=== PATIENT | female | born 1930 | race African-American/Black ===

== ENCOUNTER 2016-10-14 16:30 | Observation (INO) ==
--- NOTE | 2016-10-14 16:47 | Emergency Department Note ---
Disposition Clinical Impression: Syncope Qualifiers: Syncope type: unspecified Qualified Code(s): R55 - Syncope and collapse Disposition: Admitted As Inpatient Condition: Good Referrals: NO,PCP [Non-Partnered Physician] - Forms: ED Satisfaction Letter Time of Disposition: 18:18 Syncope HPI - General Chief Complaint: ED Syncope Stated Complaint: syncope/face injury Time Seen by Provider: 10/14/16 16:36 Source: patient Limitations: no limitations Nursing Notes Reviewed: Yes Vital Signs Reviewed: Yes - History of Present Illness HPI Narrative: 86-year-old who used the bathroom today when she stood up she suffered a syncopal episode striking her head. Family member was in the next room heard her fall when she went in to check on her she was on the floor but awake. Patient states she has a history of previous blood clots 6 years ago she's not on any blood thinner now she had a little chest discomfort is concerned she may have had a blood clot in her lung. 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 Duration: second(s) Prodromal Symptoms: none Witnessed: no Context: after urination Injuries Sustained Associated with Event: face, head Current Symptoms: none History: none Treatments prior to arrival: none - Related Data Home Medications Medication Instructions Recorded Confirmed Cholecalciferol (D-3) [Vitamin D] 2,000 unit PO DAILY 02/12/15 09/30/16 Losartan/Hydrochlorothiazide 1 tab PO DAILY 02/12/15 09/30/16 [Losartan-Hctz 100-25 mg Tab] Albuterol Neb [Proventil Neb] 2.5 mg IH Q4H PRN 06/06/16 09/30/16 Albuterol Sulfate [Proair Hfa] 2 puff IH Q4H PRN 06/06/16 09/30/16 Furosemide [Lasix] 40 mg PO DAILY 06/06/16 09/30/16 Previous Rx's Medication Instructions Recorded Meclizine [Antivert] 12.5 mg PO TID PRN 30 Days 08/11/15 Montelukast [Singulair] 10 mg PO HS tablet 08/11/15 Ascorbic Acid [Vitamin C] 1 tab PO DAILY #30 tablet 01/06/16 Furosemide [Lasix] 20 mg PO DAILY #30 tablet 06/07/16 Potassium Chloride 1 tab PO DAILY #30 tab.er.prt 07/06/16 Pantoprazole Sodium [Protonix] 40 mg PO DAILY #90 tablet. 09/30/16 Allergies Allergy/AdvReac Type Severity Reaction Status Date / Time No Known Allergies Allergy Verified 06/06/16 13:13 All systems ED: reviewed and negative except as stated. Constitutional: Denies: fever, chills, weakness, weight change Eyes: Denies: eye pain, eye discharge, vision change ENT ED: Denies: ear pain, throat pain, dental pain, hearing loss, epistaxis, congestion, dysphagia Cardiovascular: Reports: syncope. Denies: chest pain, palpitations, dyspnea on exertion, edema Respiratory: Denies: cough, dyspnea, wheezes, hemoptysis, stridor Gastrointestinal: Denies: abdominal pain, nausea, vomiting, diarrhea, constipation, hematemesis, melena, hematochezia Genitourinary: Denies: dysuria, frequency, hematuria, discharge Musculoskeletal: Denies: back pain, neck pain, arthralgia, myalgia Integumentary: Denies: rash, abrasion, lesions Neurological: Denies: headache, weakness, numbness, paresthesias, confusion, abnormal gait, vertigo Psychiatric: Denies: anxiety, depression, suicidal thoughts, homicidal thoughts , auditory hallucinations, visual hallucinations Endocrine: Denies: fatigue Hematological/Lymphatic: Denies: easy bleeding, easy bruising Allergic/Immunologic: Denies: facial swelling, urticaria Past Medical History - Past Medical History Medical history: Reports: asthma, cancer, DVT, diabetes, hyperlipidemia, hypertension, other Surgical history: Reports: BUD/BSO Psychiatric history: Reports: no psych 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: Reports: no SUPERVISOR PAINT history - Social History Smoking Status: Former smoker Smokeless Tobacco Status: No Alcohol use: Reports: none Drug use: Reports: none Physical Exam - General Limitations: no limitations General appearance: alert - Head Head exam: normocephalic, normal inspection - Eye Eye exam: Present: normal appearance, PERRL, EOMI - ENT ENT exam: normal exam, normal oropharynx, mucous membranes moist - Neck Neck exam: Present: normal inspection, full ROM, trachea midline - Chest Chest inspection: Present: normal inspection, symmetric chest wall rise - Respiratory Respiratory exam: Present: normal lung sounds bilaterally - Cardiovascular Cardiovascular exam: Present: regular rate, normal rhythm, normal heart sounds - Abdominal Exam Abdominal exam: Present: soft, Non-Tender. Absent: tenderness, distention, guarding, rebound, rigidity - Extremities Exam Extremities exam: Present: normal inspection, full ROM. Absent: tenderness, pedal edema - Expanded Lower Extremity Exam Neurovascular/Tendon exam: Absent: motor deficit, sensory deficit, tendon deficit Gait: observed and normal - Back Exam Back exam: Present: normal inspection, full ROM. Absent: tenderness - Neurological Exam Neurological exam: Present: alert, oriented X3 - Psychiatric Psychiatric exam: Present: normal affect, normal mood - Skin Skin exam: Present: warm, dry, intact, normal color Course - Consultations Consultation #1: Discussed with , it. Time: 18:18 Vital Signs Temperature 98.3 F 10/14/16 16:33 Pulse Rate 56 10/14/16 16:33 Respiratory Rate 16 10/14/16 16:33 Blood Pressure 174/70 10/14/16 16:33 O2 Sat by Pulse Oximetry 96 10/14/16 16:33 Temperature 98.3 F 10/14/16 16:33 Pulse Rate 55 10/14/16 17:49 Respiratory Rate 18 10/14/16 17:49 Blood Pressure 161/72 10/14/16 17:49 O2 Sat by Pulse Oximetry 98 10/14/16 17:49 Oxygen Delivery Oxygen Delivery Room Air Syncope - Lab Data Result diagrams: 10/14/16 17:18 10/14/16 17:18 Lab Results 10/14/16 10/14/16 10/14/16 Range/Units 17:18 17:18 17:18 WBC 9.8 (4.3-11.1) K/mcL RBC 4.99 H (3.82-4.97) M/mcL Hgb 13.2 (11.5-15.4) g/dL Hct 42.4 (35.3-44.9) % MCV 85.0 (83.0-100.0) fL MCH 26.5 L (28.0-33.3) pg MCHC 31.1 L (31.6-35.5) g/dL RDW 13.9 (11.5-14.5) % Plt Count 218 (140-400) K/mcL MPV 10.7 (9.4-12.4) fL Immature Gran % 0.7 (0-4) % Seg Neutrophils % 66.5 % Lymphocytes % 22.2 % Monocytes % 8.0 % Eosinophils % 2.2 % Basophils % 0.4 % Neutrophils # 6.5 (1.6-8.9) K/mcL Lymphocytes # 2.2 (0.6-4.6) K/mcL Monocytes # 0.8 (0.0-1.3) K/mcL Eosinophils # 0.2 (0.0-0.6) K/mcL Basophils # 0.0 (0.0-0.2) K/mcL PT 10.7 (9.4-12.1) Seconds INR 1.0 APTT 23.6 L (26.0-36.0) Seconds Sodium 141 (136-145) mEq/L Potassium 3.2 L (3.5-4.5) mEq/L Chloride 98 (98-109) mEq/L Carbon Dioxide 30 H (19-29) mEq/L BUN 35 H (7-20) mg/dL Creatinine 1.13 H (0.57-1.11) mg/dL Est GFR ( Amer) 55 L (> 60) Est GFR (Non-Af Amer) 46 L (> 60) BUN/Creatinine Ratio 31 H (6-26) Glucose 133 H (70-99) mg/dL Calculated Osmolality 302 H (280-300) Calcium 10.1 (8.6-10.8) mg/dL Troponin I (0-0.03) ng/mL 10/14/16 Range/Units 17:18 WBC (4.3-11.1) K/mcL RBC (3.82-4.97) M/mcL Hgb (11.5-15.4) g/dL Hct (35.3-44.9) % MCV (83.0-100.0) fL MCH (28.0-33.3) pg MCHC (31.6-35.5) g/dL RDW (11.5-14.5) % Plt Count (140-400) K/mcL MPV (9.4-12.4) fL Immature Gran % (0-4) % Seg Neutrophils % % Lymphocytes % % Monocytes % % Eosinophils % % Basophils % % Neutrophils # (1.6-8.9) K/mcL Lymphocytes # (0.6-4.6) K/mcL Monocytes # (0.0-1.3) K/mcL Eosinophils # (0.0-0.6) K/mcL Basophils # (0.0-0.2) K/mcL PT (9.4-12.1) Seconds INR APTT (26.0-36.0) Seconds Sodium (136-145) mEq/L Potassium (3.5-4.5) mEq/L Chloride (98-109) mEq/L Carbon Dioxide (19-29) mEq/L BUN (7-20) mg/dL Creatinine (0.57-1.11) mg/dL Est GFR ( Amer) (> 60) Est GFR (Non-Af Amer) (> 60) BUN/Creatinine Ratio (6-26) Glucose (70-99) mg/dL Calculated Osmolality (280-300) Calcium (8.6-10.8) mg/dL Troponin I 0.00 (0-0.03) ng/mL - EKG Data EKG attestation: Yes I reviewed and interpreted this EKG. EKG shows normal: sinus rhythm Rate: normal Rhythm: NSR Interpretation: no acute changes
[2016-10-14 17:26] LABS: Basophils % 0.4 %; Eosinophils # 0.2 K/mcL (0.0-0.6); Eosinophils % 2.2 %; Hematocrit 42.4 % (35.3-44.9); Hemoglobin 13.2 g/dL (11.5-15.4); Immature Granulocytes % 0.7 % (0-4); Lymphocytes # 2.2 K/mcL (0.6-4.6); Lymphocytes % 22.2 %; Mean Corpuscular HGB Conc 31.1 g/dL (31.6-35.5); Mean Corpuscular Hemoglobin 26.5 pg (28.0-33.3); Mean Platelet Volume 10.7 fL (9.4-12.4); Monocytes # 0.8 K/mcL (0.0-1.3); Neutrophils # 6.5 K/mcL (1.6-8.9); Platelet Count 218 K/mcL (140-400); Red Blood Count 4.99 M/mcL (3.82-4.97); Red Cell Distribution Width 13.9 % (11.5-14.5); Segmented Neutrophils % 66.5 %
[2016-10-14 17:33] LABS: Prothrombin Time 10.7 Seconds (9.4-12.1)
[2016-10-14 17:35] LABS: Activated Partial Thrombo Time 23.6 Seconds (26.0-36.0)
[2016-10-14 17:43] LABS: Calcium 10.1 mg/dL (8.6-10.8); Potassium 3.2 mEq/L (3.5-4.5)
[2016-10-14] MEDS ORDERED: 0.9 % Sodium Chloride 250 ML IVC ONE (18:06)
[2016-10-14] MEDS: 0.9 % Sodium Chloride 1,000 ML IVC SCH (18:12)
[2016-10-14] MEDS ORDERED: Naloxone 0.4 MG/ML INJ IVP PRN (21:22)
[2016-10-14] MEDS ORDERED: Acetaminophen 325 MG TABLET PO PRN (21:22)
[2016-10-14] MEDS ORDERED: D5% in Water 1,000 ML IVC PRN (21:22)
[2016-10-14] MEDS ORDERED: Dextrose Gel 15 GM PO PRN ×2 (21:22)
[2016-10-14] MEDS ORDERED: *HR* Promethazine 25 MG/ML VIAL IVP PRN (21:22)
[2016-10-14] MEDS ORDERED: *HR* Dextrose 50 % in Water (Syg) 50 ML SYRINGE IVP PRN (21:22)
--- NOTE | 2016-10-14 21:46 | Internal Med History&Physical ---
<Theresa Vergara - Last Filed: 10/14/16 21:35> Date of Encounter: 10/14/16 Time of Encounter: 21:35 Assessment and Plan (1) Syncope Current visit: Yes Status: Acute likely etiology cardiac, orthostatic, secondary to carcinoid tumor, diuretic therapy without pulm vasular filling defect, no indication of PE, stable RLL nodule, enlarged LLL nodule compared to 11/2015 ECHO from 11/29 with EF 65%, moderate aortic regurgitation, diastolic CHF EKG: NSR headCT - for acute bleed carotid US from 11/29 evidence of nonstenotic plaque K3.2 BP 164/74, P55 will get ortho statics check Mg BUN 35/Cr1.13 glucose 133 IVF Hb 13.2 Qualifiers: Syncope type: unspecified Qualified Code(s): R55 - Syncope and collapse (2) Hypokalemia Current visit: Yes Status: Acute 3.2 will replace and monitor (3) CKD (chronic kidney disease) Current visit: Yes Status: Acute BUN 35/Cr 1.13 close to baseline GFR 46 IVF Qualifiers: Chronic kidney disease stage: unspecified stage Qualified Code(s): N18.9 - Chronic kidney disease, unspecified (4) Diabetes Current visit: No Status: Chronic glucose 133 sliding scale diabetic diet monitor Qualifiers: Diabetes mellitus type: type 2 Diabetes mellitus complication status: without complication Qualified Code(s): E11.9 - Type 2 diabetes mellitus without complications (5) HTN (hypertension) Current visit: No Status: Chronic 164/74 goal systolic of 150-160s per oncology secondary to carciniod tumor Qualifiers: Hypertension type: essential hypertension Qualified Code(s): I10 - Essential (primary) hypertension (6) Lightheadedness Current visit: No Status: Acute SCDs pharmocologic contraindicated due to recent GI gleed (7) History of GI bleed Current visit: No Status: Acute (8) Diastolic dysfunction Current visit: No Status: Acute (9) Moderate aortic regurgitation Current visit: No Status: Acute (10) Malignant neoplasm Current visit: No Status: Chronic (11) Dizziness Current visit: No Status: Acute (12) Hyperlipidemia Current visit: No Status: Acute Qualifiers: Hyperlipidemia type: unspecified Qualified Code(s): E78.5 - Hyperlipidemia , unspecified (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 Curry is a 86 year old female c/o syncope. PMHx carcinoid tumor, CVA, HLD, HTN, asthma, CHF,CKD,DM with c/o syncopal episode. Pt states she was at Dr. Rice office earlier today for HTN appointment when she went to the rest room. Upon standing from seated pt immediately passed out. Home nurse who took her to appointment heard her fall and found her on the ground, she was down for apprximately 2-3mins. Pt states prior to event she had no difficulty with urination, did not have any palpitations, racing heart beats, diaphoresis, dizziness, vision change. She states that she was asymptomatic prior to event, does not recall fall and "came to" while laying on the floor with a bloody nose. After syncopal episode, pt states she felt "queasy to her stomach" had cold sweats some racing heartbeats and anxiety. Pt states she has had some recent trouble with her blood pressure running high this week, as well as problems with her blood sugars due to recently stopping steriod taper she was placed on for asthma exacerbations. Pt admits to slight 3/10 frontal headache and nasal pain from were she hit her head when she fell. Pt also admits to several episodes of "dizziness" off and on recently, but has never fainted before. Pt states she had not eaten or had much water to drink today. Pt denies current CP, change in vision, weakness, SOB, numbness/tingling. Past Med Surg Social Fam HX - Past Medical History Medical history: asthma, cancer, CHF, CVA, DVT, diabetes, hyperlipidemia, hypertension, renal disease, other Psychiatric history: no psych history - Past Surgical History Surgical History: BUD/BSO - Social History Smoking Status: Former smoker Smokeless Tobacco Status: No Alcohol use: none Drug use: none - Family History Father Adopted: No Family Member Ethnicity: Non- Living Status: Hx Family Cardiac Disorders: No Hx Family Respiratory Disorders: Yes (lung cancer) Hx Family Cancer: Yes (lung) Hx Family GI Disorders: No Hx Family Endocrine Disorder: No Hx Family Neuromuscular Disorders: No Hx Family Neurologic Disorders: No Hx Family HEENT Disorders: No Hx Family Autoimmune Disorders: No Internal Medicine - H&P: Meds Losartan/Hydrochlorothiazide [Losartan-Hctz 100-25 mg Tab] 1 tab PO DAILY [History] Montelukast [Singulair] 10 mg PO HS tablet 08/11/15 [Rx] Albuterol Sulfate [Proair Hfa] 2 puff IH Q4H PRN 06/06/16 [History] Furosemide [Lasix] 40 mg PO DAILY 06/06/16 [History] Pantoprazole Sodium [Protonix] 40 mg PO DAILY #90 tablet.dr 09/30/16 [Rx] Amlodipine [Norvasc] 2.5 mg PO DAILY 10/14/16 [History] Ascorbic Acid [Vitamin C] 500 mg PO DAILY 10/14/16 [History] Potassium Chloride 10 meq PO DAILY 10/14/16 [History] Allergies No Known Allergies Allergy (Verified 06/06/16 13:13) All Systems PM: A 10-system review of systems was performed and is negative for pertinent findings except as documented above in the HPI. - Constitutional Constitutional: falls, no chills, no fever(s), no night sweats - EENT Eyes: no change in vision, no discharge, no pain, no photophobia Nose, mouth and throat: no dysphagia, no nasal discharge, no neck pain, no sore throat - Cardiovascular Cardiovascular ROS IM: no chest pain, no diaphoresis, no dyspnea, no lightheadedness, no palpitations, no syncope - Respiratory Respiratory: no cough, no dyspnea, no wheezing, no excessive phlegm production - Gastrointestinal Gastrointestinal: no abdominal pain, no diarrhea, no hematemesis, no hematochezia, no melena, no nausea, no vomiting - Genitourinary Genitourinary: no change in urinary stream, no dysuria, no flank pain, no hematuria - Musculoskeletal Musculoskeletal ROS IM: no numbness, no tingling - Integumentary Integumentary IM: no rash, no unusual bruising - Neurological Neurological ROS: disequilibrium, dizziness, headache(s), memory loss, no convulsions, no numbness, no tingling - Constitutional Vitals: Temp Pulse Resp BP Pulse Ox 97.9 F 61 16 177/72 97 10/14/16 20:46 10/14/16 20:46 10/14/16 20:46 10/14/16 20:46 10/14/16 20:46 General appearance: Present: A&O X 3, pleasant, no acute distress, answers questions appropriately - Head Head exam: Present: atraumatic, normocephalic Additional comments: frontal and nasal bone tenderness, minimal bruising - Eye Eye exam: Present: EOMI, PERRL, conjuntiva pink, sclera anicteric Pupils: Present: PERRL - Neck Neck exam general surgery: Present: supple, trachea midline. Absent: lymphadenopathy - Respiratory Respiratory exam: Present: CTAB. Absent: accessory muscle use, rales, rhonchi, wheezes - Cardiovascular Cardiovascular exam: Present: RRR, +S1, +S2. Absent: diastolic murmur, gallop, rubs, systolic murmur - GI/Abdominal GI/Abdominal exam: Present: normal bowel sounds, soft, no peritoneal signs. Absent: distended, tenderness - Extremities Exam Extremities exam: Present: warm, radial pulses palpable and symetrical. Absent : calf tenderness, cyanotic, pedal edema - Neurological Exam Neurological exam: Present: CN II-XII intact, oriented X3, no focal deficits. Absent: pronater drift, facial droop, speech deficit - Skin Skin exam: Present: dry, intact Internal Med - H&P Results - Labs CBC & Chem 7: 10/14/16 17:18 10/14/16 17:18 <Syed Caballero - Last Filed: 10/14/16 22:57> Date of Encounter: 10/14/16 Internal Medicine - H&P: HPI History of present illness: Ms. Curry is a 86 year old female Past Med Surg Social Fam HX - Family History Father Adopted: No Family Member Ethnicity: Non- Living Status: Hx Family Cardiac Disorders: No Hx Family Respiratory Disorders: Yes (lung cancer) Hx Family Cancer: Yes (lung) Hx Family GI Disorders: No Hx Family Endocrine Disorder: No Hx Family Neuromuscular Disorders: No Hx Family Neurologic Disorders: No Hx Family HEENT Disorders: No Hx Family Autoimmune Disorders: No Mother Hx Family Neuromuscular Disorders: Yes Hx Family Neurologic Disorders: Yes All Systems PM: A 10-system review of systems was performed and is negative for pertinent findings except as documented above in the HPI. - Constitutional Vitals: Temp Pulse Resp BP Pulse Ox 97.9 F 61 16 177/72 97 10/14/16 20:46 10/14/16 20:46 10/14/16 20:46 10/14/16 20:46 10/14/16 20:46 Internal Med - H&P Results - Labs CBC & Chem 7: 10/14/16 17:18 10/14/16 17:18 - Attending Attestation I examined this patient and my medical decision-making was reviewed with the POULTRY FARMER EGG/PA/Advanced Practice Nurse/Resident Physician. I agree with the documented findings, disposition and treatment plan as described except to the extent set forth below. Ms. Curry is a very pleasant lady. I examined the patient independent. I did discuss the case with the resident Dr. Theresa Vergara. I agree with her physical examination findings, assessment and plan. Continue with telemetry monitoring. Supplemental potassium. Monitor electrolytes.
[2016-10-15] MEDS: Insulin LISPRO 300 UNITS/3 ML VIAL SQ SCH ×4 (00:08→17:04)
[2016-10-15 00:22] LABS: Magnesium 2.2 mg/dL (1.6-2.6); Phosphorous 3.2 mg/dL (2.3-4.7)
[2016-10-15 04:28] LABS: Hematocrit 37.1 % (35.3-44.9); Mean Corpuscular HGB Conc 32.3 g/dL (31.6-35.5); Mean Corpuscular Hemoglobin 27.1 pg (28.0-33.3); Mean Corpuscular Volume 83.9 fL (83.0-100.0); Mean Platelet Volume 10.8 fL (9.4-12.4); Platelet Count 243 K/mcL (140-400); Red Blood Count 4.42 M/mcL (3.82-4.97); Red Cell Distribution Width 14.1 % (11.5-14.5)
[2016-10-15 04:46] LABS: Alanine Aminotransferase 12 Units/L (0-55); Albumin 3.5 g/dL (3.5-5.0); Albumin/Globulin Ratio 1.2 (1.1-2.2); Alkaline Phosphatase 56 Units/L (38-126); Aspartate Amino Transferase 14 Units/L (5-34); BUN/Creatinine Ratio 31 (6-26); Bilirubin,Total 0.5 mg/dL (0.2-1.2); Blood Urea Nitrogen 32 mg/dL (7-20); Calcium 9.4 mg/dL (8.6-10.8); Carbon Dioxide 28 mEq/L (19-29); Chloride 104 mEq/L (98-109); Glucose 54 mg/dL (70-99); Osmolality,Calculated 300 (280-300); Potassium 3.1 mEq/L (3.5-4.5); Sodium 143 mEq/L (136-145); Total Protein 6.5 g/dL (6.0-8.3); eGFR For African Americans > 60 (> 60); eGFR For Non-African Americans 51 (> 60)
[2016-10-15] MEDS: *HR* Heparin 5,000 UNIT/ML VIAL SQ SCH ×2 (05:48→18:02)
[2016-10-15] MEDS: amLODIPine 5 MG TABLET PO SCH (08:52)
[2016-10-15] MEDS: 0.9 % Sodium Chloride 1,000 ML IVC SCH ×2 (11:10→19:33)
[2016-10-15] MEDS: Pantoprazole 40 MG VIAL IVP SCH (16:28)
--- NOTE | 2016-10-15 17:00 | Internal Med Progress Note ---
Date of Encounter: 10/15/16 Time of Encounter: 10:00 - Assessment and plan (1) Syncope Current Visit: Yes Status: Acute Assessment and plan: Pt reports having a loss of consciousness at drs office yesterday. Pt states that she went to the bathroom prior to leaving the appointment and when she was standing up, she had a syncopal episode. She is unaware of how long she was unconscious. Chest xray is negative. CTA shows no evidence of PE, but nodules are noted and compared to prior exams. Nodule in RLL is unchanged, LLL nodule has increased slightly since 12/08/15. Pt had carotid duplex in 05/2016 which showed minimal plaque bilaterally. Pt denies any symptoms at the time of the event. No vision changes, sob, dizziness, n/v, chest pain. Head CT negative for any intracranial abnormality. 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 + loss of consciousness. Pt has +nasal fx from fall. She denies pain. Head CT negative, Cervical spine CT negative, chronic degenerative changes. Plan as above. Qualifiers: Encounter type: initial encounter Qualified Code(s): W19.XXXA - Unspecified fall, initial encounter (3) Diabetes Current Visit: No Status: Chronic Assessment and plan: A1c at goal. Accuchecks slightly elevated. Diabetic diet Sliding scale insulin Accuchecks achs Qualifiers: Diabetes mellitus type: type 2 Diabetes mellitus complication status: without complication Diabetes mellitus correction insulin use: without correction use Qualified Code(s): E11.9 - Type 2 diabetes mellitus without complications (4) HTN (hypertension) Current Visit: No Status: Chronic Assessment and plan: Chronic. Continue home medications. Qualifiers: Hypertension type: essential hypertension Qualified Code(s): I10 - Essential (primary) hypertension (5) Metastatic carcinoid tumor Current Visit: No Status: Chronic Assessment and plan: Stable. Pt is followed by Oncology, Dr. Lopez. (6) COPD (chronic obstructive pulmonary disease) Current Visit: Yes Status: Chronic Assessment and plan: Pt reports history of COPD. Stable and well-controlled. Continue home medications. Qualifiers: COPD type: chronic bronchitis Chronic bronchitis type: unspecified Qualified Code(s): J42 - Unspecified chronic bronchitis (7) DVT prophylaxis Current Visit: No Status: Acute Assessment and plan: Heparin subq - Time Spent With Patient less than 15 minutes - Subjective Interval history: Pt reports fall at Dr. Tucker's office yesterday. She states that she went to the bathroom prior to leaving the office and stood up from the toilet and remembers waking up after that. She says that she did lose consciousness, but is unsure of how long. Her home health aide was with her and assited her. Pt did fx her nose in the fall. She denies sob, dizziness, lightheadeness, chest pain, or dyspnea prior to event. She was seeing PCP due to recent hypertension and hyperglycemia. She was started on Norvasc at the appointment and took her first dose today. - Constitutional Vitals: Temp Pulse Resp BP Pulse Ox 97.7 F 53 16 180/60 98 10/15/16 16:11 10/15/16 16:11 10/15/16 16:11 10/15/16 16:11 10/15/16 16:11 General appearance: Present: A&O X 3, pleasant, no acute distress, answers questions appropriately - Head Additional comments: Pt has bruising to both cheeks from fall yesterday. - Expanded Head Exam Head exam expanded: Present: contusion, hematoma - Eye Eye exam: Present: normal appearance, PERRL, conjuntiva pink - ENT ENT exam: Present: mucous membranes moist, normal exam - Neck Neck exam general surgery: Present: normal inspection. Absent: lymphadenopathy , tenderness - Respiratory Respiratory exam: Present: CTAB. Absent: decreased breath sounds, rales, respiratory distress, rhonchi, stridor, wheezes, tachypnea - Cardiovascular Cardiovascular exam: Present: RRR, +S1, +S2. Absent: diastolic murmur, systolic murmur - Back Exam Back exam: Present: normal inspection. Absent: tenderness - Neurological Exam Neurological exam: Present: alert, oriented X3, no focal deficits, strengths equal and symetr throughout. Absent: pronater drift, facial droop, speech deficit Internal Medicine: Result - Labs CBC & Chem 7: 10/15/16 03:26 10/15/16 03:26 Labs: Short CBC 10/15/16 Range/Units 03:26 WBC 13.7 H (4.3-11.1) K/mcL Hgb 12.0 (11.5-15.4) g/dL Hct 37.1 (35.3-44.9) % Plt Count 243 (140-400) K/mcL BMP 10/15/16 03:26 Sodium 143 Potassium 3.1 L Chloride 104 Carbon Dioxide 28 BUN 32 H Creatinine 1.03 Glucose 54 L Calcium 9.4 Cardiac Enzymes 10/14/16 10/15/16 10/15/16 Range/Units 23:48 03:26 09:51 Troponin I 0.01 0.02 0.01 (0-0.03) ng/mL Liver Function 10/15/16 Range/Units 03:26 Total Bilirubin 0.5 (0.2-1.2) mg/dL AST 14 (5-34) Units/L ALT 12 (0-55) Units/L Alkaline Phosphatase 56 (38-126) Units/L Albumin 3.5 (3.5-5.0) g/dL - ABG Interpretation ABG results: PT/INR, D-dimer PT 10.7 Seconds (9.4-12.1) 10/14/16 17:18 Consult Discharge Plan - Plan Referrals: Antwan Tucker Jr, MD [Primary Care Provider] -
[2016-10-15] MEDS ORDERED: Insulin LISPRO 300 UNITS/3 ML VIAL SQ SCH (21:00)
[2016-10-16] MEDS: 0.9 % Sodium Chloride 1,000 ML IVC SCH (03:43)
[2016-10-16] MEDS: *HR* Heparin 5,000 UNIT/ML VIAL SQ SCH (05:08)
[2016-10-16 05:55] LABS: Hematocrit 35.6 % (35.3-44.9); Hemoglobin 11.3 g/dL (11.5-15.4); Immature Granulocytes % 0.7 % (0-4); Lymphocytes % 25.7 %; Mean Corpuscular HGB Conc 31.7 g/dL (31.6-35.5); Mean Corpuscular Volume 85.2 fL (83.0-100.0); Mean Platelet Volume 10.7 fL (9.4-12.4); Platelet Count 177 K/mcL (140-400); Red Blood Count 4.18 M/mcL (3.82-4.97); Red Cell Distribution Width 14.1 % (11.5-14.5); Segmented Neutrophils % 61.8 %
[2016-10-16 05:56] LABS: Basophils % 0.6 %; Eosinophils # 0.3 K/mcL (0.0-0.6); Eosinophils % 4.2 %; Lymphocytes # 1.9 K/mcL (0.6-4.6); Monocytes # 0.5 K/mcL (0.0-1.3); Neutrophils # 4.5 K/mcL (1.6-8.9)
[2016-10-16 06:09] LABS: BUN/Creatinine Ratio 23 (6-26); Calcium 8.6 mg/dL (8.6-10.8); Carbon Dioxide 27 mEq/L (19-29); Chloride 112 mEq/L (98-109); Glucose 139 mg/dL (70-99); Osmolality,Calculated 303 (280-300); Sodium 144 mEq/L (136-145); eGFR For African Americans > 60 (> 60); eGFR For Non-African Americans > 60 (> 60)
[2016-10-16 06:18] LABS: Blood Urea Nitrogen 19 mg/dL (7-20)
[2016-10-16] MEDS: Insulin LISPRO 300 UNITS/3 ML VIAL SQ SCH ×2 (07:53→12:10)
[2016-10-16] MEDS: amLODIPine 5 MG TABLET PO SCH (07:59)
[2016-10-16] MEDS: Pantoprazole 40 MG VIAL IVP SCH (08:00)
[2016-10-16] MEDS ORDERED: Ascorbic Acid 500 MG TABLET PO SCH (09:00)
--- NOTE | 2016-10-16 10:42 | Electrocardiograph Report ---
[address] [address] Test Date: 2016-10-14 Pat Name: Jennifer Curry Department: 104 Room: 3B12 Gender: F Audit Lead: : 1930 Requested By: Ryan Hernandez Order Number: [id number] Reading MD: Wu Guardado MD Measurements Intervals Ryder Rate: 54 P: 76 MA: 249 QRS: 18 QRSD: 93 T: 44 QT: 437 QTc: 422 Interpretive Statements SINUS BRADYCARDIA WITH FIRST DEGREE AV BLOCK WITH FREQUENT SUPRAVENTRICULAR PREMATURE COMPLEXES IN A BIGEMINAL PATTERN Electronically Signed On 10-16-2016 10:41:37 EDT by Wu Guardado MD
[2016-10-16 11:14] VITALS: BP 169/67
--- NOTE | 2016-10-16 13:00 | ECHO - Doppler Report ---
Echocardiogram Name: Jennifer Curry Date of Study: 10/16/2016 Date: 1930 Ht: 67.0 in Medical Record#: [id number] Age: 86 Wt: 174.0 lb Gender: Female BSA: 1.91 Order #: [id number] Location: [facility] Room #: 3B12 Reading Physician: Yamile Graff DO Geoint Analyst: Migdalia Crystal Ordering Physician: Madeleine Crum CNP Primary Physician: Antwan Tucker MD Indications: dizzy, syncope Impressions: LVEF 55%. Normal left ventricular size and systolic function. Normal right ventricular size and function. Moderate aortic regurgitation. Mild mitral regurgitation. Mild tricuspid regurgitation. No pulmonary hypertension. Left Ventricular Wall Motion: Rest Echo Findings All wall segments showed normal motion. Findings: Study Quality * Technically adequate exam. ECG Findings * Normal sinus rhythm. Left Ventricle * Normal LV chamber size, wall thickness and function. * LVEF 55%. * Moderate left ventricular diastolic dysfunction. Mitral Valve * Normal mitral valve structure. * No mitral stenosis. * Mild mitral regurgitation. Aortic Valve * Aortic valve not well visualized. * No aortic stenosis. * Moderate aortic regurgitation. Tricuspid Valve * Normal tricuspid valve structure. * Mild tricuspid regurgitation. * Estimated RA pressure is 3 mmHg. * Estimated RVSP is 31 mmHg. * No pulmonary hypertension. Pulmonic Valve * Pulmonic valve is not well visualized. * No pulmonic stenosis. * No pulmonic regurgitation. Pulmonary Artery * Pulmonary artery not well visualized. Right Ventricle * Normal right ventricular structure and function. Right Atrium * Normal right atrial size. Left Atrium * Mildly dilated left atrium. Interatrial Septum * No evidence of PFO by color Doppler. IVC * Normal IVC dimensions and inspiratory collapse. Pericardium * There is no pericardial effusion present. Aorta * Normally sized aortic root. History Hypertension Diabetes Family History of CAD 06/06/2016 a Previous Echo was performed. Measurements: BP: 157/ 66 2D Normal Values IVSd: 1.00 cm 0.6 - 1.0 cm LVIDd: 3.90 cm 3.7 - 5.6 cm LVPWd: 1.10 cm 0.6 - 1.1 cm LVIDs: 2.70 cm 1.5 - 3.6 cm AO: 2.30 cm < 4.0 cm LA: 3.40 cm 2.0 - 4.0cm %FS: 30.80 cm >25 % LA volume: 62 Mitral Valve Peak E:.73 m/sec Peak A:.59 m/sec E/A Ratio:1.2 Peak E' Lat Micky:8.58 cm/s Peak E' Med Micky:7.8 cm/s E/E' Lat Ratio:8.5 E/E' Med Ratio:9.3 Tricuspid Valve TV Regurg Peak Grad: 28.00mmHg TV Regurg Peak Micky: 2.66m/sec Updated by Yamile Graff on 10/16/2016 12:49:14 PM electronically signed on 10/16/2016 12:54:03 PM with status of Final Wall Motion Olsen: 1=Normal, 2=Hypokinesis, 3=Akinesis, 4=Dyskinesis, 5=Aneurysmal, 6=Hyperkinetic, X=Not Visualized (Blank)=Missing
--- NOTE | 2016-10-16 14:33 | Discharge Summary ---
Date of Encounter: 10/16/16 Time of Encounter: 08:25 - Discharge Diagnosis (1) Syncope Priority: Primary Status: Acute Comments: Pt had a syncopal episode at PCP office 2 days ago. She denies any symptoms leading up to the event, no nausea, sob, diaphoresis, chest pain, dizziness. States that she stood up from the toilet and woke up in the floor. She did sustain nasal fracture from the fall. Her EKG was normal sinus rhythm, Echo showed LVEF 55% with normal systolic function. Mild aortic, mitral, and tricuspid regurgitation noted, as well. Her head CT was negative for infarct or intracranial abnormality. She has had no other episodes or difficulty since admission. Carotids from 11/29 show evidence of non-stenotic plaque. She was being seen at PCP for hyperglycemia and HTN. She was started on Norvasc, which does not seem to have had much effect here, it was a low dose. I will increase the dose. Syncope most likely from diuretic therapy and carcinoid tumor. Her blood pressure has been slightly elevated while she has been here, however, that is what she was being seen for at her PCP office. I will decrease her dose of lasix and losartan/Hctz. Pt will follow up with PCP for a hospital follow up and reevaluation of medications. Qualifiers: Syncope type: unspecified Qualified Code(s): R55 - Syncope and collapse (2) Fall Priority: Secondary Status: Acute Comments: Pt fell at PCP office, nasal fracture is the result. Pt states that she does not remember the event. She denies pain and has no other injury. She had several xrays and a head and cervical CT, all negative for fracture, dislocation , or abnormality. Pt denies pain. Qualifiers: Encounter type: initial encounter Qualified Code(s): W19.XXXA - Unspecified fall, initial encounter (3) Diabetes Priority: Secondary Status: Chronic Comments: A1c is at goal. Accuchecks remain slightly elevated. Pt will continue home medications and accuchecks as normal after discharge. Qualifiers: Diabetes mellitus type: type 2 Diabetes mellitus complication status: without complication Diabetes mellitus retirement insulin use: without retirement use Qualified Code(s): E11.9 - Type 2 diabetes mellitus without complications (4) HTN (hypertension) Priority: Secondary Status: Chronic Comments: Pt has been experiencing HTN for several weeks, was being seen at PCP office for same when she fell and was later admitted. I will increase the Norvasc dose, decrease HCTZ, and decrease lasix dose. Pt will need to follow up with PCP for reevaluation. 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 Stable. Pt is followed by oncology, Dr. Lopez. (6) COPD (chronic obstructive pulmonary disease) Priority: Secondary Status: Chronic Comments: Chronic. Well-controlled. Continue home medications. Qualifiers: COPD type: chronic bronchitis Chronic bronchitis type: unspecified Qualified Code(s): J42 - Unspecified chronic bronchitis (7) Nasal bone fx-closed Priority: Secondary Status: Acute Comments: Patient sustained a closed fracture of her nasal bones after fall at primary care physician's office. There is good alignment. Minimal racial bruising. No epistaxis. Patient denies pain or headache. She has been applying ice pack and has not requested any pain medication. She is not having any difficulty breathing through her nose. Qualifiers: Encounter type: initial encounter Qualified Code(s): S02.2XXA - Fracture of nasal bones, initial encounter for closed fracture (8) DVT prophylaxis Priority: Secondary Status: Acute Comments: Subq heparin - Discharge Medications Prescriptions: Amlodipine [Norvasc] 5 mg PO DAILY #30 tablet Furosemide [Lasix] 20 mg PO DAILY #30 tablet Losartan/Hydrochlorothiazide [Hyzaar 100-12.5 Tablet] 1 each PO DAILY #30 tablet Home Medications: Montelukast [Singulair] 10 mg PO HS tablet 08/11/15 [Rx] Albuterol Sulfate [Proair Hfa] 2 puff IH Q4H PRN 06/06/16 [History] Pantoprazole Sodium [Protonix] 40 mg PO DAILY #90 tablet. 09/30/16 [Rx] Ascorbic Acid [Vitamin C] 500 mg PO DAILY 10/14/16 [History] Potassium Chloride 10 meq PO DAILY 10/14/16 [History] Amlodipine [Norvasc] 5 mg PO DAILY #30 tablet 10/16/16 [Rx] Furosemide [Lasix] 20 mg PO DAILY #30 tablet 10/16/16 [Rx] Losartan/Hydrochlorothiazide [Hyzaar 100-12.5 Tablet] 1 each PO DAILY #30 tablet 10/16/16 [Rx] Allergies/Adverse Reactions: Allergies No Known Allergies Allergy (Verified 06/06/16 13:13) Procedures/tests Complete & Pending: Procedures Performed prior 72 hours Category Date Time Status EV echocardiogram Routine Y 10/16/16 16:54 Completed Date of admission: 10/14/16 18:51 Primary care physician: Antwan Tucker Jr, MD Discharging clinician: Madeleine Crum Anticipated date of discharge: 10/16/16 - Patient Status Disposition: Home, Self-Care Functional capacity at discharge: independent ambulation Overall status at discharge: patient is back to baseline - Discharge Instructions Follow Up With: Antwan Tucker Jr, MD [Primary Care Provider] - Additional Instructions: Take your medications as directed. Restart your home medications Please follow up with Dr. Tucker within the next week for a hospital follow up and reevaluation of your medications and blood pressure Return to the ED if you have any other problems or concerns or if you have any new or concerning symptoms. - Diet and Activity Activity: increase activity as tolerated Diet: advance to your usual diet Interval History: Patient was admitted 2 days ago after syncopal episode at her primary care physician's office. She went to the bathroom, and she stood up from the toilet she evidently had a positive loss of consciousness. She does not remember the event and remembers waking up in the bathroom floor with blood coming from her nose. She denies symptoms prior to the event. She denies nausea, diaphoresis, shortness of breath, dizziness, or chest pain. She was brought to the emergency department for evaluation. She was actually being seen at primary care for hypertension and hyperglycemia. She was recently treated with steroids for a respiratory problem. She has nasal fractures from fall. Chest x -ray is negative. CTA shows no evidence of PE, but nodules are noted and compared to prior exams and are stable. Patient is aware of these and does follow for them. She had carotid duplex in May, which showed minimal plaque bilaterally. Her head CT was also negative for any intracranial abnormality. Patient also had a cervical spine CT in the ER which was negative. Patient had an echocardiogram today, LVEF is 55% with normal systolic function. There is mild mitral regurgitation and mild tricuspid regurgitation, and moderate aortic regurgitation. Her syncopal episode is most likely orthostatic, secondary to diuretic therapy and carcinoid tumor. She had been started on Norvasc 2.5 mg at primary care the day of her syncopal episode, she received her first dose here. It did not seem to have much effect, although patient's hydrochlorothiazide and Lasix were held during hospitalization. I did decrease hydrochlorothiazide to half and Lasix by half and bumped the Norvasc to 5 mg by mouth. I did give her a dose of IV hydralazine one time for hypertension this morning. Blood pressure was 169/67. Patient is alert and oriented, she denies headache, blurred vision, nausea, palpitations, chest pain. She states that she feels much better and is ready to go home. She is stable for discharge. Hospital course: Ms. Curry is a 86 year old female - Time Spent with Patient Total time spent providing and/or coordinating discharge services: - Constitutional Vitals: Temp Pulse Resp BP Pulse Ox 98.0 F 67 16 169/67 100 10/16/16 11:08 10/16/16 11:08 10/16/16 11:08 10/16/16 11:08 10/16/16 11:08 General appearance: Present: A&O X 3, pleasant, no acute distress, answers questions appropriately - Head Additional comments: Patient has fading bruising to inner canthus bilateral eyes - Eye Eye exam: Present: normal appearance, conjuntiva pink - ENT ENT exam: Present: mucous membranes moist, normal exam - Respiratory Respiratory exam: Present: CTAB. Absent: decreased breath sounds, rales, respiratory distress, rhonchi, stridor, wheezes, tachypnea - Cardiovascular Cardiovascular exam: Present: RRR, +S1, +S2. Absent: diastolic murmur, systolic murmur - Expanded Cardiovascular Exam Peripheral pulses: 1+: Dorsalis Pedis (L) PM, Dorsalis Pedis (R) PM - GI/Abdominal GI/Abdominal exam: Present: normal bowel sounds, soft. Absent: tenderness - Extremities Exam Extremities exam: Present: warm, radial pulses palpable and symetrical. Absent : pedal edema, tenderness - Neurological Exam Neurological exam: Present: alert, oriented X3. Absent: facial droop, speech deficit
== END 2016-10-16 16:01 | disposition home health service (06) ==
LOC: EMEROO 16:30 → 3BNU 16:30
PROVIDERS: ADMIT Internal Medicine; ATTEND Registered Nurse

== ENCOUNTER 2016-10-18 23:15 | Inpatient (IN) ==
[2016-10-19 00:54] LABS: Basophils % 0.5 %; Eosinophils # 0.2 K/mcL (0.0-0.6); Eosinophils % 1.8 %; Hematocrit 39.1 % (35.3-44.9); Hemoglobin 12.4 g/dL (11.5-15.4); Immature Granulocytes % 0.9 % (0-4); Lymphocytes # 1.8 K/mcL (0.6-4.6); Lymphocytes % 20.3 %; Mean Corpuscular HGB Conc 31.7 g/dL (31.6-35.5); Mean Platelet Volume 10.7 fL (9.4-12.4); Monocytes # 0.5 K/mcL (0.0-1.3); Monocytes % 6.1 %; Neutrophils # 6.2 K/mcL (1.6-8.9); Platelet Count 211 K/mcL (140-400); Red Cell Distribution Width 14.2 % (11.5-14.5); Segmented Neutrophils % 70.4 %
--- NOTE | 2016-10-19 00:59 | Emergency Department Note ---
Disposition Clinical Impression: Acute renal insufficiency Disposition: Admitted As Inpatient Condition: Fair Referrals: Antwan Tucker Jr, MD [Primary Care Provider] - Forms: ED Satisfaction Letter Time of Disposition: 02:15 General Adult HPI - General Chief complaint: ED Dizziness Stated complaint: high BP, dizzy Time Seen by Provider: 10/19/16 00:27 Source: patient, family Limitations: no limitations Nursing Notes Reviewed: Yes Vital Signs Reviewed: Yes - History of Present Illness HPI Narrative: Alert and oriented and nontoxic-appearing 86-year-old female presents to the emergency department for evaluation of "high blood pressure and dizziness". The patient states just prior to arrival to the emergency department, she obtained a blood pressure reading from her home blood pressure machine of 185/ 85. She also states that she took her blood sugar at home and it was slightly elevated at 205. She states that she was recently admitted to this hospital for further evaluation and workup of this exact same complaint. She was released on this past Monday. She was told to return for any recurrence of her symptoms. She also admits to being "worked up and anxious". She attributes this to a recently discontinued 5 day course of prednisone. She states that at the time that she obtained her elevated blood pressure reading, she did feel slightly dizzy, however denies having any visual disturbances at that time. She denies any associated chest pain or shortness of breath. She denies any headache, visual disturbances, fever, chills, nausea, vomiting, diarrhea, or any other concerns or complaints at this time. The patient is resting comfortably in bed at the time of my exam. Onset (ago): Just FLOOR HAND Pain Scale: 0 Associated symptoms: Denies: chest pain, cough, diaphoresis, fever/chills, headaches, loss of appetite, nausea/vomiting, shortness of breath, weakness - Related Data Home Medications Medication Instructions Recorded Confirmed Albuterol Sulfate [Proair Hfa] 2 puff IH Q4H PRN 06/06/16 10/14/16 Ascorbic Acid [Vitamin C] 500 mg PO DAILY 10/14/16 10/14/16 Potassium Chloride 10 meq PO DAILY 10/14/16 10/14/16 Previous Rx's Medication Instructions Recorded Montelukast [Singulair] 10 mg PO HS tablet 08/11/15 Pantoprazole Sodium [Protonix] 40 mg PO DAILY #90 tablet. 09/30/16 Amlodipine [Norvasc] 5 mg PO DAILY #30 tablet 10/16/16 Furosemide [Lasix] 20 mg PO DAILY #30 tablet 10/16/16 Losartan/Hydrochlorothiazide 1 each PO DAILY #30 tablet 10/16/16 [Hyzaar 100-12.5 Tablet] Allergies Allergy/AdvReac Type Severity Reaction Status Date / Time No Known Allergies Allergy Verified 06/06/16 13:13 All systems ED: reviewed and negative except as stated. Constitutional: Reports: as per HPI, other ("High blood pressure"). Denies: fever, chills, weakness, weight change Eyes: Denies: eye pain, eye discharge, vision change ENT ED: Denies: ear pain, throat pain, dental pain, hearing loss, epistaxis, congestion, dysphagia Cardiovascular: Denies: chest pain, palpitations, dyspnea on exertion, edema, syncope Respiratory: Denies: cough, dyspnea, wheezes, hemoptysis, stridor Gastrointestinal: Denies: abdominal pain, nausea, vomiting, diarrhea, constipation, hematemesis, melena, hematochezia Genitourinary: Denies: dysuria, frequency, hematuria, discharge Musculoskeletal: Denies: back pain, neck pain, arthralgia, myalgia Integumentary: Denies: rash, abrasion, lesions Neurological: Reports: as per HPI, other (dizziness). Denies: headache, weakness, numbness, paresthesias, confusion, abnormal gait, vertigo Psychiatric: Denies: anxiety, depression, suicidal thoughts, homicidal thoughts , auditory hallucinations, visual hallucinations Endocrine: Denies: fatigue Hematological/Lymphatic: Denies: easy bleeding, easy bruising Allergic/Immunologic: Denies: facial swelling, urticaria Past Medical History - Past Medical History Attestation: Yes The following information was validated with the patient. Source: patient Medical history: Reports: asthma, cancer, CHF, CVA, DVT, diabetes, hyperlipidemia, hypertension, renal disease, other Surgical history: Reports: BUD/BSO Psychiatric history: Reports: no psych history AD OPERATIONS ASSOCIATE history: Reports: no AD OPERATIONS ASSOCIATE history - Social History Smoking Status: Former smoker Smokeless Tobacco Status: No Alcohol use: Reports: none Drug use: Reports: none Physical Exam - General Limitations: no limitations General appearance: alert - Head Head exam: atraumatic, normocephalic, normal inspection - Eye Eye exam: Present: normal appearance, PERRL, EOMI. Absent: nystagmus - ENT ENT exam: mucous membranes dry - Neck Neck exam: Present: normal inspection, full ROM, trachea midline. Absent: lymphadenopathy - Chest Chest inspection: Present: normal inspection, symmetric chest wall rise - Respiratory Respiratory exam: Present: normal lung sounds bilaterally. Absent: respiratory distress, wheezes, stridor, accessory muscle use, prolonged expiratory phase - Cardiovascular Cardiovascular exam: Present: regular rate, normal rhythm, normal heart sounds - Abdominal Exam Abdominal exam: Present: soft, Non-Tender, normal bowel sounds. Absent: tenderness, distention, guarding, rebound, rigidity - Extremities Exam Extremities exam: Present: normal inspection, full ROM. Absent: tenderness, pedal edema - Neurological Exam Neurological exam: Present: alert, oriented X3 - Psychiatric Psychiatric exam: Present: normal affect, normal mood - Skin Skin exam: Present: warm, dry, intact, normal color Course Course Narrative: I have discussed this patient's case with Dr. Dandre Moreno. Dr. Dandre Moreno has had a [id number] evaluation with the patient and recommends admission to the hospitalist service for further evaluation of a delta change in her creatinine from 0.84 on October 16 to 1.40 today. The patient is in agreement with this plan. 0214: I spoke with , who accepts the patient for admission to the hospitalist service. Vital Signs Temperature 98.2 F 10/18/16 23:16 Pulse Rate 67 10/18/16 23:16 Respiratory Rate 16 10/18/16 23:16 Blood Pressure 182/75 10/18/16 23:16 O2 Sat by Pulse Oximetry 97 10/18/16 23:16 Temperature 98.2 F 10/18/16 23:16 Pulse Rate 69 10/19/16 01:10 Respiratory Rate 18 10/19/16 01:10 Blood Pressure 156/68 10/19/16 01:10 O2 Sat by Pulse Oximetry 98 10/19/16 01:10 Oxygen Delivery Oxygen Delivery Room Air Medical Decision Making - Medical Records Medical records reviewed: Yes I reviewed the patient's medical records. - Lab Data Lab results reviewed: Yes I reviewed the patient's lab results. Lab results narrative: Laboratory Last Values WBC 8.8 K/mcL (4.3-11.1) 10/19/16 00:44 RBC 4.60 M/mcL (3.82-4.97) 10/19/16 00:44 Hgb 12.4 g/dL (11.5-15.4) 10/19/16 00:44 Hct 39.1 % (35.3-44.9) 10/19/16 00:44 MCV 85.0 fL (83.0-100.0) 10/19/16 00:44 MCH 27.0 pg (28.0-33.3) L 10/19/16 00:44 MCHC 31.7 g/dL (31.6-35.5) 10/19/16 00:44 RDW 14.2 % (11.5-14.5) 10/19/16 00:44 Plt Count 211 K/mcL (140-400) 10/19/16 00:44 MPV 10.7 fL (9.4-12.4) 10/19/16 00:44 Immature Gran % 0.9 % (0-4) 10/19/16 00:44 Seg Neutrophils % 70.4 % 10/19/16 00:44 Lymphocytes % 20.3 % 04 00:44 Monocytes % 6.1 % 10/19/16 00:44 Eosinophils % 1.8 % 10/19/16 00:44 Basophils % 0.5 % 10/19/16 00:44 Neutrophils # 6.2 K/mcL (1.6-8.9) 10/19/16 00:44 Lymphocytes # 1.8 K/mcL (0.6-4.6) 10/19/16 00:44 Monocytes # 0.5 K/mcL (0.0-1.3) 10/19/16 00:44 Eosinophils # 0.2 K/mcL (0.0-0.6) 10/19/16 00:44 Basophils # 0.0 K/mcL (0.0-0.2) 10/19/16 00:44 PT 10.7 Seconds (9.4-12.1) 10/19/16 00:44 INR 1.0 10/19/16 00:44 Sodium 141 mEq/L (136-145) 10/19/16 00:44 Potassium 3.6 mEq/L (3.5-4.5) 10/19/16 00:44 Chloride 105 mEq/L (98-109) 10/19/16 00:44 Carbon Dioxide 21 mEq/L (19-29) 10/19/16 00:44 BUN 25 mg/dL (7-20) H 10/19/16 00:44 Creatinine 1.40 mg/dL (0.57-1.11) H D 10/19/16 00:44 Est GFR ( Amer) 43 (> 60) L 10/19/16 00:44 Est GFR (Non-Af Amer) 36 (> 60) L 10/19/16 00:44 BUN/Creatinine Ratio 18 (6-26) 10/19/16 00:44 Glucose 226 mg/dL (70-99) H 10/19/16 00:44 POC Glucose 205 (58-89) H 10/19/16 00:15 Calculated Osmolality 303 (280-300) H 10/19/16 00:44 Calcium 9.3 mg/dL (8.6-10.8) 10/19/16 00:44 Troponin I 0.01 ng/mL (0-0.03) 10/19/16 00:44 Urine Color Yellow (Yellow) 10/19/16 01:45 Urine Clarity Clear (Clear) 10/19/16 01:45 Urine pH 6.0 pH Units (5.0-8.0) 10/19/16 01:45 Ur Specific [place] 1.017 (1.010-1.025) 10/19/16 01:45 Urine Protein Negative mg/dL (Neg-Trace) 10/19/16 01:45 Urine Glucose (UA) 500 mg/dL (Normal) H 10/19/16 01:45 Urine Ketones Negative mg/dL (Negative) 10/19/16 01:45 Urine Blood Negative (Negative) 10/19/16 01:45 Urine Nitrite Negative (Negative) 10/19/16 01:45 Urine Bilirubin Negative (Negative) 10/19/16 01:45 Urine Urobilinogen Normal mg/dL (Normal) 10/19/16 01:45 Ur Leukocyte Esterase Negative (Negative) 10/19/16 01:45 Ur Culture Indicated? NO (NO) 10/19/16 01:45 Result diagrams: 10/19/16 00:44 10/19/16 00:44 Lab Results 10/19/16 10/19/16 10/19/16 Range/Units 00:15 00:44 00:44 WBC 8.8 (4.3-11.1) K/mcL RBC 4.60 (3.82-4.97) M/mcL Hgb 12.4 (11.5-15.4) g/dL Hct 39.1 (35.3-44.9) % MCV 85.0 (83.0-100.0) fL MCH 27.0 L (28.0-33.3) pg MCHC 31.7 (31.6-35.5) g/dL RDW 14.2 (11.5-14.5) % Plt Count 211 (140-400) K/mcL MPV 10.7 (9.4-12.4) fL Immature Gran % 0.9 (0-4) % Seg Neutrophils % 70.4 % Lymphocytes % 20.3 % Monocytes % 6.1 % Eosinophils % 1.8 % Basophils % 0.5 % Neutrophils # 6.2 (1.6-8.9) K/mcL Lymphocytes # 1.8 (0.6-4.6) K/mcL Monocytes # 0.5 (0.0-1.3) K/mcL Eosinophils # 0.2 (0.0-0.6) K/mcL Basophils # 0.0 (0.0-0.2) K/mcL PT (9.4-12.1) Seconds INR Sodium 141 (136-145) mEq/L Potassium 3.6 (3.5-4.5) mEq/L Chloride 105 (98-109) mEq/L Carbon Dioxide 21 (19-29) mEq/L BUN 25 H (7-20) mg/dL Creatinine 1.40 H D (0.57-1.11) mg/dL Est GFR ( Amer) 43 L (> 60) Est GFR (Non-Af Amer) 36 L (> 60) BUN/Creatinine Ratio 18 (6-26) Glucose 226 H (70-99) mg/dL POC Glucose 205 H (58-89) Calculated Osmolality 303 H (280-300) Calcium 9.3 (8.6-10.8) mg/dL Troponin I (0-0.03) ng/mL Urine Color (Yellow) Urine Clarity (Clear) Urine pH (5.0-8.0) pH Units Ur Specific [place] (1.010-1.025) Urine Protein (Neg-Trace) mg/dL Urine Glucose (UA) (Normal) mg/dL Urine Ketones (Negative) mg/dL Urine Blood (Negative) Urine Nitrite (Negative) Urine Bilirubin (Negative) Urine Urobilinogen (Normal) mg/dL Ur Leukocyte Esterase (Negative) Ur Culture Indicated? (NO) 10/19/16 10/19/16 10/19/16 Range/Units 00:44 00:44 01:45 WBC (4.3-11.1) K/mcL RBC (3.82-4.97) M/mcL Hgb (11.5-15.4) g/dL Hct (35.3-44.9) % MCV (83.0-100.0) fL MCH (28.0-33.3) pg MCHC (31.6-35.5) g/dL RDW (11.5-14.5) % Plt Count (140-400) K/mcL MPV (9.4-12.4) fL Immature Gran % (0-4) % Seg Neutrophils % % Lymphocytes % % Monocytes % % Eosinophils % % Basophils % % Neutrophils # (1.6-8.9) K/mcL Lymphocytes # (0.6-4.6) K/mcL Monocytes # (0.0-1.3) K/mcL Eosinophils # (0.0-0.6) K/mcL Basophils # (0.0-0.2) K/mcL PT 10.7 (9.4-12.1) Seconds INR 1.0 Sodium (136-145) mEq/L Potassium (3.5-4.5) mEq/L Chloride (98-109) mEq/L Carbon Dioxide (19-29) mEq/L BUN (7-20) mg/dL Creatinine (0.57-1.11) mg/dL Est GFR ( Amer) (> 60) Est GFR (Non-Af Amer) (> 60) BUN/Creatinine Ratio (6-26) Glucose (70-99) mg/dL POC Glucose (58-89) Calculated Osmolality (280-300) Calcium (8.6-10.8) mg/dL Troponin I 0.01 (0-0.03) ng/mL Urine Color Yellow (Yellow) Urine Clarity Clear (Clear) Urine pH 6.0 (5.0-8.0) pH Units Ur Specific [place] 1.017 (1.010-1.025) Urine Protein Negative (Neg-Trace) mg/dL Urine Glucose (UA) 500 H (Normal) mg/dL Urine Ketones Negative (Negative) mg/dL Urine Blood Negative (Negative) Urine Nitrite Negative (Negative) Urine Bilirubin Negative (Negative) Urine Urobilinogen Normal (Normal) mg/dL Ur Leukocyte Esterase Negative (Negative) Ur Culture Indicated? NO (NO) - Radiology Data Radiology results reviewed: Yes I reviewed the patient's radiology results. - EKG Data EKG #1 EKG attestation: Yes I reviewed and interpreted this EKG. EKG results narrative: EKG reviewed by Dr. Dandre Moreno as well. EKG shows a sinus bradycardia with first-degree AV block at a rate of 59 bpm. No ectopy noted. No STEMI. Attestation Statement - Attestation Attestation: I personally interviewed and examined this patient and my medical decision- making was reviewed with the [facility] [employer]. I agree with the documented findings, disposition and treatment plan as described except to the extent set forth below. Patient was discussed discharged from the hospital on Monday for her elevated blood pressure and renal insufficiency. Patient returns tonight with a similar presentation with reportedly high blood pressures at home, decreased by mouth intake. Patient with worsening renal insufficiency and dehydration. Patient had some improvement in her blood pressure here without treatment. We will recommend patient is readmitted for IV fluid hydration, review of antihypertensive medications and close blood pressure monitoring
[2016-10-19 01:04] LABS: Prothrombin Time 10.7 Seconds (9.4-12.1)
[2016-10-19 01:08] LABS: Calcium 9.3 mg/dL (8.6-10.8); Potassium 3.6 mEq/L (3.5-4.5)
[2016-10-19] MEDS ORDERED: 0.9 % Sodium Chloride 500 ML IVC ONE (01:15)
[2016-10-19 01:56] LABS: Bilirubin,Urine Negative (Negative); Blood,Urine Negative (Negative); Clarity,Urine Clear (Clear); Color,Urine Yellow (Yellow); Glucose,Urine (UA) 500 mg/dL (Normal); Ketones,Urine Negative (Negative); Leukocyte Esterase,Urine Negative (Negative); Nitrite,Urine Negative (Negative); Protein,Urine Negative (Neg-Trace); Specific Gravity,Urine 1.017 (1.010-1.025); Urobilinogen,Urine Normal (Normal)
[2016-10-19] MEDS: 0.9 % Sodium Chloride 1,000 ML IVC SCH ×3 (02:42→20:00)
[2016-10-19] MEDS ORDERED: *HR* HYDROcodone/Acet 5/325 mg TABLET PO PRN (08:30)
[2016-10-19] MEDS ORDERED: Naloxone 0.4 MG/ML INJ IVP PRN (08:30)
[2016-10-19] MEDS ORDERED: *HR* Morphine 2 MG/ML SYRINGE IVP PRN (08:30)
[2016-10-19] MEDS ORDERED: Ondansetron 4 MG/2 ML VIAL IVP PRN (08:30)
[2016-10-19] MEDS ORDERED: Acetaminophen 325 MG TABLET PO PRN (08:30)
[2016-10-19] MEDS ORDERED: D5% in Water 1,000 ML IVC PRN (08:40)
[2016-10-19] MEDS ORDERED: *HR* Dextrose 50 % in Water (Syg) 50 ML SYRINGE IVP PRN (08:40)
[2016-10-19] MEDS ORDERED: Dextrose Gel 15 GM PO PRN ×2 (08:40)
--- NOTE | 2016-10-19 08:43 | Internal Med History&Physical ---
Date of Encounter: 10/19/16 Time of Encounter: 08:43 Assessment and Plan (1) Hypertensive urgency Current visit: Yes Status: Acute Resolved Resume home meds Increase Norvasc to 10mg Hold Losartan/HCTZ Hold lasix for now (2) Acute renal insufficiency Current visit: Yes Status: Acute Suspected underlying CKD Cr on admission 1.40, baseline Cr around 1 Continue IVF at 125cc/hr Obtain Renal USS UA noted for glucosuria, no protein Avoid nephrotoxins Monitor Chem (3) Malignant neoplasm Current visit: Yes Status: Chronic Chronic, stable on chem once monthly, continue follow up with Oncology as out- patient (4) Hyperlipidemia Current visit: Yes Status: Acute Resume home meds Qualifiers: Hyperlipidemia type: unspecified Qualified Code(s): E78.5 - Hyperlipidemia , unspecified (5) Moderate aortic regurgitation Current visit: Yes Status: Acute Chronc, stable, ECHO from 10/2016 noted (6) COPD (chronic obstructive pulmonary disease) Current visit: Yes Status: Chronic No evidence of exacerbation at this time Duoneb prn Qualifiers: COPD type: chronic bronchitis Chronic bronchitis type: unspecified Qualified Code(s): J42 - Unspecified chronic bronchitis (7) HTN (hypertension) Current visit: Yes Status: Chronic Mgt as in HTN Urgency Qualifiers: Hypertension type: essential hypertension Qualified Code(s): I10 - Essential (primary) hypertension (8) Diabetes Current visit: Yes Status: Chronic A1C last checked per chart 2016 Will check A1C stat Not on any meds for DM per patient Possibly early stage kidney complication Sliding scale insulin for now FS ACHS Use of prednisone in the past few days may be contributing to her hypergltcemia ADA diet Qualifiers: Diabetes mellitus type: type 2 Diabetes mellitus complication status: without complication Diabetes mellitus intermediate card tender insulin use: without alf use Qualified Code(s): E11.9 - Type 2 diabetes mellitus without complications (9) Nasal fracture Current visit: Yes Status: Chronic Fall precautions No breathing difficulty, no pain Qualifiers: Encounter type: sequela Fracture type: closed Qualified Code(s): S02.2XXS - Fracture of nasal bones, sequela Internal Medicine - H&P: HPI Chief complaint: Dizziness Admitted From: Home Plans for Post Hospital Care: Home History of present illness: Ms. Curry is a 86 year old female with medical history of carcinoid tumor, COPD, hyperlipidemia, diabetes mellitus, hypertension. She is seen at bedside with her son Aureliano. She was recently discharged on October 16 after being managed for Syncope, associated with fall and nasal bone fracture. She also had COPD exacerbation during that admission and was discharged home on prednisone. Patient reports presenting to the ER because her blood pressure has been uncontrolled, and fingersticks have been elevated up to the 300s. She Also Reports Feeling dizzy Many Times during the Day. She Reports Polydipsia and Polyuria However She Attributes this to Taking Lasix. She Denies Cough She Denies Shortness of Breath She Denies Chest Pain She Denies Any Abdominal Symptoms. She Denies fever, Dysuria, She Denies Foamy Urine, She Denies Hematuria. She Has Not Noticed Any Decrease in Her Urine Output. She denies chest pain, she denies palpitations, she denies any neurologic symptoms She Does Not Take NSAIDs, and She Denies Any Flank Pain. She reports having had renal disease in the past that was "resolving" per her PCP. She is unaware if this was AJYNE, or CKD Past Med Surg Social Fam HX - Past Medical History Medical history: asthma, cancer, CHF, CVA, DVT, diabetes, hyperlipidemia, hypertension, renal disease, other Psychiatric history: no psych history - Past Surgical History Surgical History: BUD/BSO - Social History Smoking Status: Former smoker Smokeless Tobacco Status: No Alcohol use: none Drug use: none - Family History Mother Name: DEBBI YANCEY Living Status: Hx Family Endocrine Disorder: Yes (DM) Hx Family Neuromuscular Disorders: Yes Hx Family Neurologic Disorders: Yes Father Adopted: [place]: LARRY Perez BC Family Member Ethnicity: Non- Living Status: Age at : 70 Hx Family Cardiac Disorders: No Hx Family Respiratory Disorders: Yes (lung cancer) Hx Family Cancer: Yes (LUNG) Hx Family GI Disorders: No Hx Family Endocrine Disorder: No Hx Family Neuromuscular Disorders: No Hx Family Neurologic Disorders: No Hx Family HEENT Disorders: No Hx Family Autoimmune Disorders: No Internal Medicine - H&P: Meds Montelukast [Singulair] 10 mg PO HS tablet 08/11/15 [Rx] Albuterol Sulfate [Proair Hfa] 2 puff IH Q4H PRN 06/06/16 [History] Pantoprazole Sodium [Protonix] 40 mg PO DAILY #90 tablet. 09/30/16 [Rx] Ascorbic Acid [Vitamin C] 500 mg PO DAILY 10/14/16 [History] Potassium Chloride 10 meq PO DAILY 10/14/16 [History] Amlodipine [Norvasc] 5 mg PO DAILY #30 tablet 10/16/16 [Rx] Furosemide [Lasix] 20 mg PO DAILY #30 tablet 10/16/16 [Rx] Losartan/Hydrochlorothiazide [Hyzaar 100-12.5 Tablet] 1 each PO DAILY #30 tablet 10/16/16 [Rx] Vitamin D 10/19/16 [History] Allergies No Known Allergies Allergy (Verified 06/06/16 13:13) All Systems PM: A 10-system review of systems was performed and is negative for pertinent findings except as documented above in the HPI. - Constitutional Constitutional: no chills, no fever(s), no night sweats - EENT Eyes: no change in vision, no discharge, no pain, no photophobia Ears: no ear discharge, no ear pain, no tinnitus Nose, mouth and throat: no dysphagia, no nasal discharge, no neck pain, no sore throat - Cardiovascular Cardiovascular ROS IM: no chest pain, no diaphoresis, no dyspnea, no lightheadedness, no palpitations, no syncope - Respiratory Respiratory: no cough, no dyspnea, no wheezing, no excessive phlegm production - Gastrointestinal Gastrointestinal: no abdominal pain, no diarrhea, no hematemesis, no hematochezia, no melena, no nausea, no vomiting - Genitourinary Genitourinary: as per HPI - Musculoskeletal Musculoskeletal ROS IM: no numbness, no tingling - Integumentary Integumentary IM: no rash, no unusual bruising - Neurological Neurological ROS: no confusion, no convulsions, no focal weakness, no numbness, no tingling, no tremor(s) - Hematologic/Lymphatic Hematologic/Lymphatic: no easy bruising - Constitutional Vitals: Temp Pulse Resp BP Pulse Ox 98.8 F 68 16 154/68 95 10/19/16 06:49 10/19/16 06:49 10/19/16 06:49 10/19/16 06:49 10/19/16 07:57 General appearance: Present: A&O X 3, pleasant, no acute distress, answers questions appropriately - Head Head exam: Present: atraumatic, normocephalic - Eye Eye exam: Present: PERRL, conjuntiva pink, sclera anicteric Pupils: Present: PERRL - Neck Neck exam general surgery: Present: supple, trachea midline. Absent: lymphadenopathy - Respiratory Respiratory exam: Present: CTAB. Absent: accessory muscle use, rales, rhonchi, wheezes - Cardiovascular Cardiovascular exam: Present: RRR, +S1, +S2. Absent: diastolic murmur, gallop, rubs, systolic murmur - GI/Abdominal GI/Abdominal exam: Present: normal bowel sounds, soft, no peritoneal signs. Absent: distended, tenderness - Extremities Exam Extremities exam: Present: warm, radial pulses palpable and symetrical. Absent : calf tenderness, cyanotic, pedal edema - Back Exam Back exam: Absent: CVA tenderness (L), CVA tenderness (R) - Neurological Exam Neurological exam: Present: CN II-XII intact, oriented X3, no focal deficits. Absent: pronater drift, facial droop, speech deficit Internal Med - H&P Results - Labs CBC & Chem 7: 10/19/16 00:44 10/19/16 00:44
[2016-10-19 09:23] LABS: BUN/Creatinine Ratio 21 (6-26); Blood Urea Nitrogen 21 mg/dL (7-20); Carbon Dioxide 26 mEq/L (19-29); Chloride 109 mEq/L (98-109); Glucose 144 mg/dL (70-99); Osmolality,Calculated 302 (280-300); Potassium 4.1 mEq/L (3.5-4.5); Sodium 143 mEq/L (136-145); eGFR For African Americans > 60 (> 60); eGFR For Non-African Americans 53 (> 60)
[2016-10-19] MEDS: amLODIPine 5 MG TABLET PO SCH (09:30)
[2016-10-19] MEDS: Ascorbic Acid 500 MG TABLET PO SCH (09:31)
[2016-10-19 10:21] LABS: Hemoglobin A1C 7.1 %
[2016-10-19] MEDS: Insulin LISPRO 300 UNITS/3 ML VIAL SQ SCH ×3 (11:52→20:04)
[2016-10-20] MEDS: 0.9 % Sodium Chloride 1,000 ML IVC SCH (04:10)
[2016-10-20 05:00] LABS: Basophils # 0.1 K/mcL (0.0-0.2); Basophils % 0.6 %; Eosinophils # 0.3 K/mcL (0.0-0.6); Eosinophils % 3.5 %; Hematocrit 37.4 % (35.3-44.9); Hemoglobin 11.7 g/dL (11.5-15.4); Immature Granulocytes % 0.8 % (0-4); Lymphocytes # 1.9 K/mcL (0.6-4.6); Lymphocytes % 23.7 %; Mean Corpuscular HGB Conc 31.3 g/dL (31.6-35.5); Mean Corpuscular Hemoglobin 26.8 pg (28.0-33.3); Mean Corpuscular Volume 85.6 fL (83.0-100.0); Mean Platelet Volume 10.8 fL (9.4-12.4); Monocytes # 0.6 K/mcL (0.0-1.3); Monocytes % 7.3 %; Neutrophils # 5.1 K/mcL (1.6-8.9); Platelet Count 187 K/mcL (140-400); Red Blood Count 4.37 M/mcL (3.82-4.97); Red Cell Distribution Width 14.3 % (11.5-14.5); Segmented Neutrophils % 64.1 %
[2016-10-20 05:17] LABS: BUN/Creatinine Ratio 21 (6-26); Blood Urea Nitrogen 18 mg/dL (7-20); Calcium 8.7 mg/dL (8.6-10.8); Carbon Dioxide 23 mEq/L (19-29); Chloride 111 mEq/L (98-109); Glucose 144 mg/dL (70-99); Osmolality,Calculated 300 (280-300); Potassium 4.1 mEq/L (3.5-4.5); Sodium 143 mEq/L (136-145); eGFR For African Americans > 60 (> 60); eGFR For Non-African Americans > 60 (> 60)
--- NOTE | 2016-10-20 06:37 | Electrocardiograph Report ---
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
[2016-10-20] MEDS: Insulin LISPRO 300 UNITS/3 ML VIAL SQ SCH ×4 (07:03→21:17)
[2016-10-20] MEDS: Ascorbic Acid 500 MG TABLET PO SCH (08:56)
[2016-10-20] MEDS: amLODIPine 5 MG TABLET PO SCH (08:56)
[2016-10-20] MEDS: hydroCHLOROthiazide 25 MG TABLET PO SCH (11:31)
--- NOTE | 2016-10-20 13:28 | Internal Med Progress Note ---
Date of Encounter: 10/20/16 Time of Encounter: 09:00 - Assessment and plan (1) HTN (hypertension) Current Visit: Yes Status: Chronic Assessment and plan: /Patient has elevated BP's around 175/74. Current inpatient antihypertensive medications include Amlodipine 10mg. Review of recent clinic notes demonstrates she was supposed to add Amlodipine 2.5mg onto her home Losartan-HCTZ dose. There may have been confusion as this was not started and she had discontinued to her Lasix. Plan: - Amlodipine 10mg PO daily - Losartan 100mg - HCTZ 12.5mg daily adjust as needed. Qualifiers: Hypertension type: essential hypertension Qualified Code(s): I10 - Essential (primary) hypertension (2) Diabetes Current Visit: Yes Status: Chronic Assessment and plan: Patient is diet controlled at home. She presented with hyperglycemia and continues to have hyperglycemia yet improved compared to admission. Plan: - Continue Low dose sliding scale. May need to increase as necessary. - Consider discharge PO glucose control. Qualifiers: Diabetes mellitus type: type 2 Diabetes mellitus complication status: without complication Diabetes mellitus jail insulin use: without termite renewal inspector use Qualified Code(s): E11.9 - Type 2 diabetes mellitus without complications (3) Moderate aortic regurgitation Current Visit: Yes Status: Acute Assessment and plan: Recent Echocardiogram completed 10/16/2016. Patient currently does not appear to be symptomatic from Aortic regurgitation. (4) COPD (chronic obstructive pulmonary disease) Current Visit: Yes Status: Chronic Assessment and plan: Stable. - Resume home breathing treatments. Qualifiers: COPD type: chronic bronchitis Chronic bronchitis type: unspecified Qualified Code(s): J42 - Unspecified chronic bronchitis (5) DVT (deep venous thrombosis) Current Visit: No Status: Chronic Assessment and plan: Lovenox 40 Qam. Qualifiers: Laterality: bilateral Qualified Code(s): I82.403 - Acute embolism and thrombosis of unspecified deep veins of lower extremity, bilateral - Subjective Interval history: Mrs. Curry has been seen and evaluated at patient bedside his morning. She is awake alert and in no distress. She denies any symptoms of concern including , light headedness, dizziness, blurry vision, headaches, palpitations, chest pain , chest pressure, extremity swelling. She is unsure of why her blood pressures are so elevated. 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 The plan was discussed and she is agreeable. - Constitutional Vitals: Temp Pulse Resp BP Pulse Ox 98.3 F 63 16 151/67 96 10/20/16 10:58 10/20/16 10:58 10/20/16 10:58 10/20/16 10:58 10/20/16 10:58 General appearance: Present: A&O X 3, pleasant, no acute distress, answers questions appropriately - Head Head exam: Present: atraumatic, normocephalic - Eye Eye exam: Present: PERRL, conjuntiva pink, sclera anicteric Pupils: Present: PERRL - ENT ENT exam: Present: mucous membranes moist - Neck Neck exam general surgery: Present: supple, trachea midline. Absent: lymphadenopathy - Respiratory Respiratory exam: Present: CTAB. Absent: accessory muscle use, rales, rhonchi, wheezes - Cardiovascular Cardiovascular exam: Present: RRR, systolic murmur. Absent: diastolic murmur, gallop, rubs Additional comments: diminished S1 and S2 - GI/Abdominal GI/Abdominal exam: Present: normal bowel sounds, soft, no peritoneal signs. Absent: distended, tenderness - Extremities Exam Extremities exam: Present: warm, radial pulses palpable and symetrical. Absent : calf tenderness, cyanotic, pedal edema - Neurological Exam Neurological exam: Present: alert, oriented X3, no focal deficits, strengths equal and symetr throughout. Absent: pronater drift, facial droop, speech deficit - Psychiatric Psychiatric exam: Present: normal affect, normal mood - Skin Skin exam: Present: dry, intact Internal Medicine: Result - Labs CBC & Chem 7: 10/20/16 04:16 10/20/16 04:16 Labs: Short CBC 10/20/16 Range/Units 04:16 WBC 8.0 (4.3-11.1) K/mcL Hgb 11.7 (11.5-15.4) g/dL Hct 37.4 (35.3-44.9) % Plt Count 187 (140-400) K/mcL Neutrophils # 5.1 (1.6-8.9) K/mcL BMP 10/20/16 04:16 Sodium 143 Potassium 4.1 Chloride 111 H Carbon Dioxide 23 BUN 18 Creatinine 0.87 Glucose 144 H Calcium 8.7 - ABG Interpretation ABG results: PT/INR, D-dimer PT 10.7 Seconds (9.4-12.1) 10/19/16 00:44 - Impressions Impressions Retroperitoneum Ultrasound 10/19/16 16:00 IMPRESSION: 1. Normal renal ultrasound. 2. Moderate postvoid residual with some debris in the bladder which may represent concentrated urine or hemorrhage. No mucosal lesions. 3. Cholelithiasis. D/ / Fco Balderrama MD / Fco Balderrama MD Interpreting Provider: Fco Balderrama MD - VTE Documentation of Mechanical Device: Intermittent pneumatic compression device Consult Discharge Plan - Plan Referrals: Antwan Tucker Jr, MD [Primary Care Provider] -
[2016-10-21 05:19] LABS: Basophils % 0.5 %; Eosinophils # 0.2 K/mcL (0.0-0.6); Eosinophils % 2.9 %; Hematocrit 39.4 % (35.3-44.9); Hemoglobin 12.5 g/dL (11.5-15.4); Immature Granulocytes % 0.8 % (0-4); Lymphocytes # 1.9 K/mcL (0.6-4.6); Lymphocytes % 23.5 %; Mean Corpuscular HGB Conc 31.7 g/dL (31.6-35.5); Mean Corpuscular Hemoglobin 26.7 pg (28.0-33.3); Mean Corpuscular Volume 84.2 fL (83.0-100.0); Mean Platelet Volume 10.2 fL (9.4-12.4); Monocytes # 0.6 K/mcL (0.0-1.3); Monocytes % 7.3 %; Neutrophils # 5.2 K/mcL (1.6-8.9); Platelet Count 197 K/mcL (140-400); Red Blood Count 4.68 M/mcL (3.82-4.97); Red Cell Distribution Width 14.3 % (11.5-14.5)
[2016-10-21 05:52] LABS: Alanine Aminotransferase 15 Units/L (0-55); Albumin 3.3 g/dL (3.5-5.0); Alkaline Phosphatase 55 Units/L (38-126); Aspartate Amino Transferase 17 Units/L (5-34); BUN/Creatinine Ratio 19 (6-26); Bilirubin,Total 0.6 mg/dL (0.2-1.2); Blood Urea Nitrogen 19 mg/dL (7-20); Calcium 9.3 mg/dL (8.6-10.8); Carbon Dioxide 23 mEq/L (19-29); Chloride 107 mEq/L (98-109); Globulin 3.2 g/dL (2.4-3.5); Glucose 135 mg/dL (70-99); Osmolality,Calculated 298 (280-300); Potassium 4.3 mEq/L (3.5-4.5); Sodium 142 mEq/L (136-145); Total Protein 6.5 g/dL (6.0-8.3); eGFR For African Americans > 60 (> 60); eGFR For Non-African Americans 54 (> 60)
[2016-10-21] MEDS ORDERED: *HR* Enoxaparin 40 MG/0.4 ML SYRINGE SQ SCH (06:00)
[2016-10-21] MEDS: Insulin LISPRO 300 UNITS/3 ML VIAL SQ SCH ×2 (07:51→11:42)
[2016-10-21] MEDS: hydroCHLOROthiazide 25 MG TABLET PO SCH (08:10)
[2016-10-21] MEDS: amLODIPine 5 MG TABLET PO SCH (08:10)
[2016-10-21] MEDS: Ascorbic Acid 500 MG TABLET PO SCH (08:10)
[2016-10-21 12:50] VITALS: BP 146/65
--- NOTE | 2016-10-21 14:29 | Discharge Summary ---
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 insulin use: without terminal gauger supervisor use Qualified Code(s): E11.9 - Type 2 diabetes mellitus without complications (3) Moderate aortic regurgitation Priority: Secondary Status: Acute (4) Hypertensive urgency Priority: Primary Status: Acute (5) COPD (chronic obstructive pulmonary disease) Priority: Secondary Status: Chronic Qualifiers: COPD type: chronic bronchitis Chronic bronchitis type: unspecified Qualified Code(s): J42 - Unspecified chronic bronchitis - Discharge Medications Prescriptions: Amlodipine [Norvasc] 5 mg PO DAILY #14 tablet Home Medications: Montelukast [Singulair] 10 mg PO HS tablet 08/11/15 [Rx] Albuterol Sulfate [Proair Hfa] 2 puff IH Q4H PRN 06/06/16 [History] Pantoprazole Sodium [Protonix] 40 mg PO DAILY #90 tablet. 09/30/16 [Rx] Ascorbic Acid [Vitamin C] 500 mg PO DAILY 10/14/16 [History] Potassium Chloride 10 meq PO DAILY 10/14/16 [History] Losartan/Hydrochlorothiazide [Hyzaar 100-12.5 Tablet] 1 each PO DAILY #30 tablet 10/16/16 [Rx] Albuterol Neb [Proventil Neb] 2.5 mg IH Q4H PRN 10/19/16 [History] Budesonide/Formoterol 160/4.5 [Symbicort 160/4.5] 2 puff IH BIDR 10/19/16 [ History] Amlodipine [Norvasc] 5 mg PO DAILY #14 tablet 10/21/16 [Rx] Allergies/Adverse Reactions: Allergies No Known Allergies Allergy (Verified 06/06/16 13:13) Date of admission: 10/21/16 09:48 Primary care physician: Antwan Tucker Jr, MD Discharging clinician: Denis Quintanilla Anticipated date of discharge: 10/21/16 - Patient Status Disposition: Home, Self-Care Condition: Fair Functional capacity at discharge: independent ambulation Overall status at discharge: patient is progressing back to baseline - Discharge Instructions Follow Up With: Antwan Tucker Jr, MD [Primary Care Provider] - 10/25/16 1:00 pm Additional Instructions: I recommend follow-up with her primary care physician in next 3-5 days. Take medications as prescribed. Study yourself prior to standing. If you feel dizzy or lightheaded sit down immediately. He develop any reoccurring or new medical symptoms signs or concerns return to the emergency department for further evaluation or contact your primary care physician. - Diet and Activity Activity: increase activity as tolerated Diet: advance to your usual diet Interval History: Ms. Curry is a 86 year old female with medical history of carcinoid tumor, COPD, hyperlipidemia, diabetes mellitus, hypertension presents to the emergency department on 10/19/2016 for elevated glucose levels around 300 and uncontrolled elevated blood pressure with a systolic around 200. She was found to have a blood pressure 185/85, acute kidney injury and hyperglycemia. She is admitted to general medical floor placed on telemetry. Upon admission she was started on amlodipine 10 mg and NS at 125cc/hr. on admission her blood pressures improved after initial treatment. During her inpatient stay her outpatient clinic records were reviewed. She was continued on Hyzaar 100-12.5 and amlodipine 10 mg by mouth, her blood pressures improved and remained stable around 136/80 to 145/64. Her acute kidney injury resolved on day 2 of her inpatient stay and IV fluids were discontinued. She remains stable and deemed stable for discharge on 10/21/2016 with recommendations for close follow-up with her primary care physician. At the time of discharge she was discharged with a prescription of amlodipine 5 mg sent to her pharmacy. Prescription instructions were discussed with the patient. Discharge medication list updated. She was sent with a reduced dose for the prevention of hypotension upon discharge. Safety instructions regarding ambulating with reduce blood pressure, were discussed with the patient. She was highly recommended to follow up with her primary care physician for reevaluation of blood pressure and consideration of adjustment to her amlodipine dose. Imaging studies of importance completed during inpatient stay include retroperitoneal ultrasound and cholelithiasis. Hospital course: Ms. Curry is a 86 year old female - Time Spent with Patient Total time spent providing and/or coordinating discharge services: - Constitutional Vitals: Temp Pulse Resp BP Pulse Ox 97.2 F L 61 16 146/65 98 10/21/16 12:49 10/21/16 12:49 10/21/16 12:49 10/21/16 12:49 10/21/16 12:49 General appearance: Present: A&O X 3, pleasant, no acute distress, answers questions appropriately - Head Head exam: Present: atraumatic, normocephalic - Eye Eye exam: Present: PERRL, conjuntiva pink, sclera anicteric Pupils: Present: PERRL - ENT ENT exam: Present: mucous membranes moist - Neck Neck exam general surgery: Present: supple, trachea midline. Absent: lymphadenopathy - Respiratory Respiratory exam: Present: CTAB. Absent: accessory muscle use, rales, rhonchi, wheezes - Cardiovascular Cardiovascular exam: Present: RRR, +S1, +S2. Absent: diastolic murmur, gallop, rubs, systolic murmur - GI/Abdominal GI/Abdominal exam: Present: normal bowel sounds, soft, no peritoneal signs. Absent: distended, tenderness - Extremities Exam Extremities exam: Present: warm, radial pulses palpable and symetrical. Absent : calf tenderness, cyanotic, pedal edema - Neurological Exam Neurological exam: Present: alert, oriented X3, no focal deficits. Absent: pronater drift, facial droop, speech deficit - Psychiatric Psychiatric exam: Present: normal affect, normal mood - VTE Reasons for not Prescribing Prophylaxis: Treatment not Indicated - Low risk for VTE Documentation of Mechanical Device: Intermittent pneumatic compression device <Teodoro Chou - Last Filed: 10/22/16 07:53> Date of Encounter: 10/21/16 Time of Encounter: 09:05 Date of admission: 10/21/16 09:48 Primary care physician: Antwan Tucker Jr, MD Hospital course: Ms. Curry is a 86 year old female - Time Spent with Patient Total time spent providing and/or coordinating discharge services: - Constitutional Vitals: Temp Pulse Resp BP Pulse Ox 97.2 F L 61 16 146/65 98 10/21/16 12:49 10/21/16 12:49 10/21/16 12:49 10/21/16 12:49 10/21/16 12:49 - Attending Attestation I did see the patient and agree with the Residents findings.
== END 2016-10-21 15:56 | disposition home or self-care (01) | DRG 305 ==
LOC: EMEROO 23:15 → 3NENU 23:15
PROVIDERS: ADMIT Internal Medicine; ATTEND Internal Medicine

== ENCOUNTER 2018-02-20 14:19 | Inpatient (IN) ==
[2018-02-20] MEDS ORDERED: 0.9 % Sodium Chloride 1,000 ML IVC ONE (14:33)
--- NOTE | 2018-02-20 14:37 | Emergency Department Note ---
Disposition Clinical Impression: TIA (transient ischemic attack) Disposition: Admitted As Inpatient Condition: Good Referrals: Antwan Tucker Jr, MD [Primary Care Provider] - General Adult HPI - General Stated complaint: GUERA, R sided numbness Time Seen by Provider: 02/20/18 14:33 Source: patient Mode of arrival: ambulatory Limitations: no limitations Nursing Notes Reviewed: Yes Vital Signs Reviewed: Yes - History of Present Illness HPI Narrative: Patient presents to the emergency department today for evaluation of right- sided numbness and decreased strength. Right arm and right leg. Symptom onset was 1220. Not on anticoagulation. On exam the patient does have noticeable sensation and strength deficits to the right arm and leg despite being right handed dominant. Stroke alert activated. We will discuss with [facility] in regards to further management. - Related Data Home Medications Medication Instructions Recorded Confirmed Ascorbic Acid [Vitamin C] 500 mg PO DAILY 10/14/16 02/20/18 Cholecalciferol (D-3) [Vitamin D] 1,000 unit PO DAILY 12/30/16 02/20/18 Potassium Chloride [K-Tab ER] 10 meq PO DAILY 03/31/17 02/20/18 Aspirin Enteric Coated [Aspirin EC] 325 mg PO DAILY 02/20/18 02/20/18 Ferrous Sulfate [Iron] 325 mg PO DAILY 02/20/18 02/20/18 Furosemide [Lasix] 40 mg PO DAILY 02/20/18 02/20/18 Montelukast [Singulair] 10 mg PO DAILY 02/20/18 02/20/18 Pantoprazole Sodium [Protonix] 20 mg PO DAILY 02/20/18 02/20/18 Promethazine [Phenergan] 12.5 mg PO DAILY 02/20/18 02/20/18 glipiZIDE [Glucotrol] 5 mg PO DAILY 02/20/18 02/20/18 hydrOXYzine HCl [Hydroxyzine HCl] 25 mg PO DAILY PRN 02/20/18 02/20/18 predniSONE [PredniSONE] 10 mg PO DAILY PRN 02/20/18 02/20/18 Previous Rx's Medication Instructions Recorded Losartan/Hydrochlorothiazide 1 each PO DAILY #30 tablet 10/16/16 [Hyzaar 100-12.5 Tablet] Allergies Allergy/AdvReac Type Severity Reaction Status Date / Time No Known Allergies Allergy Verified 11/14/17 09:19 Review of Systems: CONSTITUTIONAL: No weight loss, fever, chills, weakness or fatigue. HEENT: Eyes: No visual changes. Ears, Nose, Throat: No hearing loss, difficulty talking or unable to swallow. SKIN: No rash or itching. CARDIOVASCULAR: No chest pain, chest pressure or chest discomfort. No palpitations or edema. RESPIRATORY: No shortness of breath, cough or sputum. GASTROINTESTINAL: No anorexia, nausea, vomiting or diarrhea. No abdominal pain or blood. GENITOURINARY: No burning on urination or hematuria. NEUROLOGICAL: Right-sided numbness and decreased strength to the right arm and leg. No headache, dizziness, syncope, paralysis No change in bowel or bladder control. MUSCULOSKELETAL: No muscle pain, back pain, joint pain or stiffness. Past Medical History - Past Medical History Medical history: Reports: asthma, cancer, CHF, CVA, DVT, diabetes, hyperlipidemia, hypertension, renal disease, other Surgical history: Reports: BUD/BSO Psychiatric history: Reports: no psych history SUBWAREHOUSE SUPERVISOR history: Reports: no SUBWAREHOUSE SUPERVISOR history - Social History Smoking Status: Never smoker Smokeless Tobacco Status: No Alcohol use: Reports: none Drug use: Reports: none Physical Exam General: Well appearing, nontoxic, no acute distress Head: Normocephalic Atraumatic Eyes: PERRL, EOMI ENT: Airway patent, no stridor Neck: supple, no meningismus Chest: Lungs clear to auscultation bilateral Cardiac: Regular rate and rhythm, no murmurs, rubs or gallops Abdomen: soft, nontender, nondistended; no guarding, rebound, or tenderness to percussion Musculoskeletal: Calves symmetric, nontender, no palpable cord Skin: No rash, normal skin tone Neuro: Alert and Oriented to person, place, and time; No focal deficit, CN 2-12 symmetric and intact; paresthesias to the right arm and right leg with associated weakness compared to the left. Abnormal finger to nose and heel to [place] on the right side secondary to decreased strength. - Expanded Neurological Exam Patient oriented to: Present: person, place, time Speech: Present: fluid speech Cranial nerves: EOM function (II, III, IV, ): Normal, facial sensation (V): Normal, facial palsy (VII): Normal, gag reflex (IX): Normal, spinal accessory function (XI): Normal, tongue deviation (XII): Normal Cerebellar function: finger to nose: Abnormal Right, heel to [place]: Abnormal Right Motor strength - RUE: 4/5 Motor strength - RLE: 4/5 Sensory exam upper extremity: light touch: Abnormal Right Sensory exam lower extremity: light touch: Abnormal Right Coma Scale Eye Opening: Spontaneous Coma Scale Motor Response: Obeys Commands Coma Scale Verbal Response: Oriented Coma Scale Total: 15 Course - Reevaluation(s) Reevaluation #1: Symptoms resolved on reexamination after approximately 40 minutes. Patient will be admitted for further stroke rule out. - Consultations Consultation #1: [facility] neurology did respond on the tele stroke unit. At this time the patient's symptoms have completely resolved. She has no paresthesias or weakness. Son now notices some mild right-sided facial droop at rest but resolves with smiling. At this time the patient is not a candidate for TPA secondary to no symptoms. Patient will be admitted for further workup of stroke versus TIA versus other. Consultation #2: Discussed with hospitalist. Patient accepted for admission. Vital Signs Temperature 98.4 F 02/20/18 14:30 Pulse Rate 64 02/20/18 14:30 Respiratory Rate 16 02/20/18 14:30 Blood Pressure 207/86 02/20/18 14:30 O2 Sat by Pulse Oximetry 96 02/20/18 14:30 Temperature 98.4 F 02/20/18 14:30 Pulse Rate 52 02/20/18 16:34 Respiratory Rate 16 02/20/18 16:34 Blood Pressure 184/71 02/20/18 16:34 O2 Sat by Pulse Oximetry 94 02/20/18 16:34 Oxygen Delivery Oxygen Delivery Room Air Medical Decision Making - Medical Records Medical records reviewed: Yes I reviewed the patient's medical records. - Lab Data Lab results reviewed: Yes I reviewed the patient's lab results. Result diagrams: 02/20/18 14:35 02/20/18 14:35 Lab Results 02/20/18 02/20/18 02/20/18 Range/Units 14:35 14:35 14:36 WBC 7.6 (4.3-11.1) K/mcL RBC 4.96 (3.82-4.97) M/mcL Hgb 12.8 (11.5-15.4) g/dL Hct 39.9 (35.3-44.9) % MCV 80.4 L (83.0-100.0) fL MCH 25.8 L (28.0-33.3) pg MCHC 32.1 (31.6-35.5) g/dL RDW 15.6 H (11.5-14.5) % Plt Count 256 (140-400) K/mcL MPV 10.8 (9.4-12.4) fL Immature Gran % 0.5 (0-4) % Seg Neutrophils % 63.4 % Lymphocytes % 26.7 % Monocytes % 6.8 % Eosinophils % 2.2 % Basophils % 0.4 % Neutrophils # 4.8 (1.6-8.9) K/mcL Lymphocytes # 2.0 (0.6-4.6) K/mcL Monocytes # 0.5 (0.0-1.3) K/mcL Eosinophils # 0.2 (0.0-0.6) K/mcL Basophils # 0.0 (0.0-0.2) K/mcL PT 11.3 (9.4-12.1) Seconds INR 1.0 APTT 27.3 (26.0-36.0) Seconds Sodium 141 (136-145) mEq/L Potassium 3.6 (3.5-5.1) mEq/L Chloride 104 (98-107) mEq/L Carbon Dioxide 28 (23-29) mEq/L BUN 25 H (8-23) mg/dL Creatinine 1.10 (0.60-1.20) mg/dL Est GFR ( Amer) 57 L (> 60) Est GFR (Non-Af Amer) 47 L (> 60) BUN/Creatinine Ratio 23 (6-26) Glucose 100 (70-105) mg/dL Calculated Osmolality 296 (280-300) Calcium 9.8 (8.6-10.3) mg/dL Troponin I < 0.03 (< 0.04) ng/mL - Radiology Data Radiology results reviewed: Yes I reviewed the patient's radiology results. - EKG Data EKG #1 EKG attestation: Yes I reviewed and interpreted this EKG. EKG results narrative: EKG shows sinus rhythm with ventricular rate of 63. SD interval 246. QRS 91. QTC 420. Patient has no significant ST elevations or depressions. No previous EKG for comparison.
[2018-02-20 14:44] LABS: Basophils % 0.4 %; Eosinophils # 0.2 K/mcL (0.0-0.6); Eosinophils % 2.2 %; Hematocrit 39.9 % (35.3-44.9); Hemoglobin 12.8 g/dL (11.5-15.4); Immature Granulocytes % 0.5 % (0-4); Lymphocytes % 26.7 %; Mean Corpuscular HGB Conc 32.1 g/dL (31.6-35.5); Mean Corpuscular Hemoglobin 25.8 pg (28.0-33.3); Mean Corpuscular Volume 80.4 fL (83.0-100.0); Mean Platelet Volume 10.8 fL (9.4-12.4); Monocytes # 0.5 K/mcL (0.0-1.3); Monocytes % 6.8 %; Neutrophils # 4.8 K/mcL (1.6-8.9); Platelet Count 256 K/mcL (140-400); Red Blood Count 4.96 M/mcL (3.82-4.97); Red Cell Distribution Width 15.6 % (11.5-14.5); Segmented Neutrophils % 63.4 %
[2018-02-20 14:48] LABS: Prothrombin Time 11.3 Seconds (9.4-12.1)
[2018-02-20 14:51] LABS: Activated Partial Thrombo Time 27.3 Seconds (26.0-36.0)
[2018-02-20 15:03] LABS: Troponin I < 0.03 ng/mL (< 0.04)
[2018-02-20 15:27] LABS: BUN/Creatinine Ratio 23 (6-26); Blood Urea Nitrogen 25 mg/dL (8-23); Calcium 9.8 mg/dL (8.6-10.3); Carbon Dioxide 28 mEq/L (23-29); Chloride 104 mEq/L (98-107); Glucose 100 mg/dL (70-105); Osmolality,Calculated 296 (280-300); Potassium 3.6 mEq/L (3.5-5.1); Sodium 141 mEq/L (136-145); eGFR For Non-African Americans 47 (> 60)
[2018-02-20] MEDS ORDERED: Acetaminophen 325 MG TABLET PO PRN (17:24)
[2018-02-20] MEDS ORDERED: hydrOXYzine pamoate 25 MG CAPSULE PO PRN (17:27)
--- NOTE | 2018-02-20 17:47 | Internal Med History&Physical ---
Date of Encounter: 02/20/18 Time of Encounter: 17:40 Internal Medicine - H&P: HPI Chief complaint: Right-sided weakness and numbness Admitted From: Home Plans for Post Hospital Care: Home History of present illness: Ms. Curry is a 87 year old female with past medical history of diabetes, hypertension, chronic kidney disease, congestive heart failure, and abdominal carcinoid who presents to [facility] with acute onset of right-sided weakness and numbness. Patient states that this occurred around 12: 20 PM today however she later states that this could have been going on prior to that but it definitely got worse at that time. Patient was immediately taken to CAT scan for head CT which revealed no acute abnormalities. In the emergency department the patient had near complete resolution of her symptoms. Upon evaluation with [facility] tele stroke unit the patient's symptoms had resolved and therefore was not a candidate for TPA. The patient upon evaluation states that she has some mild numbness and tingliness over her right pinky finger and is unsure if this sesation is related to what she experienced earlier today or if this was there prior to this episode. Patient states she has never had a CVA before but does have a history of hypertension and diabetes mellitus type 2 with remote smoking history. Patient is on full dose aspirin at home. Patient had previously been on warfarin and Lovenox for bilateral lower extremity DVT per patient and son; however the patient experienced persistent anemia of unknown origin which required multiple iron transfusions and the patient subsequently had an IVC filter placed. Patient denies any previous recent illnesses, headache, blurry vision, double vision, neck pain, neck stiffness. Also denies any chest pain, shortness breath , nausea, vomiting, diarrhea, fever. Due to the patient's persistence of right 5th finger numbness and tingling the patient will be admitted for further workup for CVA versus TIA. Spoke at length with patient who previously had a DNR however the patient wishes to be full code currently in the setting of an acute event, son is POA. Past Med Surg Social Fam HX - Past Medical History Medical history: asthma, cancer, CHF, CVA, DVT, diabetes, hyperlipidemia, hypertension, renal disease, other Additional medical history: [place] Filter Psychiatric history: no psych history - Past Surgical History Surgical History: BUD/BSO Additional surgical history: shoulder surgery, roman filter, back surgery - Social History Smoking Status: Never smoker Smokeless Tobacco Status: No Alcohol use: none Drug use: none - Family History Mother Living Status: Hx Family Endocrine Disorder: Yes (DM) Hx Family Neuromuscular Disorders: Yes Hx Family Neurologic Disorders: Yes Father Adopted: No Family Member Ethnicity: Non- Living Status: Hx Family Cardiac Disorders: No Hx Family Respiratory Disorders: Yes (lung cancer) Hx Family Cancer: Yes (LUNG) Hx Family GI Disorders: No Hx Family Endocrine Disorder: No Hx Family Neuromuscular Disorders: No Hx Family Neurologic Disorders: No Hx Family HEENT Disorders: No Hx Family Autoimmune Disorders: No Internal Medicine - H&P: Meds Ascorbic Acid [Vitamin C] 500 mg PO DAILY 10/14/16 [History] Losartan/Hydrochlorothiazide [Hyzaar 100-12.5 Tablet] 1 each PO DAILY #30 tablet 10/16/16 [Rx] Cholecalciferol (D-3) [Vitamin D] 1,000 unit PO DAILY 12/30/16 [History] Potassium Chloride [K-Tab ER] 10 meq PO DAILY 03/31/17 [History] Aspirin Enteric Coated [Aspirin EC] 325 mg PO DAILY 02/20/18 [History] Ferrous Sulfate [Iron] 325 mg PO DAILY 02/20/18 [History] Furosemide [Lasix] 40 mg PO DAILY 02/20/18 [History] Montelukast [Singulair] 10 mg PO DAILY 02/20/18 [History] Pantoprazole Sodium [Protonix] 20 mg PO DAILY 02/20/18 [History] Promethazine [Phenergan] 12.5 mg PO DAILY 02/20/18 [History] glipiZIDE [Glucotrol] 5 mg PO DAILY 02/20/18 [History] hydrOXYzine HCl [Hydroxyzine HCl] 25 mg PO DAILY PRN 02/20/18 [History] predniSONE [PredniSONE] 10 mg PO DAILY PRN 02/20/18 [History] 3 Allergy/AdvReac Type Severity Reaction Status Date / Time No Known Allergies Allergy Verified 11/14/17 09:19 All Systems PM: A 10-system review of systems was performed and is negative for pertinent findings except as documented above in the HPI. Review of systems: 10 point review of systemswas obtained and is otherwise negative other than described in history of present illness - Constitutional Vitals: Temp Pulse Resp BP Pulse Ox 98.4 F 57 16 211/85 98 02/20/18 14:30 02/20/18 17:11 02/20/18 17:11 02/20/18 17:11 02/20/18 17:11 Exam: Constitutional: No acute distress, Alert Psych: AAO x 3 HEENT: NCAT, EOMI Neck: supple, no JVD Cardio: regular rate and rhythm, +s1s2, no murmurs/rubs/gallops, no JVD Resp: clear to ascultation bilaterally, no wheezes/rales/ronchi Abd: soft, non tender/non distended, positive bowel sounds, no gaurding/reboud/ ridgitity Extremities: no clubbing/cyanosis/edema appreciated Neuro: no focal deficits appreciated; patient describes numbness of right fifth finger however states this she can feel normal sensation when I palpate this area; patient has 5 out of 5 motor strength in all extremities; cranial nerves II through XII are grossly intact; no sensory deficits appreciated currently; no facial droop Lymph: no cervical/supraclavicular adenopahty apprecitated Internal Med - H&P Results - Labs CBC & Chem 7: 02/20/18 14:35 02/20/18 14:35 - Assessment and plan (1) Acute CVA (cerebrovascular accident) Current Visit: Yes Status: Acute Assessment and plan: Patient with acute onset of right sided numbness and weakness that resolved after several hours -However the patient has an abnormal sensation in her right fifth finger which makes it hard to exclude CVA -Patient has risk factors of diabetes and hypertension -Not TPA candidate secondary to resolution of symptoms/near resolution of symptoms and previous GI bleed; evaluated by [facility] tele stroke unit -Neuro checks -We will order MRI of head -CT of brain was negative for any acute process -We will order ultrasound carotids -EKG revealed sinus rhythm -We will consult neurology for evaluation -Check lipid panel and hemoglobin A1c -We will allow permissive hypertension up to 220/115 for 24 hours then resume antihypertensives -Likely resume aspirin in a.m. versus changing to Plavix, we will discuss with neurology -Can start subcutaneous heparin in 24 hours (2) TIA (transient ischemic attack) Current Visit: Yes Status: Acute Assessment and plan: Please see above -We will order lipid panel, MRI of brain, carotid ultrasound (3) CKD (chronic kidney disease) Current Visit: Yes Status: Acute Assessment and plan: Patient with chronic kidney disease stage II likely secondary to hypertension versus diabetes -Baseline serum creatinine between 1.0 and 1.4 -[place] at baseline, will monitor Qualifiers: Chronic kidney disease stage: stage 2 (mild) Qualified Code(s): N18.2 - Chronic kidney disease, stage 2 (mild) (4) History of GI bleed Current Visit: No Status: Acute Assessment and plan: Patient with history of GI bleed per family and patient requiring frequent IV iron infusions and was unable to determine etiology -She was unable to tolerate anticoagulation due to this and has an IVC filter for history of bilateral lower extremity DVTs (5) Diabetes Current Visit: Yes Status: Chronic Assessment and plan: Start low-dose sliding scale -Monitor blood glucose -Adjust accordingly -On glipizide at home Qualifiers: Diabetes mellitus type: type 2 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: without senior living use Diabetes mellitus complication status: without complication Qualified Code(s): E11.9 - Type 2 diabetes mellitus without complications (6) HTN (hypertension) Current Visit: Yes Status: Chronic Assessment and plan: Patient with history of essential hypertension -We will hold antihypertensives for 24 hours secondary to possible CVA -We will resume after 24 hours -Permissive hypertension up to 220/115 Qualifiers: Hypertension type: essential hypertension Qualified Code(s): I10 - Essential (primary) hypertension (7) Metastatic carcinoid tumor Current Visit: Yes Status: Chronic Assessment and plan: Chronic history of carcinoid in abdomen patient takes somatostatin injections once monthly - Time Spent With Patient Total time spent is greater than 50% in coordination of care (as documented) at patient's floor/unit and/or counseling patient: 25 - 35 minutes
[2018-02-20] MEDS ORDERED: *HR* Dextrose 50 % in Water (Syg) 50 ML SYRINGE IVP PRN (18:24)
[2018-02-20] MEDS ORDERED: Dextrose Gel 15 GM/37.5 ML TUBE PO PRN ×2 (18:24)
[2018-02-20] MEDS ORDERED: D5% in Water 1,000 ML IVC PRN (18:24)
[2018-02-20] MEDS: Insulin LISPRO 300 UNITS/3 ML VIAL SQ SCH (21:50)
[2018-02-21 05:53] LABS: Basophils % 0.3 %; Eosinophils # 0.3 K/mcL (0.0-0.6); Eosinophils % 3.8 %; Hematocrit 37.1 % (35.3-44.9); Hemoglobin 11.7 g/dL (11.5-15.4); Immature Granulocytes % 0.5 % (0-4); Lymphocytes # 1.9 K/mcL (0.6-4.6); Lymphocytes % 28.1 %; Mean Corpuscular HGB Conc 31.5 g/dL (31.6-35.5); Mean Corpuscular Hemoglobin 25.4 pg (28.0-33.3); Mean Corpuscular Volume 80.7 fL (83.0-100.0); Mean Platelet Volume 10.5 fL (9.4-12.4); Monocytes # 0.6 K/mcL (0.0-1.3); Neutrophils # 3.9 K/mcL (1.6-8.9); Platelet Count 216 K/mcL (140-400); Red Cell Distribution Width 15.7 % (11.5-14.5); Segmented Neutrophils % 58.3 %
[2018-02-21 05:58] LABS: Prothrombin Time 11.7 Seconds (9.4-12.1)
[2018-02-21 06:14] LABS: Alanine Aminotransferase 11 Units/L (7-52); Albumin 3.9 g/dL (3.5-5.7); Albumin/Globulin Ratio 1.6 (1.1-2.2); Alkaline Phosphatase 58 Units/L (34-104); Aspartate Amino Transferase 15 Units/L (13-39); BUN/Creatinine Ratio 24 (6-26); Bilirubin,Total 0.5 mg/dL (0.3-1.0); Blood Urea Nitrogen 25 mg/dL (8-23); Calcium 9.4 mg/dL (8.6-10.3); Carbon Dioxide 29 mEq/L (23-29); Chloride 106 mEq/L (98-107); Chol/HDL Ratio 6.3 (0-4.9); Cholesterol 264 mg/dL (< 200); Globulin 2.4 g/dL (2.4-3.5); Glucose 123 mg/dL (70-105); HDL Cholesterol 42 mg/dL (40-59); LDL Cholesterol,Calculated 183 mg/dL (0-99); Osmolality,Calculated 300 (280-300); Potassium 3.4 mEq/L (3.5-5.1); Sodium 142 mEq/L (136-145); Total Protein 6.3 g/dL (6.4-8.9); Triglycerides 196 mg/dL (< 150); eGFR For Non-African Americans 51 (> 60)
[2018-02-21 06:46] LABS: Estimated Average Glucose 148 mg/dl; Hemoglobin A1C 6.8 %
[2018-02-21] MEDS: Insulin LISPRO 300 UNITS/3 ML VIAL SQ SCH ×4 (09:59→20:44)
[2018-02-21] MEDS: Cholecalciferol (D-3) 1,000 UNIT TABLET PO SCH (09:59)
[2018-02-21] MEDS: Ascorbic Acid 500 MG TABLET PO SCH (10:00)
--- NOTE | 2018-02-21 11:52 | Internal Med Progress Note ---
Hospitalist Progress Note - Encounter Date of Encounter: 02/21/18 Time of Encounter: 11:48 - Subjective Interval History: Patient seen and examined at bedside. Patient had no overnight acute events. Patient states she feels normal and well. Patient denies any chest pain, shortness breath, nausea, vomiting, diarrhea. Patient afebrile. Patient states that she has had complete resolution of all her symptoms now and is no longer experiencing the right fifth finger numbness and tingling that she was experiencing yesterday when I evaluated her. Awaiting neurology evaluation. Patient had MRI done this morning. - Exam Vitals: Temp Pulse Resp BP Pulse Ox 97.8 F 55 16 183/52 96 02/21/18 07:18 02/21/18 07:18 02/21/18 07:18 02/21/18 07:18 02/21/18 07:18 Exam: Constitutional: No acute distress, Alert Psych: AAO x 3 HEENT: NCAT, EOMI Neck: supple, no JVD Cardio: regular rate and rhythm, +s1s2, no murmurs/rubs/gallops, no JVD Resp: clear to ascultation bilaterally, no wheezes/rales/ronchi Abd: soft, non tender/non distended, positive bowel sounds, no gaurding/reboud/ ridgitity Extremities: no clubbing/cyanosis/edema appreciated Neuro: no focal deficits appreciated; there is no sensory deficits appreciated; 5 out of 5 muscle strength in all groups. CN2-12 are grossly intact. There is no facial droop. Lymph: no cervical/supraclavicular adenopahty apprecitated - Assessment and Plan (1) Acute CVA (cerebrovascular accident) Current Visit: Yes Status: Acute Assessment and Plan: Patient with acute onset of right sided numbness and weakness that resolved after several hours -However the patient has an abnormal sensation in her right fifth finger which makes it hard to exclude CVA -MRI shows questionable right posterior frontal lobe punctate infarct and unchanged extra-axial mass in right parietal convexity with minimal local mass effect on the adjacent right cerebral hemisphere; however pt with right sided deficits so these findings dont seem to support the clinical findings; however the pt has complete resolution of all symptoms today. -Patient has risk factors of diabetes and hypertension -Not TPA candidate secondary to resolution of symptoms/near resolution of symptoms and previous GI bleed; evaluated by [facility] tele stroke unit -Neuro checks -CT of brain was negative for any acute process -Ultrasound carotids pending -EKG revealed sinus rhythm -Lipid panel with significant hyperlipidemia; was not previously on statin started atorvastatin 10 mg yesterday we will increase to 20 mg today -hemoglobin A1c 6.8 and unchanged from prior -We will allow permissive hypertension up to 220/115 for 24 hours then resume antihypertensives (1230pm today) -will resume aspirin in a.m. versus changing to Plavix, we will discuss with neurology; will order asa for now and will update based on neuro recs -Can start subcutaneous heparin today MRI head revealed: 1. Questionable punctate acute infarct within the right posterior frontal lobe. No mass effect or midline shift seen in this region. 2. No significant change in the extra-axial mass along the right parietal convexity. Minimal local mass effect on the adjacent right cerebral hemisphere without evidence of parenchymal edema or midline shift. 3. Mild global parenchymal volume loss with chronic microvascular ischemic changes. (2) TIA (transient ischemic attack) Current Visit: Yes Status: Acute Assessment and Plan: Please see above -Symptoms completely resolved now; however MRI with questionable infarct (3) CKD (chronic kidney disease) Current Visit: Yes Status: Acute Assessment and Plan: Patient with chronic kidney disease stage II likely secondary to hypertension versus diabetes -Baseline serum creatinine between 1.0 and 1.4 -Creatinine at baseline, will monitor (4) History of GI bleed Current Visit: No Status: Acute Assessment and Plan: Patient with history of GI bleed per family and patient requiring frequent IV iron infusions and was unable to determine etiology -She was unable to tolerate anticoagulation due to this and has an IVC filter for history of bilateral lower extremity DVTs (5) Diabetes Current Visit: Yes Status: Chronic Assessment and Plan: Start low-dose sliding scale -Monitor blood glucose -Adjust accordingly -On glipizide at home -A1c 6.8 unchanged from prior (6) HTN (hypertension) Current Visit: Yes Status: Chronic Assessment and Plan: Patient with history of essential hypertension -We will hold antihypertensives for 24 hours secondary to possible CVA -We will resume after 24 hours (1230pm today) -We will resume losartan/hydrochlorothiazide today and will resume Lasix tomorrow (7) Metastatic carcinoid tumor Current Visit: Yes Status: Chronic Assessment and Plan: Chronic history of carcinoid in abdomen patient takes somatostatin injections once monthly (8) Hyperlipidemia Current Visit: Yes Status: Acute Assessment and Plan: Lipid panel reveals hyperlipidemia and hypertriglyceridemia -Atorvastatin 10 mg initiated last night we will increase to 20 mg daily at bedtime; this will need to be titrated up to the maximum tolerated dose as an outpatient preferably 80 mg nightly (9) Hypokalemia Current Visit: Yes Status: Acute Assessment and Plan: Potassium 3.2 will supplement 40 mEq of oral KCl DVT Prophylaxis: Subcutaneous heparin - Time Spent with Patient Total time spent is greater than 50% in coordination of care (as documented) at patient's floor/unit and/or counseling patient: 25 - 35 minutes Internal Medicine: Result - Labs CBC & Chem 7: 02/21/18 05:27 02/21/18 05:27 Labs: Short CBC 02/21/18 Range/Units 05:27 WBC 6.6 (4.3-11.1) K/mcL Hgb 11.7 (11.5-15.4) g/dL Hct 37.1 (35.3-44.9) % Plt Count 216 (140-400) K/mcL Neutrophils # 3.9 (1.6-8.9) K/mcL BMP 02/21/18 05:27 Sodium 142 Potassium 3.4 L Chloride 106 Carbon Dioxide 29 BUN 25 H Creatinine 1.03 Glucose 123 H Calcium 9.4 Liver Function 02/21/18 Range/Units 05:27 Total Bilirubin 0.5 (0.3-1.0) mg/dL AST 15 (13-39) Units/L ALT 11 (7-52) Units/L Alkaline Phosphatase 58 (34-104) Units/L Albumin 3.9 (3.5-5.7) g/dL - ABG Interpretation ABG results: PT/INR, D-dimer PT 11.7 Seconds (9.4-12.1) 02/21/18 05:27 - Impressions Impressions Brain MRI 02/21/18 17:24 IMPRESSION: 1. Questionable punctate acute infarct within the right posterior frontal lobe. No mass effect or midline shift seen in this region. 2. No significant change in the extra-axial mass along the right parietal convexity. Minimal local mass effect on the adjacent right cerebral hemisphere without evidence of parenchymal edema or midline shift. 3. Mild global parenchymal volume loss with chronic microvascular ischemic changes. These results were sent to the [facility] ([facility] on 02/21/2018 at 9:43 am to be communicated to the referring/covering health care provider/office. D/ / Nico Palacios MD / Nico Palacios MD Interpreting Provider: Nico Palacios MD Consult Discharge Plan - Plan Referrals: Antwan Tucker Jr, MD [Primary Care Provider] - (Your appointment has been requested, our offices will call you with an appointment time and date) (3) CKD (chronic kidney disease) Qualifiers: Chronic kidney disease stage: stage 2 (mild) Qualified Code(s): N18.2 - Chronic kidney disease, stage 2 (mild) (5) Diabetes Qualifiers: Diabetes mellitus type: type 2 Diabetes mellitus mcfp insulin use: without mcfp use Diabetes mellitus complication status: without complication Qualified Code(s): E11.9 - Type 2 diabetes mellitus without complications (6) HTN (hypertension) Qualifiers: Hypertension type: essential hypertension Qualified Code(s): I10 - Essential (primary) hypertension (8) Hyperlipidemia Qualifiers: Hyperlipidemia type: mixed hyperlipidemia Qualified Code(s): E78.2 - Mixed hyperlipidemia
[2018-02-21] MEDS: hydroCHLOROthiazide 25 MG TABLET PO SCH (13:40)
--- NOTE | 2018-02-21 16:50 | Electrocardiograph Report ---
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
--- NOTE | 2018-02-21 18:58 | Neurology - Consult Note ---
Date of Encounter: 02/21/18 Time of Encounter: 18:53 Assessment and Plan (1) TIA (transient ischemic attack) Current Visit: Yes Status: Acute Patient has experienced an episode of transient ischemia involving the left cerebral hemisphere. This is very likely caused by the severely elevated blood pressure. She also has other risk factors for small vessel disease including diabetes and hyperlipidemia. The episode resolved largely after about 2 hours and she had residual numbness of the lateral border of the right hand that resolved an hour or so after that. She is back to her normal baseline without any residual. Her neurologic workup has been negative. 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 Carotid Doppler study was negative revealing nonstenotic plaquing. At this point I will recommend normalizing her blood pressure prior to discharge. I would recommend regularly scheduled visits with her primary care provider for aggressive management of her hypertension. I also recommend aspirin 81 mg daily as well as statin therapy. I do not believe that any other treatment is necessary regarding the meningioma. It is very likely been there for several years and considering the fact that she is 87, and the size of the meningioma has not changed over the last 2 years suggest to me that it is stable. I will reevaluate her at your request. He will discharge her at your discretion. History of Present Illness HPI: I had the pleasure of evaluating Jennifer Curry for neurologic consultation at the request of the hospitalist regarding transient ischemic attack. The chart was reviewed, the patient was seen and examined. Ms. Curry is a 87 year old female who experienced acute onset of right upper and lower extremity paresthesias and weakness at about 12:20 p.m. on the day of admission. In the beginning she could barely raise her right leg. However over the course of about 2 hours or so her symptoms had largely resolved with the exception of an area of numbness involving the right hypothenar eminence and fifth digit. She denied headache denied slurred speech denied any visual changes. She denied any confusion. Today she feels completely back to baseline. Upon admission her blood pressure was elevated at 207/86. She also has a right frontal meningioma that is unchanged from a prior study in 2016. There is a punctate abnormality also identified in the right frontal region, however there is no evidence of an abnormality in the left cerebral hemisphere. Carotid Doppler reveals nonstenotic plaquing. Apparently she was previously on aspirin but was told by someone to stop taking it. Blood pressure readings are improved however not yet normalized. Past Med Surg Social Fam HX - Past Medical History Medical history: asthma, cancer, CHF, CVA, DVT, diabetes, hyperlipidemia, hypertension, renal disease, other Additional medical history: Jean-Paul Filter Psychiatric history: no psych history - Past Surgical History Surgical History: BUD/BSO Additional surgical history: shoulder surgery, jean-paul filter, back surgery - Social History Smoking Status: Never smoker Smokeless Tobacco Status: No Alcohol use: none Drug use: none - Family History Mother Living Status: Hx Family Endocrine Disorder: Yes (DM) Hx Family Neuromuscular Disorders: Yes Hx Family Neurologic Disorders: Yes Father Adopted: No Family Member Ethnicity: Non- Living Status: Hx Family Cardiac Disorders: No Hx Family Respiratory Disorders: Yes (lung cancer) Hx Family Cancer: Yes (LUNG) Hx Family GI Disorders: No Hx Family Endocrine Disorder: No Hx Family Neuromuscular Disorders: No Hx Family Neurologic Disorders: No Hx Family HEENT Disorders: No Hx Family Autoimmune Disorders: No Medications and Allergies Ascorbic Acid [Vitamin C] 500 mg PO DAILY 10/14/16 [History] Losartan/Hydrochlorothiazide [Hyzaar 100-12.5 Tablet] 1 each PO DAILY #30 tablet 10/16/16 [Rx] Cholecalciferol (D-3) [Vitamin D] 1,000 unit PO DAILY 12/30/16 [History] Potassium Chloride [K-Tab ER] 10 meq PO DAILY 03/31/17 [History] Aspirin Enteric Coated [Aspirin EC] 325 mg PO DAILY 02/20/18 [History] Ferrous Sulfate [Iron] 325 mg PO DAILY 02/20/18 [History] Furosemide [Lasix] 40 mg PO DAILY 02/20/18 [History] Montelukast [Singulair] 10 mg PO DAILY 02/20/18 [History] Pantoprazole Sodium [Protonix] 20 mg PO DAILY 02/20/18 [History] Promethazine [Phenergan] 12.5 mg PO DAILY 02/20/18 [History] glipiZIDE [Glucotrol] 5 mg PO DAILY 02/20/18 [History] hydrOXYzine HCl [Hydroxyzine HCl] 25 mg PO DAILY PRN 02/20/18 [History] predniSONE [PredniSONE] 10 mg PO DAILY PRN 02/20/18 [History] 3 Allergy/AdvReac Type Severity Reaction Status Date / Time No Known Allergies Allergy Verified 11/14/17 09:19 All Systems: The remainder of the systems were reviewed and are negative Review of Systems: The balance of the systems review is negative. Physical Examination - Vital Signs Vital Signs: Initial Vital Signs Temp Pulse Resp BP Pulse Ox 98.4 F 64 16 207/86 96 02/20/18 14:30 02/20/18 14:30 02/20/18 14:30 02/20/18 14:30 02/20/18 14:30 - Neurologic Detailed motor examination: full strength in all major muscle groups Motor examination - right side: 4/5: deltoids (Previous right rotator cuff repair), 5/5: biceps, triceps, wrist flexion, wrist extension, mold stamper and repairer, hip flexors , tibialis Anterior, quadriceps, toe extension (EHL), plantarflexion Motor examination - left side: 5/5: deltoids, biceps, triceps, wrist flexion, wrist extension, hip flexors, mold stamper and repairer, quadriceps, tibialis Anterior, toe extension (EHL), plantarflexion Mental Status Examination: awake, alert, oriented to person, oriented to place, oriented to time, follows commands appropriately, answers questions appropriately, no agnosia, no aphasia, no aproxia Cranial nerve examination: PERRL, EOMI, visual loomis intact, corneal reflexes brisk symmetrically, sensory to face intact, mastication intact, no facial asymmetry is present, no dysarthria, hearing is intact symmetrically, soft palate elevates bilaterally upon phonation, gag reflex intact, flexes SCM and trapezius muscles symmetrically with full power, tongue protrudes midline, no atrophy or facial fasiculations present Cerebellar examination: no dysmetria, performs finger to nose and heel to [place] symmetrically without ataxia, no gait ataxia, no truncal ataxia, no difficulty with rapid alternating movements Results - Laboratory Findings CBC and BMP: 02/21/18 05:27 02/21/18 05:27 Abnormal lab findings: Abnormal lab results MCV 80.7 fL (83.0-100.0) L 02/21/18 05:27 MCH 25.4 pg (28.0-33.3) L 02/21/18 05:27 MCHC 31.5 g/dL (31.6-35.5) L 02/21/18 05:27 RDW 15.7 % (11.5-14.5) H 02/21/18 05:27 Potassium 3.4 mEq/L (3.5-5.1) L 02/21/18 05:27 BUN 25 mg/dL (8-23) H 02/21/18 05:27 Est GFR (Non-Af Amer) 51 (> 60) L 02/21/18 05:27 Glucose 123 mg/dL (70-105) H 02/21/18 05:27 POC Glucose 114 mg/dL (70-99) H 02/21/18 15:17 Hemoglobin A1c 6.8 % (-5.6) H 02/21/18 05:27 Serum Total Protein 6.3 g/dL (6.4-8.9) L 02/21/18 05:27 Triglycerides 196 mg/dL (< 150) H 02/21/18 05:27 Cholesterol 264 mg/dL (< 200) H 02/21/18 05:27 LDL Cholesterol, Calc 183 mg/dL (0-99) H 02/21/18 05:27 VLDL Cholesterol, Calc 39 mg/dL (< 31) H 02/21/18 05:27 Cholesterol/HDL Ratio 6.3 (0-4.9) H 02/21/18 05:27 Consult Discharge Plan - Plan Referrals: Antwan Tucker Jr, MD [Primary Care Provider] - (Your appointment has been requested, our offices will call you with an appointment time and date)
[2018-02-21] MEDS: *HR* Heparin 5,000 UNIT/ML VIAL SQ SCH (20:35)
[2018-02-21 23:14] LABS: Bilirubin,Urine Negative (Negative); Blood,Urine Negative (Negative); Clarity,Urine Clear (Clear); Color,Urine Yellow (Yellow); Glucose,Urine (UA) Normal (Normal); Ketones,Urine Negative (Negative); Leukocyte Esterase,Urine Moderate (Negative); Nitrite,Urine Negative (Negative); Protein,Urine Negative (Neg-Trace); Specific Gravity,Urine < 1.005 (1.010-1.025); Urobilinogen,Urine Normal (Normal)
[2018-02-21 23:16] LABS: Bacteria,Urine None Seen per hpf (None-Few); Hyaline Casts,Urine None Seen per lpf (None-Few); RBC,Urine 0-3 per hpf (0-3); Squamous Epithelial Cell,Urine Moderate per lpf (None-Few)
[2018-02-22] MEDS ORDERED: Saline Nasal Spray 44 ML BOTTLE NS PRN (04:06)
[2018-02-22] MEDS: *HR* Heparin 5,000 UNIT/ML VIAL SQ SCH ×3 (05:16→21:23)
[2018-02-22] MEDS ORDERED: Ondansetron ODT 4 MG TAB.RAPDIS SL PRN (08:34)
[2018-02-22] MEDS ORDERED: Furosemide 40 MG TABLET PO SCH (09:00)
[2018-02-22] MEDS: Ascorbic Acid 500 MG TABLET PO SCH (09:06)
[2018-02-22] MEDS: Cholecalciferol (D-3) 1,000 UNIT TABLET PO SCH (09:06)
[2018-02-22] MEDS: hydroCHLOROthiazide 25 MG TABLET PO SCH (09:06)
[2018-02-22] MEDS: Aspirin Enteric Coated 81 MG Tablet PO SCH (09:06)
[2018-02-22] MEDS: Insulin LISPRO 300 UNITS/3 ML VIAL SQ SCH ×4 (09:11→21:25)
[2018-02-22] MEDS ORDERED: hydroCHLOROthiazide 25 MG TABLET PO ONE (09:38)
--- NOTE | 2018-02-22 09:59 | Internal Med Progress Note ---
Hospitalist Progress Note - Encounter Date of Encounter: 02/22/18 Time of Encounter: 09:57 - Subjective Interval History: Patient seen and examined at bedside. Patient had no overnight acute events. Patient states that she feels nauseous this morning and was given Zofran and feels slightly better. Patient states that she feels overall slightly weak but is not having any recurrence of her right-sided neurological deficits. Patient was seen by neurology yesterday who believes that the patient just had a TIA and not CVA per MRI. Patient has benign meningioma that is stable too. Patient required IV hydralazine for blood pressure last night. Patient denies any chest pain, shortness of breath, and vomiting, abdominal pain, diarrhea. Admits to nausea and generalized weakness. Patient asking if she can get up and walk if she is tired of sitting in the bed. Told her that is fine. - Exam Vitals: Temp Pulse Resp BP Pulse Ox 98.4 F 81 16 164/64 95 02/22/18 07:29 02/22/18 07:29 02/22/18 07:29 02/22/18 07:39 02/22/18 07:29 Exam: Constitutional: No acute distress, Alert Psych: AAO x 3 HEENT: NCAT, EOMI Neck: supple, no JVD Cardio: regular rate and rhythm, Resp: clear to ascultation bilaterally, Abd: soft, non tender/non distended, positive bowel sounds, no gaurding/reboud/ ridgitity Extremities: no clubbing/cyanosis/edema appreciated Neuro: no focal deficits appreciated, full motor strenght and no sensory deficits. - Assessment and Plan (1) TIA (transient ischemic attack) Current Visit: Yes Status: Acute Assessment and Plan: Patient with acute onset of right sided numbness and weakness that resolved after several hours -patient initially had persistant abnormal sensation in her right fifth finger but is now resolved -MRI shows questionable right posterior frontal lobe punctate infarct and unchanged extra-axial mass in right parietal convexity with minimal local mass effect on the adjacent right cerebral hemisphere; however pt with right sided deficits so these findings dont seem to support the clinical findings; however the pt has complete resolution of all symptoms today. -CVA excluded -stable meningioma -Patient has risk factors of diabetes and hypertension -Not TPA candidate secondary to resolution of symptoms/near resolution of symptoms and previous GI bleed; evaluated by [facility] tele stroke unit -Neuro checks -CT of brain was negative for any acute process -Ultrasound carotids with non stenotic plaquing per neruology -EKG revealed sinus rhythm -Lipid panel with significant hyperlipidemia; was not previously on statin started atorvastatin 10 mg yesterday we will increase to 20 mg today -hemoglobin A1c 6.8 and unchanged from prior -Aspirin resumed -Patient required IV hydralazine yesterday; patient's Hyzaar was restarted yesterday and Lasix was restarted today; add Norvasc and increase hydrochlorothiazide dose to better control blood pressure MRI head revealed: 1. Questionable punctate acute infarct within the right posterior frontal lobe. No mass effect or midline shift seen in this region. 2. No significant change in the extra-axial mass along the right parietal convexity. Minimal local mass effect on the adjacent right cerebral hemisphere without evidence of parenchymal edema or midline shift. 3. Mild global parenchymal volume loss with chronic microvascular ischemic changes. 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 (4) Diabetes Current Visit: Yes Status: Chronic Assessment and Plan: Start low-dose sliding scale -Monitor blood glucose -Adjust accordingly -On glipizide at home -A1c 6.8 unchanged from prior (5) HTN (hypertension) Current Visit: Yes Status: Chronic Assessment and Plan: Patient with history of essential hypertension -continue losartan/hydrochlorothiazide -Continue Lasix -Increase hydrochlorothiazide component 25 mg daily -Start Norvasc 5 mg daily -She required IV hydralazine overnight -Explained to patient that we need to get her blood pressure under control with no IV medications prior to discharge (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 Assessment and Plan: Chronic history of carcinoid in abdomen patient takes somatostatin injections once monthly (7) Hyperlipidemia Current Visit: Yes Status: Acute (8) Hypokalemia Current Visit: Yes Status: Acute Assessment and Plan: Potassium 3.2 yesterday and was replaced, will check tomorrow - Time Spent with Patient Total time spent is greater than 50% in coordination of care (as documented) at patient's floor/unit and/or counseling patient: Plan of Care Discussed with: patient Internal Medicine: Result - Labs CBC & Chem 7: 02/21/18 05:27 02/21/18 05:27 Labs: Urine 02/21/18 Range/Units 22:54 Urine Color Yellow (Yellow) Urine Clarity Clear (Clear) Urine pH 7.0 (5.0-8.0) pH Units Ur Specific [place] < 1.005 L (1.010-1.025) Urine Protein Negative (Neg-Trace) mg/dL Urine Glucose (UA) Normal (Normal) mg/dL - ABG Interpretation ABG results: PT/INR, D-dimer PT 11.7 Seconds (9.4-12.1) 02/21/18 05:27 Consult Discharge Plan - Plan Referrals: Antwan Tucker Jr, MD [Primary Care Provider] - (Your appointment has been requested, our offices will call you with an appointment time and date) (2) CKD (chronic kidney disease) Qualifiers: Chronic kidney disease stage: stage 2 (mild) Qualified Code(s): N18.2 - Chronic kidney disease, stage 2 (mild) (4) Diabetes Qualifiers: Diabetes mellitus type: type 2 Diabetes mellitus detention insulin use: without detention use Diabetes mellitus complication status: without complication Qualified Code(s): E11.9 - Type 2 diabetes mellitus without complications (5) HTN (hypertension) Qualifiers: Hypertension type: essential hypertension Qualified Code(s): I10 - Essential (primary) hypertension (7) Hyperlipidemia Qualifiers: Hyperlipidemia type: mixed hyperlipidemia Qualified Code(s): E78.2 - Mixed hyperlipidemia
[2018-02-22] MEDS: amLODIPine 5 MG TABLET PO SCH (14:05)
[2018-02-23] MEDS: *HR* Heparin 5,000 UNIT/ML VIAL SQ SCH (05:42)
[2018-02-23 06:29] LABS: Calcium 9.4 mg/dL (8.6-10.3); Potassium 2.9 mEq/L (3.5-5.1)
[2018-02-23 07:04] VITALS: BP 130/63
[2018-02-23] MEDS: amLODIPine 5 MG TABLET PO SCH (07:50)
[2018-02-23] MEDS: Ascorbic Acid 500 MG TABLET PO SCH (07:50)
[2018-02-23] MEDS: Aspirin Enteric Coated 81 MG Tablet PO SCH (07:50)
[2018-02-23] MEDS: Cholecalciferol (D-3) 1,000 UNIT TABLET PO SCH (07:51)
--- NOTE | 2018-02-23 08:04 | Discharge Summary ---
- NOTES TO OUTPATIENT PROVIDER Notes to Outpatient Provider: Patient presented with TIA and uncontrolled hypertension. Patient will be discharged on her home blood pressure medications with the addition of 5 mg of Norvasc. Lasix will be held on Monday and Monday after discharge and it can be resumed on 02/26/2018. Please check kidney function and electrolytes at follow-up visit, order for BMP given to patient. Date of Encounter: 02/23/18 Time of Encounter: 08:02 - Discharge Diagnosis (1) TIA (transient ischemic attack) Priority: Primary Status: Acute Assessment and Plan: Patient with acute onset of right sided numbness and weakness that resolved after several hours -patient initially had persistant abnormal sensation in her right fifth finger but is now resolved -MRI shows questionable right posterior frontal lobe punctate infarct and unchanged extra-axial mass in right parietal convexity with minimal local mass effect on the adjacent right cerebral hemisphere; however pt with right sided deficits so these findings dont seem to support the clinical findings; however the pt has complete resolution of all symptoms today. -CVA excluded -stable meningioma -Patient has risk factors of diabetes and hypertension -Not TPA candidate secondary to resolution of symptoms/near resolution of symptoms and previous GI bleed; evaluated by [facility] tele stroke unit -Neuro checks -CT of brain was negative for any acute process -Ultrasound carotids with non stenotic plaquing per neruology -EKG revealed sinus rhythm -Lipid panel with significant hyperlipidemia; was not previously on statin started atorvastatin 10 mg yesterday we will increase to 20 mg today -hemoglobin A1c 6.8 and unchanged from prior -Aspirin resumed -Blood pressure better controlled we will discharge on normal home medications with the addition of Norvasc 5 mg daily. Patient will hold Lasix over weekend and resume on 02/26/2018. MRI head revealed: 1. Questionable punctate acute infarct within the right posterior frontal lobe. No mass effect or midline shift seen in this region. 2. No significant change in the extra-axial mass along the right parietal convexity. Minimal local mass effect on the adjacent right cerebral hemisphere without evidence of parenchymal edema or midline shift. 3. Mild global parenchymal volume loss with chronic microvascular ischemic changes. (2) CKD (chronic kidney disease) Priority: Secondary Status: Acute Assessment and Plan: Patient with chronic kidney disease stage II/III likely secondary to hypertension versus diabetes -Baseline serum creatinine between 1.0 and 1.4 -Creatinine at baseline though with slight increased today from admission creatinine 1.22 which is consistent with baseline; likely due to decreased by mouth intake as the patient was nauseous yesterday -Informed patient to hold Lasix today Monday and Monday and resume on Monday. She will be given order for BMP 3 followed up with primary care physician. Patient states she understands. Qualifiers: Chronic kidney disease stage: stage 3 (moderate) Qualified Code(s): N18.3 - Chronic kidney disease, stage 3 (moderate) (3) History of GI bleed Priority: Secondary Status: Acute (4) Diabetes Priority: Secondary Status: Chronic Qualifiers: Diabetes mellitus type: type 2 Diabetes mellitus senior living insulin use: without terminal computer operator use Diabetes mellitus complication status: without complication Qualified Code(s): E11.9 - Type 2 diabetes mellitus without complications (5) HTN (hypertension) Priority: Secondary Status: Chronic Assessment and Plan: Patient with history of essential hypertension -Continue Lasix but hold today and over weekend and resume 02/26/18 continue to mild increase in creatinine likely secondary to decreased by mouth intake from nausea; creatinine at baseline -Continue home losartan/hydrochlorothiazide -Start Norvasc 5 mg daily Qualifiers: Hypertension type: essential hypertension Qualified Code(s): I10 - Essential (primary) hypertension (6) Metastatic carcinoid tumor Priority: Secondary Status: Chronic (7) Hyperlipidemia Priority: Secondary Status: Acute Qualifiers: Hyperlipidemia type: mixed hyperlipidemia Qualified Code(s): E78.2 - Mixed hyperlipidemia (8) Hypokalemia Priority: Secondary Status: Acute Hospital course: Ms. Curry is a 87 year old female who presented to emergency department with acute onset of right-sided weakness and numbness. The patient had stroke protocol activated and CT was negative for any acute process. The patient's symptoms however ribs nearly resolved prior to evaluation for TPA. Therefore she was not a TPA candidate. The patient did have some residual right hyperthenar numbness however this resolved before 24 hours consistent with TIA. Allergies the patient who reviewed MRI which was negative for acute CVA, patient's meningioma is stable and unchanged for the past 2 years. The patient' s blood pressure was uncontrolled on admission however with the resumption of her home medications and the addition of Norvasc the patient's blood pressure was controlled prior to discharge. She has chronic kidney disease stage III and creatinine is at baseline however increased slightly from admission secondary to likely decreased by mouth intake from nausea; the patient was instructed to hold her Lasix today and through the weekend and resume on Monday , 02/26/2018. Creatinine at discharge 1.2 to which is within her baseline. Patient will be given an order for BMP to be checked next week and was instructed to see her primary care doctor next week to follow-up on BMP results and for transition of care. She states she understands. Patient has aspirin listed on home medications however was reportedly not taking and this will be resumed at discharge. Patient states that she does not take a statin however lipid panel is consistent with dyslipidemia and atorvastatin 20 mg was started this should be increased to the maximum tolerated dose. Patient stable for discharge and agreeable and all questions answered. Discharge discussed with: patient, nurse - Time Spent with Patient Total time spent providing and/or coordinating discharge services: Greater than 30 minutes - Discharge Medications Prescriptions: amLODIPine [Norvasc] 5 mg PO DAILY 30 Days #30 tablet Aspirin Enteric Coated [Aspirin EC] 81 mg PO DAILY 30 Days #30 tablet. Atorvastatin [Lipitor] 20 mg PO HS 30 Days #30 tablet Home Medications: Ascorbic Acid [Vitamin C] 500 mg PO DAILY 10/14/16 [History] Losartan/Hydrochlorothiazide [Hyzaar 100-12.5 Tablet] 1 each PO DAILY #30 tablet 10/16/16 [Rx] Cholecalciferol (D-3) [Vitamin D] 1,000 unit PO DAILY 12/30/16 [History] Potassium Chloride [K-Tab ER] 10 meq PO DAILY 03/31/17 [History] Ferrous Sulfate [Iron] 325 mg PO DAILY 02/20/18 [History] Montelukast [Singulair] 10 mg PO DAILY 02/20/18 [History] Pantoprazole Sodium [Protonix] 20 mg PO DAILY 02/20/18 [History] Promethazine [Phenergan] 12.5 mg PO DAILY 02/20/18 [History] glipiZIDE [Glucotrol] 5 mg PO DAILY 02/20/18 [History] hydrOXYzine HCl [Hydroxyzine HCl] 25 mg PO DAILY PRN 02/20/18 [History] predniSONE [PredniSONE] 10 mg PO DAILY PRN 02/20/18 [History] Aspirin Enteric Coated [Aspirin EC] 81 mg PO DAILY 30 Days #30 tablet. [Rx] Atorvastatin [Lipitor] 20 mg PO HS 30 Days #30 tablet 02/23/18 [Rx] amLODIPine [Norvasc] 5 mg PO DAILY 30 Days #30 tablet 02/23/18 [Rx] Allergies/Adverse Reactions: 3 Allergy/AdvReac Type Severity Reaction Status Date / Time omeprazole [From Prilosec] AdvReac Confusion Verified 02/22/18 12:08 Date of admission: 02/20/18 17:34 Primary care physician: Antwan Tucker Jr, MD - Constitutional Vitals: Temp Pulse Resp BP Pulse Ox 98.7 F 63 16 130/63 94 02/23/18 07:00 02/23/18 07:00 02/23/18 07:00 02/23/18 07:00 02/23/18 07:00 Exam: Constitutional: No acute distress, Alert Psych: AAO x 3 Cardio: regular rate and rhythm, Resp: clear to ascultation bilaterally, Abd: soft, non tender/non distended, positive bowel sounds, no gaurding/reboud/ ridgitity Extremities: no clubbing/cyanosis/edema appreciated Neuro: no focal deficits appreciated, full motor strength and no sensory deficits, CNII-XII Grossly Intact - Patient Status Disposition: Home, Self-Care Condition: Good Functional capacity at discharge: independent ambulation Overall status at discharge: patient is back to baseline - Discharge Instructions Follow Up With: Antwan Tucker Jr, MD [Primary Care Provider] - 02/28/18 10:00 am () Forms: ED Satisfaction Letter - Diet and Activity Activity: increase activity as tolerated Diet: advance to your usual diet, diabetic diet, low salt diet - VTE Documentation of Mechanical Device: Intermittent pneumatic compression device
[2018-02-23] MEDS: Insulin LISPRO 300 UNITS/3 ML VIAL SQ SCH (08:07)
[2018-02-23] MEDS ORDERED: hydroCHLOROthiazide 25 MG TABLET PO SCH ×2 (09:00)
[2018-02-23] MEDS ORDERED: Pantoprazole 40 MG VIAL IVP SCH (09:00)
== END 2018-02-23 11:06 | disposition home or self-care (01) | DRG 69 ==
LOC: EMEROO 14:19 → 3BNU 14:19
PROVIDERS: ADMIT Internal Medicine; ATTEND Internal Medicine

== ENCOUNTER 2018-05-12 10:59 | Observation (INO) ==
--- NOTE | 2018-05-12 11:02 | Emergency Department Note ---
Disposition Clinical Impression: Near syncope, Hypokalemia, Anemia Disposition: Admitted As Inpatient Condition: Good General Adult HPI - General Stated complaint: syncopal episode Time Seen by Provider: 05/12/18 11:01 - Related Data Home Medications Medication Instructions Recorded Confirmed RX: Ascorbic Acid [Vitamin C] 500 mg PO DAILY 10/14/16 05/12/18 RX: Cholecalciferol (D-3) [Vitamin 1,000 unit PO DAILY 12/30/16 05/12/18 D] RX: Potassium Chloride [K-Tab ER] 20 meq PO DAILY 03/31/17 05/12/18 RX: Ferrous Sulfate [Iron] 325 mg PO DAILY 02/20/18 05/12/18 RX: Montelukast [Singulair] 10 mg PO DAILY 02/20/18 05/12/18 RX: Pantoprazole Sodium [Protonix] 20 mg PO DAILY 02/20/18 05/12/18 RX: glipiZIDE [Glucotrol] 5 mg PO DAILY 02/20/18 05/12/18 RX: hydrOXYzine HCl [Hydroxyzine 25 mg PO DAILY PRN 02/20/18 05/12/18 HCl] Albuterol Sulfate [Ventolin Hfa] 2 puff IH Q4H PRN 05/12/18 05/12/18 Budesonide/Formoterol 160/4.5 2 puff IH BIDR 05/12/18 05/12/18 [Symbicort 160/4.5] HYDROcodone/Acet 5/325 mg [[place] 1 tab PO Q6H PRN 05/12/18 05/12/18 5-325 mg] Losartan/Hydrochlorothiazide 1 tab PO DAILY 05/12/18 05/12/18 [Losartan-Hctz 100-25 mg Tab] RX: Furosemide [Lasix] 10 - 20 mg PO 5XW 05/12/18 05/12/18 Previous Rx's Medication Instructions Recorded RX: Aspirin Enteric Coated 81 mg PO DAILY 30 Days #30 02/23/18 [Aspirin EC] tablet. 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 - Social History Smoking Status: Never smoker Smokeless Tobacco Status: No Alcohol use: Reports: none Drug use: Reports: none Course Vital Signs Temperature 98.6 F 05/12/18 11:00 Pulse Rate 60 05/12/18 11:00 Respiratory Rate 16 05/12/18 11:00 Blood Pressure 159/56 05/12/18 11:00 O2 Sat by Pulse Oximetry 98 05/12/18 11:00 Temperature 97.8 F 05/12/18 14:21 Pulse Rate 66 05/12/18 14:21 Respiratory Rate 16 05/12/18 14:21 Blood Pressure 145/61 05/12/18 14:21 O2 Sat by Pulse Oximetry 96 05/12/18 14:21 Oxygen Delivery Oxygen Delivery Room Air Medical Decision Making - Lab Data Result diagrams: 05/12/18 11:20 05/12/18 11:20 Lab Results 05/12/18 05/12/18 05/12/18 Range/Units 11:20 11:20 11:20 WBC 8.4 (4.3-11.1) K/mcL RBC 4.31 (3.82-4.97) M/mcL Hgb 11.2 L (11.5-15.4) g/dL Hct 35.5 (35.3-44.9) % MCV 82.4 L (83.0-100.0) fL MCH 26.0 L (28.0-33.3) pg MCHC 31.5 L (31.6-35.5) g/dL RDW 15.2 H (11.5-14.5) % Plt Count 221 (140-400) K/mcL MPV 10.3 (9.4-12.4) fL Immature Gran % 0.7 (0-4) % Seg Neutrophils % 61.7 % Lymphocytes % 26.3 % Monocytes % 6.8 % Eosinophils % 3.9 % Basophils % 0.6 % Neutrophils # 5.2 (1.6-8.9) K/mcL Lymphocytes # 2.2 (0.6-4.6) K/mcL Monocytes # 0.6 (0.0-1.3) K/mcL Eosinophils # 0.3 (0.0-0.6) K/mcL Basophils # 0.1 (0.0-0.2) K/mcL PT 11.5 (9.4-12.1) Seconds INR 1.0 Sodium 142 (136-145) mEq/L Potassium 3.1 L (3.5-5.1) mEq/L Chloride 103 (98-107) mEq/L Carbon Dioxide 29 (23-29) mEq/L BUN 28 H (8-23) mg/dL Creatinine 1.07 (0.60-1.20) mg/dL Est GFR ( Amer) 59 L (> 60) Est GFR (Non-Af Amer) 49 L (> 60) BUN/Creatinine Ratio 26 (6-26) Glucose 124 H (70-105) mg/dL Calculated Osmolality 301 H (280-300) Calcium 9.6 (8.6-10.3) mg/dL Magnesium 2.0 (1.6-2.6) mg/dL Troponin I < 0.03 (< 0.04) ng/mL Attestation Statement - Attestation Attestation: I examined this patient and my medical decision-making was reviewed with the Resident Physician. I agree with the documented findings, disposition and treatment plan as described except to the extent set forth below. [id number] time provided Patient arrives by EMS. She complains of a near syncopal event. She is somewhat of a limited historian regarding the events. She denies traumatic injury. He does not appear in any acute distress upon arrival. Evaluated in conjunction with the resident physician Dr. Kerr
--- NOTE | 2018-05-12 11:09 | Emergency Department Note ---
Disposition Clinical Impression: Near syncope, Hypokalemia Anemia Qualifiers: Anemia type: unspecified type Qualified Code(s): D64.9 - Anemia, unspecified Disposition: Admitted As Inpatient Condition: Good Referrals: Antwan Tucker Jr, MD [Primary Care Provider] - Forms: ED Satisfaction Letter Time of Disposition: 12:18 General Adult HPI - General Chief complaint: ED Syncope Stated complaint: syncopal episode Time Seen by Provider: 05/12/18 11:01 Source: patient, EMS Mode of arrival: EMS Limitations: no limitations Nursing Notes Reviewed: Yes Vital Signs Reviewed: Yes - History of Present Illness HPI Narrative: Patient is an 87-year-old female that presents emergency department after a near syncopal episode. Patient states that she was at congregational this morning and was getting ready to get herself some coffee and felt lightheaded like she was going to pass out. Patient states that she called for her friend over and she caught her before she was going to fall. Patient denies actual passing out. Patient states that she was easily is brought to the ground. Patient states that she has had this before. Patient states that she is a diabetic and takes oral medications and has never been given a low worse made her pass out. Patient denies any chest pain or shortness of breath. Patient denies any numbness, weakness or tingling. Patient states that it was sudden onset of right headedness. Pain Scale: 0 - Related Data Home Medications Medication Instructions Recorded Confirmed Ascorbic Acid [Vitamin C] 500 mg PO DAILY 10/14/16 05/01/18 Cholecalciferol (D-3) [Vitamin D] 1,000 unit PO DAILY 12/30/16 05/01/18 Potassium Chloride [K-Tab ER] 10 meq PO DAILY 03/31/17 05/01/18 Ferrous Sulfate [Iron] 325 mg PO DAILY 02/20/18 05/01/18 Montelukast [Singulair] 10 mg PO DAILY 02/20/18 05/01/18 Pantoprazole Sodium [Protonix] 20 mg PO DAILY 02/20/18 05/01/18 Promethazine [Phenergan] 12.5 mg PO DAILY 02/20/18 05/01/18 glipiZIDE [Glucotrol] 5 mg PO DAILY 02/20/18 05/01/18 hydrOXYzine HCl [Hydroxyzine HCl] 25 mg PO DAILY PRN 02/20/18 05/01/18 predniSONE [PredniSONE] 10 mg PO DAILY PRN 02/20/18 05/01/18 Previous Rx's Medication Instructions Recorded Aspirin Enteric Coated [Aspirin EC] 81 mg PO DAILY 30 Days #30 02/23/18 tablet. Atorvastatin [Lipitor] 20 mg PO HS 30 Days #30 tablet 02/23/18 amLODIPine [Norvasc] 5 mg PO DAILY 30 Days #30 tablet 02/23/18 Allergies Allergy/AdvReac Type Severity Reaction Status Date / Time omeprazole [From Prilosec] AdvReac Confusion Verified 05/01/18 08:15 All systems ED: reviewed and negative except as stated. Cardiovascular: Denies: chest pain Respiratory: Denies: dyspnea Neurological: Reports: other (Lightheaded ). 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 Absent: respiratory distress, wheezes - Cardiovascular Cardiovascular exam: Present: regular rate, normal rhythm, normal heart sounds, +S1, +S2 - Abdominal Exam Abdominal exam: Present: soft, Non-Tender, normal bowel sounds - Neurological Exam Neurological exam: Present: alert, oriented X3, CN II-XII intact - Expanded Neurological Exam Speech: Present: fluid speech Cranial nerves: EOM function (II, III, IV, ): Normal, facial sensation (V): Normal, facial palsy (VII): Normal, gag reflex (IX): Normal, spinal accessory function (XI): Normal, tongue deviation (XII): Normal Cerebellar function: finger to nose: Normal, heel to [place]: Normal Motor strength - LUE: 5/5 Motor strength - RUE: 5/5 Motor strength - LLE: 5/5 Motor strength - RLE: 5/5 Upper motor neuron exam: pronator drift: Absent bilaterally Sensory exam upper extremity: light touch: Normal Sensory exam lower extremity: light touch: Normal Coma Scale Eye Opening: Spontaneous Coma Scale Motor Response: Obeys Commands Coma Scale Verbal Response: Oriented Coma Scale Total: 15 - Psychiatric Psychiatric exam: Present: normal affect, normal mood - Skin Skin exam: Present: warm, dry, intact Course Vital Signs Temperature 98.6 F 05/12/18 11:00 Pulse Rate 60 05/12/18 11:00 Respiratory Rate 16 05/12/18 11:00 Blood Pressure 159/56 05/12/18 11:00 O2 Sat by Pulse Oximetry 98 05/12/18 11:00 Temperature 98.6 F 05/12/18 11:00 Pulse Rate 60 05/12/18 11:00 Respiratory Rate 16 05/12/18 11:00 Blood Pressure 159/56 05/12/18 11:00 O2 Sat by Pulse Oximetry 98 05/12/18 11:00 Oxygen Delivery Oxygen Delivery Room Air Medical Decision Making - MDM Narrative Medical decision making narrative: Due the patient presents emergency Department with near syncopal episode we will obtain a temperature tests including CBC, BMP, troponin chest x-ray, EKG and a bedside glucose. Patient's troponin is negative. Chest x-ray shows atelectasis first pneumonia. Patient has no other symptoms suggestive of pneumonia feel like this is likely atelectasis. Patient has a potassium of 3.1 we will replace this with oral potassium. Patient does have a mild anemia however this does appear to be chronic for her. Her EKG did not show any arrhythmias at this time but there was some mild depressions in the lateral leads. Remainder of her laboratory testing was relatively unremarkable and at the patient's baseline. Due to the patient still feeling lightheaded and having unexplained reason for her near-syncope feel that is appropriate for the patient to be admitted to the hospital at this time. There is no family at bedside for further history or cl arification of the patient's symptoms. Called and spoke with the admitting hospitalist Dr. Rogel and she has accepted the patient to their service. Patient will be admitted to the hospital at this time for further evaluation and management. - Medical Records Medical records reviewed: Yes I reviewed the patient's medical records. - Lab Data Lab results reviewed: Yes I reviewed the patient's lab results. Result diagrams: 05/12/18 11:20 05/12/18 11:20 Lab Results 05/12/18 05/12/18 05/12/18 Range/Units 11:20 11:20 11:20 WBC 8.4 (4.3-11.1) K/mcL RBC 4.31 (3.82-4.97) M/mcL Hgb 11.2 L (11.5-15.4) g/dL Hct 35.5 (35.3-44.9) % MCV 82.4 L (83.0-100.0) fL MCH 26.0 L (28.0-33.3) pg MCHC 31.5 L (31.6-35.5) g/dL RDW 15.2 H (11.5-14.5) % Plt Count 221 (140-400) K/mcL MPV 10.3 (9.4-12.4) fL Immature Gran % 0.7 (0-4) % Seg Neutrophils % 61.7 % Lymphocytes % 26.3 % Monocytes % 6.8 % Eosinophils % 3.9 % Basophils % 0.6 % Neutrophils # 5.2 (1.6-8.9) K/mcL Lymphocytes # 2.2 (0.6-4.6) K/mcL Monocytes # 0.6 (0.0-1.3) K/mcL Eosinophils # 0.3 (0.0-0.6) K/mcL Basophils # 0.1 (0.0-0.2) K/mcL PT 11.5 (9.4-12.1) Seconds INR 1.0 Sodium 142 (136-145) mEq/L Potassium 3.1 L (3.5-5.1) mEq/L Chloride 103 (98-107) mEq/L Carbon Dioxide 29 (23-29) mEq/L BUN 28 H (8-23) mg/dL Creatinine 1.07 (0.60-1.20) mg/dL Est GFR ( Amer) 59 L (> 60) Est GFR (Non-Af Amer) 49 L (> 60) BUN/Creatinine Ratio 26 (6-26) Glucose 124 H (70-105) mg/dL Calculated Osmolality 301 H (280-300) Calcium 9.6 (8.6-10.3) mg/dL Troponin I < 0.03 (< 0.04) ng/mL - Radiology Data Radiology results reviewed: Yes I reviewed the patient's radiology results. Chest X-Ray 05/12/18 11:05 IMPRESSION: 1. Left basilar airspace disease either due to atelectasis or developing pneumonia. D/ / Fco Fink MD / Fco Fink MD Interpreting Provider: Fco Fink MD - EKG Data EKG #1 EKG attestation: Yes I reviewed and interpreted this EKG. EKG results narrative: EKG showed a sinus rhythm and rate of 59 bpm, [place] interval of 264, QRS duration of 100, QTc of 446. No evidence of STEMI on EKG. There is some mild prescription ST segments in leads 2 and aVF. Some mild depressions in V5 and V6. This is compared to previous EKG on 02/20/18.
[2018-05-12 11:36] LABS: Basophils # 0.1 K/mcL (0.0-0.2); Basophils % 0.6 %; Eosinophils # 0.3 K/mcL (0.0-0.6); Eosinophils % 3.9 %; Hematocrit 35.5 % (35.3-44.9); Hemoglobin 11.2 g/dL (11.5-15.4); Immature Granulocytes % 0.7 % (0-4); Lymphocytes # 2.2 K/mcL (0.6-4.6); Lymphocytes % 26.3 %; Mean Corpuscular HGB Conc 31.5 g/dL (31.6-35.5); Mean Corpuscular Volume 82.4 fL (83.0-100.0); Mean Platelet Volume 10.3 fL (9.4-12.4); Monocytes # 0.6 K/mcL (0.0-1.3); Monocytes % 6.8 %; Neutrophils # 5.2 K/mcL (1.6-8.9); Platelet Count 221 K/mcL (140-400); Red Blood Count 4.31 M/mcL (3.82-4.97); Red Cell Distribution Width 15.2 % (11.5-14.5); Segmented Neutrophils % 61.7 %
[2018-05-12 11:45] LABS: Prothrombin Time 11.5 Seconds (9.4-12.1)
[2018-05-12 11:59] LABS: BUN/Creatinine Ratio 26 (6-26); Blood Urea Nitrogen 28 mg/dL (8-23); Calcium 9.6 mg/dL (8.6-10.3); Carbon Dioxide 29 mEq/L (23-29); Chloride 103 mEq/L (98-107); Glucose 124 mg/dL (70-105); Osmolality,Calculated 301 (280-300); Potassium 3.1 mEq/L (3.5-5.1); Sodium 142 mEq/L (136-145); eGFR For Non-African Americans 49 (> 60)
[2018-05-12 12:00] LABS: Troponin I < 0.03 ng/mL (< 0.04)
[2018-05-12] MEDS ORDERED: Potassium Chloride Elixir 20 MEQ/15 ML UDC PO STA (12:15)
[2018-05-12] MEDS ORDERED: Naloxone 0.4 MG/ML INJ IVP PRN (13:42)
[2018-05-12] MEDS ORDERED: *HR* Dextrose 50 % in Water (Syg) 50 ML SYRINGE IVP PRN (13:45)
[2018-05-12] MEDS ORDERED: D5% in Water 1,000 ML IVC PRN (13:45)
[2018-05-12] MEDS ORDERED: Dextrose Gel 15 GM/37.5 ML TUBE PO PRN ×2 (13:45)
--- NOTE | 2018-05-12 13:54 | Internal Med History&Physical ---
<Dayday Worthington S - Last Filed: 05/12/18 13:47> Date of Encounter: 05/12/18 Time of Encounter: 13:47 Internal Medicine - H&P: HPI Chief complaint: passed out at [employer] Admitted From: Home Plans for Post Hospital Care: Home History of present illness: Ms. Curry is a 87 year old female with PMH of carcinoid tumor, asthma, CVA, T2DM, HDL, and HTN. She presents to the ER today with the c/o almost passing out and her friend helping her to the ground at [facility]. The pt states that she was standing at [employer] getting coffee and she suddenly felt very flushed, had a cold sweat and felt a "weird sensation" in her stomach. The pt states that she has had this happen multiple times in the past and has a hx of passing out. The pt denies any chest pain, preceding palpitations before feeling like she was about to pass out. She had one episode of vomiting on the way over to the hospital. She had no numbness/tingling, slurred speech, facial droop. She denies any head trauma. The pt does report eating less than usual today. The pt had a negative CT head while in the ER. She was noted to have a potassium of 3.1, which was replaced. EKG was negative for any acute signs of ischemia. Past Med Surg Social Fam HX - Past Medical History Medical history: asthma, cancer, CHF, CVA, DVT, diabetes, hyperlipidemia, hypertension, renal disease, other Additional medical history: [place] Filter. Stomach CA Psychiatric history: no psych history - Past Surgical History Surgical History: BUD/BSO Additional surgical history: shoulder surgery, roman filter, back surgery - Social History Smoking Status: Never smoker Smokeless Tobacco Status: No Alcohol use: none Drug use: none - Family History Father Adopted: No Family Member Ethnicity: Non- Living Status: Hx Family Cardiac Disorders: No Hx Family Respiratory Disorders: Yes (lung cancer) Hx Family Cancer: Yes (LUNG) Hx Family GI Disorders: No Hx Family Endocrine Disorder: No Hx Family Neuromuscular Disorders: No Hx Family Neurologic Disorders: No Hx Family HEENT Disorders: No Hx Family Autoimmune Disorders: No Mother Living Status: Hx Family Endocrine Disorder: Yes (DM) Hx Family Neuromuscular Disorders: Yes Hx Family Neurologic Disorders: Yes Internal Medicine - H&P: Meds RX: Ascorbic Acid [Vitamin C] 500 mg PO DAILY 10/14/16 [History] RX: Cholecalciferol (D-3) [Vitamin D] 1,000 unit PO DAILY 12/30/16 [History] RX: Potassium Chloride [K-Tab ER] 20 meq PO DAILY 03/31/17 [History] RX: Ferrous Sulfate [Iron] 325 mg PO DAILY 02/20/18 [History] RX: Montelukast [Singulair] 10 mg PO DAILY 02/20/18 [History] RX: Pantoprazole Sodium [Protonix] 20 mg PO DAILY 02/20/18 [History] RX: glipiZIDE [Glucotrol] 5 mg PO DAILY 02/20/18 [History] RX: hydrOXYzine HCl [Hydroxyzine HCl] 25 mg PO DAILY PRN 02/20/18 [History] RX: Aspirin Enteric Coated [Aspirin EC] 81 mg PO DAILY 30 Days #30 tablet. 02/23/18 [Rx] RX: Atorvastatin [Lipitor] 20 mg PO HS 30 Days #30 tablet 02/23/18 [Rx] RX: amLODIPine [Norvasc] 5 mg PO DAILY 30 Days #30 tablet 02/23/18 [Rx] Albuterol Sulfate [Ventolin Hfa] 2 puff IH Q4H PRN 05/12/18 [History] Budesonide/Formoterol 160/4.5 [Symbicort 160/4.5] 2 puff IH BIDR 05/12/18 [History] HYDROcodone/Acet 5/325 mg [[place] 5-325 mg] 1 tab PO Q6H PRN 05/12/18 [History] Losartan/Hydrochlorothiazide [Losartan-Hctz 100-25 mg Tab] 1 tab PO DAILY 05/12/18 [History] RX: Furosemide [Lasix] 10 - 20 mg PO 5XW 05/12/18 [History] Allergy/AdvReac Type Severity Reaction Status Date / Time omeprazole [From Prilosec] AdvReac Confusion Verified 05/01/18 08:15 All Systems PM: A 10-system review of systems was performed and is negative for pertinent findings except as documented above in the HPI. - Constitutional Constitutional: falls, weakness, no chills, no fever(s) - EENT Eyes: no blurry vision Ears: no tinnitus - Cardiovascular Cardiovascular ROS IM: lightheadedness, no dyspnea, no dyspnea on exertion, no palpitations - Respiratory Respiratory: no dyspnea, no dyspnea on exertion - Gastrointestinal Gastrointestinal: nausea, vomiting, no abdominal pain - Musculoskeletal Musculoskeletal ROS IM: muscle weakness, numbness, tingling - Neurological Neurological ROS: disequilibrium, dizziness, focal weakness, frequent falls, numbness, paresthesias - Constitutional Vitals: Temp Pulse Resp BP Pulse Ox 98.6 F 60 16 138/53 98 05/12/18 11:00 05/12/18 11:00 05/12/18 13:12 05/12/18 13:12 05/12/18 11:00 Exam: General - No distress, laying in bed, AOx3 HEENT - EOMI, PERRLA, normocephalic atraumatic, mucus membranes moist Cardio - RRR S1S2 no MRG CTA Lungs - CTAB, no wheeze/rhonchi or rales Abd - NTND, no rebound or guarding Skin - intact, no rash or open wound Extremities - strength 5/5 UE and LE Neuro - sensation intact, no FND, CN2-12 intact Psych - appropriate affect and mood Internal Med - H&P Results - Labs CBC & Chem 7: 05/12/18 11:20 05/12/18 11:20 Labs: Short CBC 05/12/18 Range/Units 11:20 WBC 8.4 (4.3-11.1) K/mcL Hgb 11.2 L (11.5-15.4) g/dL Hct 35.5 (35.3-44.9) % Plt Count 221 (140-400) K/mcL Neutrophils # 5.2 (1.6-8.9) K/mcL BMP 05/12/18 11:20 Sodium 142 Potassium 3.1 L Chloride 103 Carbon Dioxide 29 BUN 28 H Creatinine 1.07 Glucose 124 H Calcium 9.6 Cardiac Enzymes 05/12/18 Range/Units 11:20 Troponin I < 0.03 (< 0.04) ng/mL - Impressions ITS Impressions Chest X-Ray 05/12/18 11:05 IMPRESSION: 1. Left basilar airspace disease either due to atelectasis or developing pneumonia. D/ / Fco Fink MD / Fco Fink MD Interpreting Provider: Fco Fink MD - Assessment and plan (1) Syncope Current Visit: Yes Status: Acute Assessment and plan: Pt presented with episode of near syncope at [facility] today Last ECHO was in 2014 - LVEF 55% - moderate LV diastolic dysfxn Carotid US in February 2018 - B/L carotid systems have nonstenotic plaque Does not appear to be cardiogenic in origin EKG was negative for ischemia/acute infarct Troponin <0.03 Plan: - neurology consulted, appreciate recommendations - carotid artery ultrasound pending - ECHO pending - differential Poor PO intake Electrolyte imbalance - pt was hypokalemic on admission, was replaced in ER; check magnesium Carcinoid tumor Recent octreotide scan on 05/09 Two foci of radiopharmaceutical accumulation w/in the right hemiabdomen suspicious for residual or recurrent carcinoid 5-HIAA ordered and pending May need hematology/oncology consult Frontal lobe meningioma Although unchanged since 2015, this may be contributing to progressive syncopal/pre-syncopal episodes Qualifiers: Syncope type: unspecified Qualified Code(s): R55 - Syncope and collapse (2) Meningioma Current Visit: No Status: Chronic Assessment and plan: Pre-existing in the frontal lobe - was diagnosed in 2015 - as of February 2018, it has gone unchanged (3) Metastatic carcinoid tumor Current Visit: No Status: Chronic Assessment and plan: See plan as above for syncope (4) Type 2 diabetes mellitus Current Visit: Yes Status: Acute Assessment and plan: Glucose 124 on admission - LDSS - diabetic diet Qualifiers: 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 care home insulin use status Diabetes mellitus complication status: with unspecified complications Qualified Code(s): E11.8 - Type 2 diabetes mellitus with unspecified complications (5) DVT prophylaxis Current Visit: Yes Status: Acute Assessment and plan: SQ heparin (6) HTN (hypertension) Current Visit: No Status: Chronic Assessment and plan: BP 138/53 - continue home meds - on norvasc, lorsartan/hctz Qualifiers: Hypertension type: essential hypertension Qualified Code(s): I10 - Essential (primary) hypertension (7) Hyperlipidemia Current Visit: No Status: Acute Assessment and plan: on Lipitor - continue Qualifiers: Hyperlipidemia type: unspecified Qualified Code(s): E78.5 - Hyperlipidemia, unspecified (8) Hypokalemia Current Visit: No Status: Acute Assessment and plan: Potassium 3.1 on admission - replaced with 40mEq of potassium chloride - check BMP in AM (9) GERD (gastroesophageal reflux disease) Current Visit: No Status: Chronic Assessment and plan: On protonix Qualifiers: Esophagitis presence: esophagitis presence not specified Qualified Code(s): K21.9 - Gastro-esophageal reflux disease without esophagitis (10) Asthma Current Visit: No Status: Chronic Assessment and plan: On singuilar and symbicort -stable - not in acute exacerbation Qualifiers: Asthma severity: mild Asthma persistence: intermittent Asthma complication type: uncomplicated Qualified Code(s): J45.20 - Mild intermittent asthma, uncomplicated (11) Anemia Current Visit: No Status: Chronic Assessment and plan: - chronic - at baseline hemoglobin - continue ferrous sulfate and vitamin C Qualifiers: Anemia type: iron deficiency Iron deficiency anemia type: unspecified iron deficiency Qualified Code(s): D50.9 - Iron deficiency anemia, unspecified - Time Spent With Patient Total time spent is greater than 50% in coordination of care (as documented) at patient's floor/unit and/or counseling patient: less than 15 minutes <Lashonda Rogel - Last Filed: 05/14/18 07:55> Internal Medicine - H&P: HPI History of present illness: Ms. Curry is a 87 year old female All Systems PM: A 10-system review of systems was performed and is negative for pertinent findings except as documented above in the HPI. - Constitutional Vitals: Temp Pulse Resp BP Pulse Ox 98.3 F 51 17 161/66 99 05/14/18 07:12 05/14/18 07:12 05/14/18 07:36 05/14/18 07:12 05/14/18 07:36 Internal Med - H&P Results - Labs CBC & Chem 7: 05/14/18 02:49 05/14/18 02:49 Labs: Short CBC 05/14/18 Range/Units 02:49 WBC 7.0 (4.3-11.1) K/mcL Hgb 10.9 L (11.5-15.4) g/dL Hct 35.9 (35.3-44.9) % Plt Count 218 (140-400) K/mcL Neutrophils # 3.6 (1.6-8.9) K/mcL BMP 05/14/18 02:49 Sodium 140 Potassium 3.6 Chloride 105 Carbon Dioxide 29 BUN 23 Creatinine 1.00 Glucose 123 H Calcium 9.7 - Impressions ITS Impressions Chest X-Ray 05/12/18 11:05 IMPRESSION: 1. Left basilar airspace disease either due to atelectasis or developing pneumonia. D/ / Fco Fink MD / Fco Fink MD Interpreting Provider: Fco Fink MD Echocardiogram 05/12/18 13:45 Impressions: Technically adequate exam. LVEF 60-65%. Mild concentric left ventricular hypertrophy. Mild left ventricular diastolic dysfunction. Mildly calcified aortic valve leaflets. No aortic stenosis. Mild-moderate aortic regurgitation. - Assessment and plan (1) Metastatic carcinoid tumor Current Visit: No Status: Chronic (2) HTN (hypertension) Current Visit: No Status: Chronic Qualifiers: Hypertension type: essential hypertension Qualified Code(s): I10 - Essent ial (primary) hypertension (3) Hyperlipidemia Current Visit: No Status: Chronic Qualifiers: Hyperlipidemia type: unspecified Qualified Code(s): E78.5 - Hyperlipidemia, unspecified (4) Syncope Current Visit: Yes Status: Acute Qualifiers: Syncope type: unspecified Qualified Code(s): R55 - Syncope and collapse (5) Hypokalemia Current Visit: Yes Status: Acute (6) Type 2 diabetes mellitus Current Visit: Yes Status: Acute Qualifiers: Diabetes mellitus care home insulin use: 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 Diabetes mellitus complication status: with unspecified complications Qualified Code(s): E11.8 - Type 2 diabetes mellitus with unspecified complications (7) DVT prophylaxis Current Visit: Yes Status: Acute (8) Meningioma Current Visit: No Status: Chronic (9) GERD (gastroesophageal reflux disease) Current Visit: No Status: Chronic Qualifiers: Esophagitis presence: esophagitis presence not specified Qualified Code(s): K21.9 - Gastro-esophageal reflux disease without esophagitis (10) Asthma Current Visit: No Status: Chronic Qualifiers: Asthma severity: mild Asthma persistence: intermittent Asthma complication type: uncomplicated Qualified Code(s): J45.20 - Mild intermittent asthma, uncomplicated (11) Anemia Current Visit: No Status: Chronic Qualifiers: Anemia type: iron deficiency Iron deficiency anemia type: unspecified iron deficiency Qualified Code(s): D50.9 - Iron deficiency anemia, unspecified - Time Spent With Patient Total time spent is greater than 50% in coordination of care (as documented) at patient's floor/unit and/or counseling patient: - Attending Attestation I personally and independently interviewed and examined the patient , and I reviewed the patient's medical record . I am in agreement with proposed asse ssment and proposed treatment plan. I discussed my findings and recommendation with the patient and answer his questions. The patient's medical records were edited to accurately reflect this encounter.
[2018-05-12] MEDS ORDERED: *HR* HYDROcodone/Acet 5/325 mg TABLET PO PRN (14:28)
[2018-05-12] MEDS ORDERED: hydrOXYzine pamoate 25 MG CAPSULE PO PRN (14:28)
--- NOTE | 2018-05-12 15:17 | Neurology - Consult Note ---
Date of Encounter: 05/12/18 Time of Encounter: 15:14 Assessment and Plan (1) Syncope Current Visit: Yes Status: Acute It seems the patient has experienced an episode of syncope. Apparently she felt lightheaded and was diaphoretic. She was nauseated as well. She did have some heart palpitations therefore feel it is appropriate to consider a cardiogenic component. Also her friends tells me that she is under tremendous amount of stress associated with her grown children moving back home. I am not convinced that this is seizure activity. I would recommend cardiac consultation to rule out a cardiogenic component. I do not feel that EEG is necessary. I will reevaluate her at your request. Qualifiers: Syncope type: unspecified Qualified Code(s): R55 - Syncope and collapse History of Present Illness HPI: The chart was reviewed, the patient was seen and examined. Ms. Curry is a 87 year old female who was known to me from a previous evaluation in February of this year where she was admitted secondary to symptoms of left hemispheric transient ischemia. Today however she was in [facility] at about 10:00 this morning helping out in the [facility] cafeteria. Apparently she was standing in line to get coffee and touched the person in front of her on the shoulder. Apparently she was distressed and started to lose her footing. The friend grabbed her and helped her to the ground. I am told that she did not lose consciousness. Apparently she felt a bit confused but is aware of everything that happened. Currently she is back to her normal baseline. When she was last here a complete neurologic workup was done. MRI scan of the brain did reveal generalized atrophy as well as a right parietal lobe meningioma. There is no generalized tonic-clonic seizure activity associated with this episode. She did not lose bladder or bowel continence. The family friend who is with her today states that she has been under a tremendous amount of stress lately because a few of her children who are grown themselves have moved back home, and none of them are working. But again patient is alert and back to her normal baseline at this time. She did however inform me that she felt as though her heart was beating fast and fluttering at the time of the event. She is diabetic and reports that she had not eaten anything up until that time. Past Med Surg Social Fam HX - Past Medical History Medical history: asthma, cancer, CHF, CVA, DVT, diabetes, hyperlipidemia, hypertension, renal disease, other Additional medical history: [place] Filter. Stomach CA Psychiatric history: no psych history - Past Surgical History Surgical History: BUD/BSO Additional surgical history: shoulder surgery, roman filter, back surgery - Social History Smoking Status: Never smoker Smokeless Tobacco Status: No Alcohol use: none Drug use: none - Family History Mother Living Status: Hx Family Endocrine Disorder: Yes (DM) Hx Family Neuromuscular Disorders: Yes Hx Family Neurologic Disorders: Yes Father Adopted: No Family Member Ethnicity: Non- Living Status: Hx Family Cardiac Disorders: No Hx Family Respiratory Disorders: Yes (lung cancer) Hx Family Cancer: Yes (LUNG) Hx Family GI Disorders: No Hx Family Endocrine Disorder: No Hx Family Neuromuscular Disorders: No Hx Family Neurologic Disorders: No Hx Family HEENT Disorders: No Hx Family Autoimmune Disorders: No Medications and Allergies Ascorbic Acid [Vitamin C] 500 mg PO DAILY 10/14/16 [History] Cholecalciferol (D-3) [Vitamin D] 1,000 unit PO DAILY 12/30/16 [History] Potassium Chloride [K-Tab ER] 20 meq PO DAILY 03/31/17 [History] Ferrous Sulfate [Iron] 325 mg PO DAILY 02/20/18 [History] Montelukast [Singulair] 10 mg PO DAILY 02/20/18 [History] Pantoprazole Sodium [Protonix] 20 mg PO DAILY 02/20/18 [History] glipiZIDE [Glucotrol] 5 mg PO DAILY 02/20/18 [History] hydrOXYzine HCl [Hydroxyzine HCl] 25 mg PO DAILY PRN 02/20/18 [History] Aspirin Enteric Coated [Aspirin EC] 81 mg PO DAILY 30 Days #30 tablet.dr 02/23/18 [Rx] Atorvastatin [Lipitor] 20 mg PO HS 30 Days #30 tablet 02/23/18 [Rx] amLODIPine [Norvasc] 5 mg PO DAILY 30 Days #30 tablet 02/23/18 [Rx] Albuterol Sulfate [Ventolin Hfa] 2 puff IH Q4H PRN 05/12/18 [History] Budesonide/Formoterol 160/4.5 [Symbicort 160/4.5] 2 puff IH BIDR 05/12/18 [History] Furosemide [Lasix] 10 - 20 mg PO 5XW 05/12/18 [History] HYDROcodone/Acet 5/325 mg [[place] 5-325 mg] 1 tab PO Q6H PRN 05/12/18 [History] Losartan/Hydrochlorothiazide [Losartan-Hctz 100-25 mg Tab] 1 tab PO DAILY 05/12/18 [History] Allergy/AdvReac Type Severity Reaction Status Date / Time omeprazole [From Prilosec] AdvReac Confusion Verified 05/01/18 08:15 All Systems: The remainder of the systems were reviewed and are negative Review of Systems: The balance of the systems review is negative. Physical Examination - Vital Signs Vital Signs: Initial Vital Signs Temp Pulse Resp BP Pulse Ox 98.6 F 60 16 159/56 98 05/12/18 11:00 05/12/18 11:00 05/12/18 11:00 05/12/18 11:00 05/12/18 11:00 Results - Laboratory Findings CBC and BMP: 05/12/18 11:20 05/12/18 11:20 Abnormal lab findings: Abnormal lab results Hgb 11.2 g/dL (11.5-15.4) L 05/12/18 11:20 MCV 82.4 fL (83.0-100.0) L 05/12/18 11:20 MCH 26.0 pg (28.0-33.3) L 05/12/18 11:20 MCHC 31.5 g/dL (31.6-35.5) L 05/12/18 11:20 RDW 15.2 % (11.5-14.5) H 05/12/18 11:20 Potassium 3.1 mEq/L (3.5-5.1) L 05/12/18 11:20 BUN 28 mg/dL (8-23) H 05/12/18 11:20 Est GFR ( Amer) 59 (> 60) L 05/12/18 11:20 Est GFR (Non-Af Amer) 49 (> 60) L 05/12/18 11:20 Glucose 124 mg/dL (70-105) H 05/12/18 11:20 Calculated Osmolality 301 (280-300) H 05/12/18 11:20 Consult Discharge Plan - Plan Referrals: Antwan Tucker Jr, MD [Primary Care Provider] -
[2018-05-12] MEDS: Insulin LISPRO 300 UNITS/3 ML VIAL SQ SCH ×2 (17:30→20:13)
[2018-05-12] MEDS: *HR* Heparin 5,000 UNIT/ML VIAL SQ SCH (19:59)
[2018-05-12] MEDS: Budesonide/Formoterol 160/4.5 1 PUFF INH IH SCH (20:20)
[2018-05-13 03:53] LABS: Basophils # 0.1 K/mcL (0.0-0.2); Basophils % 0.7 %; Eosinophils # 0.3 K/mcL (0.0-0.6); Eosinophils % 4.7 %; Hematocrit 33.6 % (35.3-44.9); Hemoglobin 10.4 g/dL (11.5-15.4); Immature Granulocytes % 0.3 % (0-4); Lymphocytes # 2.2 K/mcL (0.6-4.6); Lymphocytes % 29.8 %; Mean Corpuscular Hemoglobin 25.4 pg (28.0-33.3); Mean Platelet Volume 11.1 fL (9.4-12.4); Monocytes # 0.6 K/mcL (0.0-1.3); Monocytes % 7.6 %; Neutrophils # 4.1 K/mcL (1.6-8.9); Platelet Count 221 K/mcL (140-400); Red Cell Distribution Width 15.5 % (11.5-14.5); Segmented Neutrophils % 56.9 %
[2018-05-13 04:12] LABS: BUN/Creatinine Ratio 27 (6-26); Blood Urea Nitrogen 24 mg/dL (8-23); Calcium 9.3 mg/dL (8.6-10.3); Carbon Dioxide 29 mEq/L (23-29); Chloride 104 mEq/L (98-107); Glucose 145 mg/dL (70-105); Magnesium 2.2 mg/dL (1.6-2.6); Osmolality,Calculated 301 (280-300); Potassium 3.4 mEq/L (3.5-5.1); Sodium 142 mEq/L (136-145); eGFR For Non-African Americans 59 (> 60)
[2018-05-13] MEDS: *HR* Heparin 5,000 UNIT/ML VIAL SQ SCH ×2 (06:12→17:55)
[2018-05-13] MEDS: Budesonide/Formoterol 160/4.5 1 PUFF INH IH SCH ×2 (07:39→21:51)
[2018-05-13] MEDS: Insulin LISPRO 300 UNITS/3 ML VIAL SQ SCH ×4 (07:41→20:34)
[2018-05-13] MEDS: Aspirin Enteric Coated 81 MG Tablet PO SCH (08:58)
[2018-05-13] MEDS: Losartan/HCTZ 50-12.5 TABLET PO SCH (08:58)
[2018-05-13] MEDS: Ascorbic Acid 500 MG TABLET PO SCH (08:58)
[2018-05-13] MEDS: amLODIPine 5 MG TABLET PO SCH (08:58)
[2018-05-13] MEDS: PANTOPRAZOLE SODIUM 20 MG PO SCH (08:59)
--- NOTE | 2018-05-13 09:23 | Internal Med Progress Note ---
<AnderDayday S - Last Filed: 05/13/18 09:19> Hospitalist Progress Note - Encounter Date of Encounter: 05/13/18 Time of Encounter: 09:20 - Subjective Interval History: Ms. Curry is a 87 year old female with PMH of carcinoid tumor, asthma, CVA, T2DM, HDL, and HTN. She presents to the ER today with the c/o almost passing out and h er friend helping her to the ground at [facility]. The pt states that she was standing at [employer] getting coffee and she suddenly felt very flushed, had a cold sweat and felt a "weird sensation" in her stomach. The pt states that she has had this happen multiple times in the past and has a hx of passing out. The pt denies any chest pain, preceding palpitations before feeling like she was about to pass out. She had one episode of vomiting on the way over to the hospital. She had no numbness/tingling, slurred speech, facial droop. She denies any head trauma. The pt does report eating less than usual today. The pt had a negative CT head while in the ER. She was noted to have a potassium of 3.1, which was replaced. EKG was negative for any acute signs of ischemia. The pt reports no overnight events. She states she feels much better, she hasn't had any episodes of lightheadedness or flushing. No chest pain, palpiltations, SOB, abd pain, N/V/D. - Exam Vitals: Temp Pulse Resp BP Pulse Ox 98.0 F 54 16 142/65 95 05/13/18 07:36 05/13/18 07:36 05/13/18 07:39 05/13/18 07:36 05/13/18 07:39 Exam: General - No distress, laying in bed, AOx3 HEENT - EOMI, PERRLA, normocephalic atraumatic, mucus membranes moist Cardio - RRR S1S2 no MRG CTA Lungs - CTAB, no wheeze/rhonchi or rales Abd - NTND, no rebound or guarding Skin - intact, no rash or open wound Extremities - strength 5/5 UE and LE Neuro - sensation intact, no FND, CN2-12 intact Psych - appropriate affect and mood - Assessment and Plan (1) Syncope Current Visit: Yes Status: Acute Assessment and Plan: Pt presented with episode of near syncope at [facility] today Last ECHO was in 2014 - LVEF 55% - moderate LV diastolic dysfxn Carotid US in February 2018 - B/L carotid systems have nonstenotic plaque Does not appear to be cardiogenic in origin EKG was negative for ischemia/acute infarct Troponin <0.03 Plan: - neurology consulted, appreciate recommendations They feel there might be a cardiogenic component to this pt, recommend car diology consult Pt reported palpiltations to neurologist, although she has continued to deny palpiltations to me - carotid artery ultrasound pending - ECHO pending - differential Poor PO intake Electrolyte imbalance - pt was hypokalemic on admission, was replaced in ER; Mg WNL Carcinoid tumor Recent octreotide scan on 05/09 Two foci of radiopharmaceutical accumulation w/in the right hemiabdomen suspicious for residual or recurrent carcinoid 5-HIAA ordered and pending May need hematology/oncology consult Frontal lobe meningioma Although unchanged since 2016, this may be contributing to progressive syncopal/pre-syncopal episodes (2) Meningioma Current Visit: No Status: Chronic Assessment and Plan: Pre-existing in the frontal lobe - was diagnosed in 2015 - as of February 2018, it has gone unchanged (3) Metastatic carcinoid tumor Current Visit: No Status: Chronic Assessment and Plan: See plan as above for syncope (4) Type 2 diabetes mellitus Current Visit: Yes Status: Acute Assessment and Plan: Glucose 145 on admission - LDSS - diabetic diet (5) DVT prophylaxis Current Visit: Yes Status: Acute Assessment and Plan: SQ heparin (6) HTN (hypertension) Current Visit: No Status: Chronic Assessment and Plan: BP 142/65 - continue home meds - on norvasc, lorsartan/hctz (7) Hyperlipidemia Current Visit: No Status: Chronic Assessment and Plan: on Lipitor - continue (8) Hypokalemia Current Visit: Yes Status: Acute Assessment and Plan: Potassium 3.1 on admission, 3.4 today - replaced with 40mEq of potassium chloride - check BMP in AM (9) GERD (gastroesophageal reflux disease) Current Visit: No Status: Chronic Assessment and Plan: On protonix (10) Asthma Current Visit: No Status: Chronic Assessment and Plan: On singuilar and symbicort -stable - not in acute exacerbation (11) Anemia Current Visit: No Status: Chronic Assessment and Plan: - chronic - at baseline hemoglobin - continue ferrous sulfate and vitamin C - Time Spent with Patient Total time spent is greater than 50% in coordination of care (as documented) at patient's floor/unit and/or counseling patient: less than 15 minutes Plan of Care Discussed with: patient Internal Medicine: Result - Labs CBC & Chem 7: 05/13/18 02:50 05/13/18 02:50 Labs: Short CBC 05/12/18 05/13/18 Range/Units 11:20 02:50 WBC 8.4 7.2 (4.3-11.1) K/mcL Hgb 11.2 L 10.4 L (11.5-15.4) g/dL Hct 35.5 33.6 L (35.3-44.9) % Plt Count 221 221 (140-400) K/mcL Neutrophils # 5.2 4.1 (1.6-8.9) K/mcL BMP 05/12/18 05/13/18 11:20 02:50 Sodium 142 142 Potassium 3.1 L 3.4 L Chloride 103 104 Carbon Dioxide 29 29 BUN 28 H 24 H Creatinine 1.07 0.90 Glucose 124 H 145 H Calcium 9.6 9.3 Cardiac Enzymes 05/12/18 Range/Units 11:20 Troponin I < 0.03 (< 0.04) ng/mL - ABG Interpretation ABG results: PT/INR, D-dimer PT 11.5 Seconds (9.4-12.1) 05/12/18 11:20 - Impressions Impressions Chest X-Ray 05/12/18 11:05 IMPRESSION: 1. Left basilar airspace disease either due to atelectasis or developing pneumonia. D/ / Fco Fink MD / Fco Fink MD Interpreting Provider: Fco Fink MD Consult Discharge Plan - Plan Referrals: Antwan Tucker Jr, MD [Primary Care Provider] - <Jessica Hdez - Last Filed: 05/13/18 20:17> Hospitalist Progress Note - Exam Vitals: Temp Pulse Resp BP Pulse Ox 98.3 F 62 14 132/56 97 10/28/18 18:52 05/13/18 18:52 05/13/18 18:52 05/13/18 18:52 05/13/18 18:52 - Assessment and Plan (1) Metastatic carcinoid tumor Current Visit: No Status: Chronic (2) HTN (hypertension) Current Visit: No Status: Chronic (3) Hyperlipidemia Current Visit: No Status: Chronic (4) Syncope Current Visit: Yes Status: Acute (5) Hypokalemia Current Visit: Yes Status: Acute (6) Type 2 diabetes mellitus Current Visit: Yes Status: Acute (7) DVT prophylaxis Current Visit: Yes Status: Acute (8) Meningioma Current Visit: No Status: Chronic (9) GERD (gastroesophageal reflux disease) Current Visit: No Status: Chronic (10) Asthma Current Visit: No Status: Chronic (11) Anemia Current Visit: No Status: Chronic - Time Spent with Patient Total time spent is greater than 50% in coordination of care (as documented) at patient's floor/unit and/or counseling patient: Internal Medicine: Result - Labs CBC & Chem 7: 05/13/18 02:50 05/13/18 02:50 Labs: Short CBC 05/13/18 Range/Units 02:50 WBC 7.2 (4.3-11.1) K/mcL Hgb 10.4 L (11.5-15.4) g/dL Hct 33.6 L (35.3-44.9) % Plt Count 221 (140-400) K/mcL Neutrophils # 4.1 (1.6-8.9) K/mcL BMP 05/13/18 02:50 Sodium 142 Potassium 3.4 L Chloride 104 Carbon Dioxide 29 BUN 24 H Creatinine 0.90 Glucose 145 H Calcium 9.3 - ABG Interpretation ABG results: PT/INR, D-dimer PT 11.5 Seconds (9.4-12.1) 05/12/18 11:20 - Impressions Impressions Echocardiogram 05/12/18 13:45 Impressions: Technically adequate exam. LVEF 60-65%. Mild concentric left ventricular hypertrophy. Mild left ventricular diastolic dysfunction. Mildly calcified aortic valve leaflets. No aortic stenosis. Mild-moderate aortic regurgitation. - Attending Attestation I examined this patient and my medical decision-making was reviewed with the Resident Physician. I agree with the documented findings, disposition and treatment plan as described except to the extent set forth below. <Dayday Worthington - Last Filed: 05/13/18 09:19> (1) Syncope Qualifiers: Syncope type: unspecified Qualified Code(s): R55 - Syncope and collapse (4) Type 2 diabetes mellitus Qualifiers: Diabetes mellitus manager long term care insulin use: unspecified manager long term care insulin use status Diabetes mellitus complication status: with unspecified complications Qualified Code(s): E11.8 - Type 2 diabetes mellitus with unspecified complications (6) HTN (hypertension) Qualifiers: Hypertension type: essential hypertension Qualified Code(s): I10 - Essential (primary) hypertension (7) Hyperlipidemia Qualifiers: Hyperlipidemia type: unspecified Qualified Code(s): E78.5 - Hyperlipidemia, unspecified (9) GERD (gastroesophageal reflux disease) Qualifiers: Esophagitis presence: esophagitis presence not specified Qualified Code(s): K21.9 - Gastro-esophageal reflux disease without esophagitis (10) Asthma Qualifiers: Asthma severity: mild Asthma persistence: intermittent Asthma complication type: uncomplicated Qualified Code(s): J45.20 - Mild intermittent asthma, uncomplicated (11) Anemia Qualifiers: Anemia type: iron deficiency Iron deficiency anemia type: unspecified iron deficiency Qualified Code(s): D50.9 - Iron deficiency anemia, unspecified <Ghanem,Sharon Rheem - Last Filed: 05/13/18 20:17> (2) HTN (hypertension) Qualifiers: Hypertension type: essential hypertension Qualified Code(s): I10 - Essential (primary) hypertension (3) Hyperlipidemia Qualifiers: Hyperlipidemia type: unspecified Qualified Code(s): E78.5 - Hyperlipidemia, unspecified (4) Syncope Qualifiers: Syncope type: unspecified Qualified Code(s): R55 - Syncope and collapse (6) Type 2 diabetes mellitus Qualifiers: Diabetes mellitus nursing home insulin use: unspecified nursing home insulin use status Diabetes mellitus complication status: with unspecified complications Qualified Code(s): E11.8 - Type 2 diabetes mellitus with unspecified complications (9) GERD (gastroesophageal reflux disease) Qualifiers: Esophagitis presence: esophagitis presence not specified Qualified Code(s): K21.9 - Gastro-esophageal reflux disease without esophagitis (10) Asthma Qualifiers: Asthma severity: mild Asthma persistence: intermittent Asthma complication type: uncomplicated Qualified Code(s): J45.20 - Mild intermittent asthma, uncomplicated (11) Anemia Qualifiers: Anemia type: iron deficiency Iron deficiency anemia type: unspecified iron deficiency Qualified Code(s): D50.9 - Iron deficiency anemia, unspecified
[2018-05-14 03:40] LABS: Basophils % 0.6 %; Eosinophils # 0.4 K/mcL (0.0-0.6); Eosinophils % 5.5 %; Hematocrit 35.9 % (35.3-44.9); Hemoglobin 10.9 g/dL (11.5-15.4); Immature Granulocytes % 0.6 % (0-4); Lymphocytes # 2.5 K/mcL (0.6-4.6); Lymphocytes % 35.7 %; Mean Corpuscular HGB Conc 30.4 g/dL (31.6-35.5); Mean Corpuscular Hemoglobin 25.3 pg (28.0-33.3); Mean Corpuscular Volume 83.3 fL (83.0-100.0); Mean Platelet Volume 10.9 fL (9.4-12.4); Monocytes # 0.5 K/mcL (0.0-1.3); Monocytes % 6.8 %; Neutrophils # 3.6 K/mcL (1.6-8.9); Platelet Count 218 K/mcL (140-400); Red Blood Count 4.31 M/mcL (3.82-4.97); Red Cell Distribution Width 15.3 % (11.5-14.5); Segmented Neutrophils % 50.8 %
[2018-05-14 03:58] LABS: BUN/Creatinine Ratio 23 (6-26); Blood Urea Nitrogen 23 mg/dL (8-23); Calcium 9.7 mg/dL (8.6-10.3); Carbon Dioxide 29 mEq/L (23-29); Chloride 105 mEq/L (98-107); Glucose 123 mg/dL (70-105); Osmolality,Calculated 295 (280-300); Potassium 3.6 mEq/L (3.5-5.1); Sodium 140 mEq/L (136-145); eGFR For Non-African Americans 52 (> 60)
[2018-05-14] MEDS: *HR* Heparin 5,000 UNIT/ML VIAL SQ SCH (05:27)
[2018-05-14] MEDS: Budesonide/Formoterol 160/4.5 1 PUFF INH IH SCH (07:34)
--- NOTE | 2018-05-14 09:56 | Discharge Summary ---
<Raissa Shipman N - Last Filed: 05/14/18 13:11> - NOTES TO OUTPATIENT PROVIDER Notes to Outpatient Provider: Follow-up for resolution of symtpoms, metastatic carcinoid, and meningioma. Orders not resulted at time of discharge: Pending orders 05/12/18 13:45 5-HIAA,[facility] [place] or 24hr Routine Date of Encounter: 05/14/18 Time of Encounter: 09:54 - Discharge Diagnosis (1) Syncope Priority: Primary Status: Acute Qualifiers: Syncope type: unspecified Qualified Code(s): R55 - Syncope and collapse (2) HTN (hypertension) Priority: Secondary Status: Chronic Qualifiers: Hypertension type: essential hypertension Qualified Code(s): I10 - Essential (primary) hypertension (3) DVT prophylaxis Priority: Secondary Status: Acute (4) Hypokalemia Priority: Secondary Status: Acute (5) Hyperlipidemia Priority: Secondary Status: Acute Qualifiers: Hyperlipidemia type: mixed hyperlipidemia Qualified Code(s): E78.2 - Mixed hyperlipidemia (6) Type 2 diabetes mellitus Priority: Secondary Status: Acute Qualifiers: Diabetes mellitus exterminator helper insulin use: unspecified detention insulin use status Diabetes mellitus complication status: with unspecified complications Qualified Code(s): E11.8 - Type 2 diabetes mellitus with unspecified complications (7) Meningioma Priority: Secondary Status: Chronic (8) Asthma Priority: Secondary Status: Chronic Qualifiers: Asthma severity: mild Asthma persistence: intermittent Asthma complication type: uncomplicated Qualified Code(s): J45.20 - Mild intermittent asthma, uncomplicated (9) Metastatic carcinoid tumor Priority: Secondary Status: Chronic (10) Anemia Priority: Secondary Status: Chronic Qualifiers: Anemia type: unspecified type Qualified Code(s): D64.9 - Anemia, unspecified (11) Moderate aortic regurgitation Priority: Secondary Status: Acute (12) GERD (gastroesophageal reflux disease) Priority: Secondary Status: Chronic Qualifiers: Esophagitis presence: esophagitis presence not specified Qualified Code(s): K21.9 - Gastro-esophageal reflux disease without esophagitis Hospital course: Ms. Curry is a 87 year old female with a PMHx of T2DM, HTN, HDL, asthma, and carcinoid tumor who presented to the ED on 05/12/18 [place] almost [facility] out at [employer]. Pt said she was standing at [employer] and had a sudden onset of feeling flushed, abdominal pain, and diaphoresis. Her friend helped her to the ground. Pt denies actually passing out. Pt states she has had this multiple times in the past. She denied any CP, palpitations but did have one episode of vomiting en route to the hospital. In the ER, pt had a negative CT head. She was found to have a potassium of 3.1 which was replaced. EKG negative for ischemia. Hospital Course: Neurology was consulted and recommended cardiology consult and did not recommend EEG. EKG was negative for ischemia/infarct and troponins <0.03. ECHO 05/13 showed: -LVEF 60-65% -mild LV diastolic dysfunction -mild calcified aortic valve leaflets -mild-moderate AR US carotid arteries 05/13 showed: -bilateral carotid arteries have minimal plaque throughout Cardiology recommended orthostatic BP's. If negative, cardiology recommended an event monitor and outpatient EP referral. Orthostatics were negative. Recent octreotide scan on 05/09 showed 2 foci of radiopharmaceutical accumulation w/in the right hemiabdomen suspicious for residual or recurrent carcinoid. 5-HIAA pending. Frontal lobe meningioma unchanged since 2015. On 05/14, pt admitted she did not drink much fluids on 05/11, the day prior to admission and pre-syncopal event. Pt states she thinks it was from dehydration. Discharge discussed with: patient Time spent discussing smoking cessation with patient: 3 to 10 minutes - Time Spent with Patient Total time spent providing and/or coordinating discharge services: Less than 30 minutes - Discharge Medications Home Medications: Ascorbic Acid [Vitamin C] 500 mg PO DAILY 10/14/16 [History] Cholecalciferol (D-3) [Vitamin D] 1,000 unit PO DAILY 12/30/16 [History] Potassium Chloride [K-Tab ER] 20 meq PO DAILY 03/31/17 [History] Ferrous Sulfate [Iron] 325 mg PO DAILY 02/20/18 [History] Montelukast [Singulair] 10 mg PO DAILY 02/20/18 [History] Pantoprazole Sodium [Protonix] 20 mg PO DAILY 02/20/18 [History] glipiZIDE [Glucotrol] 5 mg PO DAILY 02/20/18 [History] hydrOXYzine HCl [Hydroxyzine HCl] 25 mg PO DAILY PRN 02/20/18 [History] Aspirin Enteric Coated [Aspirin EC] 81 mg PO DAILY 30 Days #30 tablet. 02/23/18 [Rx] Atorvastatin [Lipitor] 20 mg PO HS 30 Days #30 tablet 02/23/18 [Rx] amLODIPine [Norvasc] 5 mg PO DAILY 30 Days #30 tablet 02/23/18 [Rx] Albuterol Sulfate [Ventolin Hfa] 2 puff IH Q4H PRN 05/12/18 [History] Budesonide/Formoterol 160/4.5 [Symbicort 160/4.5] 2 puff IH BIDR 05/12/18 [History] Furosemide [Lasix] 10 - 20 mg PO 5XW 05/12/18 [History] HYDROcodone/Acet 5/325 mg [[place] 5-325 mg] 1 tab PO Q6H PRN 05/12/18 [History] Losartan/Hydrochlorothiazide [Losartan-Hctz 100-25 mg Tab] 1 tab PO DAILY 05/12/18 [History] Allergies/Adverse Reactions: Allergy/AdvReac Type Severity Reaction Status Date / Time omeprazole [From Prilosec] AdvReac Confusion Verified 05/01/18 08:15 Date of admission: 05/12/18 12:51 Primary care physician: Antwan Tucker Jr, MD Consults: 05/12/18 13:45 Consult to Neurology [CONS] Routine Consulting Provider: [facility] Reason for Consult: presyncope Call Completed: No 05/13/18 09:22 Consult to Cardiology [CONS] Routine Comment: Consulting Provider: [facility] Reason for Consult: syncope Call Completed: No Discharging clinician: Jessica Hdez Anticipated date of discharge: 05/14/18 - Constitutional Vitals: Temp Pulse Resp BP Pulse Ox 98.3 F 51 17 161/66 99 05/14/18 07:12 05/14/18 07:12 05/14/18 07:36 05/14/18 07:12 05/14/18 07:36 General appearance: Present: cooperative, pleasant, no acute distress, answers questions appropriately Exam: General - No distress, laying in bed, AOx3 HEENT - EOMI, PERRLA, normocephalic atraumatic, mucus membranes moist Cardio - RRR S1S2 no MRG CTA Lungs - CTAB, no wheeze/rhonchi or rales Abd - NTND, no rebound or guarding Skin - intact, no rash or open wound Extremities - strength 5/5 UE and LE Neuro - sensation intact, no FND, CN2-12 intact Psych - appropriate affect and mood - Head Head exam: Present: atraumatic, normal inspection, normocephalic - Respiratory Respiratory exam: Present: CTAB. Absent: accessory muscle use, rales, resp iratory distress, rhonchi, wheezes, tachypnea - Cardiovascular Cardiovascular exam: Present: bradycardia, RRR, +S1, +S2 - GI/Abdominal GI/Abdominal exam: Present: normal bowel sounds, soft, no peritoneal signs. Absent: distended, guarding, rebound, tenderness - Extremities Exam Extremities exam: Present: normal inspection, warm. Absent: calf tenderness, cyanotic, pedal edema - Skin Skin exam: Present: intact - Patient Status Disposition: Home, Self-Care Condition: Fair Functional capacity at discharge: uses cane/walker Overall status at discharge: patient is progressing back to baseline - Discharge Instructions Follow Up With: Antwan Tucker Jr, MD [Primary Care Provider] - 05/18/18 1:00 pm (You will see Fanny Trujillo.) - Diet and Activity Activity: increase activity as tolerated Diet: diabetic diet <Jessica Hdez - Last Filed: 05/15/18 01:14> Orders not resulted at time of discharge: Pending orders 05/12/18 13:45 5-HIAA,[facility] [place] or 24hr Routine - Discharge Diagnosis (1) Metastatic carcinoid tumor Status: Chronic (2) HTN (hypertension) Status: Chronic Qualifiers: Hypertension type: essential hypertension Qualified Code(s): I10 - Essential (primary) hypertension (3) Hyperlipidemia Status: Chronic Qualifiers: Hyperlipidemia type: unspecified Qualified Code(s): E78.5 - Hyperlipidemia, unspecified (4) Syncope Status: Acute Qualifiers: Syncope type: unspecified Qualified Code(s): R55 - Syncope and collapse (5) Hypokalemia Status: Acute (6) Type 2 diabetes mellitus Status: Acute Qualifiers: Diabetes mellitus detention insulin use: unspecified exterminator helper insulin use status Diabetes mellitus complication status: with unspecified complications Qualified Code(s): E11.8 - Type 2 diabetes mellitus with unspecified complications (7) DVT prophylaxis Status: Acute (8) Meningioma Status: Chronic (9) GERD (gastroesophageal reflux disease) Status: Chronic Qualifiers: Esophagitis presence: esophagitis presence not specified Qualified Code(s): K21.9 - Gastro-esophageal reflux disease without esophagitis (10) Asthma Status: Chronic Qualifiers: Asthma severity: mild Asthma persistence: intermittent Asthma complication type: uncomplicated Qualified Code(s): J45.20 - Mild intermittent asthma, uncomplicated (11) Anemia Status: Chronic Qualifiers: Anemia type: iron deficiency Iron deficiency anemia type: unspecified iron deficiency Qualified Code(s): D50.9 - Iron deficiency anemia, unspecified Hospital course: Ms. Curry is a 87 year old female - Time Spent with Patient Total time spent providing and/or coordinating discharge services: Date of admission: 05/12/18 12:51 Primary care physician: Antwan Tucker Jr, MD Consults: 05/12/18 13:45 Consult to Neurology [CONS] Routine Consulting Provider: [facility] Reason for Consult: presyncope Call Completed: No 05/13/18 09:22 Consult to Cardiology [CONS] Routine Comment: Consulting Provider: [facility] Reason for Consult: syncope Call Completed: No - Constitutional Vitals: Temp Pulse Resp BP Pulse Ox 98.0 F 55 16 158/57 97 05/14/18 12:06 05/14/18 12:06 05/14/18 12:06 05/14/18 12:06 05/14/18 12:06 - Attending Attestation I examined this patient and my medical decision-making was reviewed with the Resident Physician. I agree with the documented findings, disposition and treatment plan as described except to the extent set forth below.
[2018-05-14] MEDS: Losartan/HCTZ 50-12.5 TABLET PO SCH (10:04)
[2018-05-14] MEDS: Ascorbic Acid 500 MG TABLET PO SCH (10:04)
[2018-05-14] MEDS: amLODIPine 5 MG TABLET PO SCH (10:04)
[2018-05-14] MEDS: Aspirin Enteric Coated 81 MG Tablet PO SCH (10:04)
[2018-05-14] MEDS: PANTOPRAZOLE SODIUM 20 MG PO SCH (10:08)
[2018-05-14] MEDS: Insulin LISPRO 300 UNITS/3 ML VIAL SQ SCH ×2 (10:10→12:15)
--- NOTE | 2018-05-14 11:26 | Cardiology Consult Note ---
<Melita Mars - Last Filed: 05/14/18 10:56> Date of Encounter: 05/14/18 Time of Encounter: 08:30 Assessment and Plan (1) Near syncope Status: Acute Per cardiology: -Presents with near syncopal event at [facility]. -Reports palpitations,fluttering during event. -TTE with LVEF preserved, mild concentric LVH, mild diastolic dysfunction, mildly calcified AV leaflets, mild-moderate AR, no wall motion abnormalities noted. -ECG with SR. -Will check orthostatic vital signs. -If orthostatic vital signs negative, will send home with 30 day event monitor and OP referral to EP. (2) Sinus bradycardia Status: Acute Per cardiology: -SB noted per tele, average HR 50s. -Denies current dizziness, lightheadedness. -Noted 2.3 second sinus pause, nocturnal. Reviewed with . -Again as above. Discussed and reviewed with , If orthostatic vital signs negative, will order 30 day event monitor. -Will refer to OP EP if orthostatic vital signs negative. Discussion w patient/family: The assessment and plan as outlined above was discussed with the patient who expressed understanding and agreement. All questions were answered. Thank you for involving us in the care of your patient. Please call with any questions. Discussed and reviewed with . History of Present Illness Consult date: 05/13/18 Requesting physician: Dayday Worthington Consult reason: syncope Chief complaint: dizziness History of present illness: Ms. Curry is a 87 year old female with a relevant past medical history of lymphoma, asthma, dierticulosis, DVT s/p IVC filter, previous MRSA infections, HTN, GERD, RA, CVA who presented to [facility] with complaints of near syncopal event. Patient states yesterday while at [employer] was standing, making a cup of coffee when he felt dizzy, lightheaded. States she felt like she was going to pass out. Denies syncope. Denies loss of bowel or bladder. Reports has had about 3 episodes similar to this in the past, states last was about a year ago. Patient denies chest pain or shortness of breath. Does report she felt palpitations at time of event. Denies palpitations otherwise. Patient states symptoms are resolved currently. Past Med Surg Social Fam HX - Past Medical History Attestation: Yes The following information was validated with the patient. Source: patient, old records reviewed Medical history: asthma, cancer, CHF, CVA, DVT, diabetes, hyperlipidemia, hypertension, renal disease, other Additional medical history: Meredith Filter. Stomach CA Psychiatric history: no psych history - Past Surgical History Surgical History: BUD/BSO Additional surgical history: shoulder surgery, roman filter, back surgery - Social History Smoking Status: Never smoker Smokeless Tobacco Status: No Alcohol use: none Drug use: none - Family History Mother Living Status: Hx Family Endocrine Disorder: Yes (DM) Hx Family Neuromuscular Disorders: Yes Hx Family Neurologic Disorders: Yes Father Adopted: No Family Member Ethnicity: Non- Living Status: Hx Family Cardiac Disorders: No Hx Family Respiratory Disorders: Yes (lung cancer) Hx Family Cancer: Yes (LUNG) Hx Family GI Disorders: No Hx Family Endocrine Disorder: No Hx Family Neuromuscular Disorders: No Hx Family Neurologic Disorders: No Hx Family HEENT Disorders: No Hx Family Autoimmune Disorders: No Medications and Allergies RX: Ascorbic Acid [Vitamin C] 500 mg PO DAILY 10/14/16 [History] RX: Cholecalciferol (D-3) [Vitamin D] 1,000 unit PO DAILY 12/30/16 [History] RX: Potassium Chloride [K-Tab ER] 20 meq PO DAILY 03/31/17 [History] RX: Ferrous Sulfate [Iron] 325 mg PO DAILY 02/20/18 [History] RX: Montelukast [Singulair] 10 mg PO DAILY 02/20/18 [History] RX: Pantoprazole Sodium [Protonix] 20 mg PO DAILY 02/20/18 [History] RX: glipiZIDE [Glucotrol] 5 mg PO DAILY 02/20/18 [History] RX: hydrOXYzine HCl [Hydroxyzine HCl] 25 mg PO DAILY PRN 02/20/18 [History] RX: Aspirin Enteric Coated [Aspirin EC] 81 mg PO DAILY 30 Days #30 tablet. 02/23/18 [Rx] RX: Atorvastatin [Lipitor] 20 mg PO HS 30 Days #30 tablet 02/23/18 [Rx] RX: amLODIPine [Norvasc] 5 mg PO DAILY 30 Days #30 tablet 02/23/18 [Rx] Albuterol Sulfate [Ventolin Hfa] 2 puff IH Q4H PRN 05/12/18 [History] Budesonide/Formoterol 160/4.5 [Symbicort 160/4.5] 2 puff IH BIDR 05/12/18 [History] HYDROcodone/Acet 5/325 mg [[place] 5-325 mg] 1 tab PO Q6H PRN 05/12/18 [History] Losartan/Hydrochlorothiazide [Losartan-Hctz 100-25 mg Tab] 1 tab PO DAILY 05/12/18 [History] RX: Furosemide [Lasix] 10 - 20 mg PO 5XW 05/12/18 [History] Allergy/AdvReac Type Severity Reaction Status Date / Time omeprazole [From Prilosec] AdvReac Confusion Verified 05/01/18 08:15 All Systems Review: The remainder of the systems were reviewed and are negative - Cardiovascular Cardiovascular: as per HPI, lightheadedness, palpitations Physical Examination Vital Signs, Last 4 Hours Temp Pulse Resp BP Pulse Ox 05/14/18 07:36 17 99 05/14/18 07:12 98.3 F 51 16 161/66 98 General: Conversant, No Apparent Distress HEENT: Atraumatic, Normocephaly, Mucus Membranes Moist Neck: No JVD, Normal carotid pulses Cardiac: Reg Rate and Rhythm, Normal S1 and S2, No Murmur Lungs: Normal Breath Sounds, No Wheeze, Rales, Rhonchi Neuro: Alert and responsive, No focal deficits noted Abdomen: Soft, Non-Tender Skin: No rashes noted on visualized skin Musculoskeletal: No Chest Wall Tenderness Extremities: No Clubbing, No Cyanosis, No Edema, Normal Pulses Results 05/14/18 02:49 05/14/18 02:49 Lab Results Impressions Echocardiogram 05/12/18 13:45 Impressions: Technically adequate exam. LVEF 60-65%. Mild concentric left ventricular hypertrophy. Mild left ventricular diastolic dysfunction. Mildly calcified aortic valve leaflets. No aortic stenosis. Mild-moderate aortic regurgitation. Active Medications Hydrocodone Bitart/Acetaminophen ([place] 5-325 Mg) 1 tab PO Q6H PRN PRN Reason: Pain Stop: 11/11/18 14:29 Albuterol Sulfate (Albuterol Inhaler) 2 puff IH T9ICATL PRN PRN Reason: Dyspnea Stop: 11/11/18 14:29 Amlodipine Besylate (Norvasc) 5 mg PO DAILY NATHANIEL; Protocol Stop: 11/12/18 09:01 Last Admin: 05/14/18 10:04 Dose: 5 mg Ascorbic Acid (Vitamin C) 500 mg PO DAILY [facility] Stop: 11/12/18 09:01 Last Admin: 05/14/18 10:04 Dose: 500 mg Aspirin (Aspirin Ec) 81 mg PO DAILY [facility] Stop: 11/12/18 09:01 Last Admin: 05/14/18 10:04 Dose: 81 mg Atorvastatin Calcium (Lipitor) 20 mg PO HS [facility] Stop: 11/11/18 21:01 Last Admin: 05/13/18 20:02 Dose: 20 mg Budesonide/Formoterol Fumarate (Symbicort) 2 puff IH BIDR [facility]; Protocol Stop: 11/11/18 22:01 Last Admin: 05/14/18 07:34 Dose: 2 puff Dextrose/Water (Dextrose 50% (Syg)) 25 ml IVP AD PRN PRN Reason: Hypoglycemia Stop: 11/11/18 13:46 Ferrous Sulfate (Ferrous Sulfate) 325 mg PO DAILY [facility] Stop: 11/12/18 09:01 Last Admin: 05/14/18 10:04 Dose: 325 mg Glucagon (Glucagen) 1 mg IM ONCE PRN PRN Reason: Hypoglycemia Stop: 11/11/18 13:46 Glucose (Gluctose) 15 gm PO ONCE PRN PRN Reason: Hypoglycemia Stop: 11/11/18 13:46 Glucose (Gluctose) 30 gm PO ONCE PRN PRN Reason: Hypoglycemia Stop: 11/11/18 13:46 HCTZ/Losartan Potassium (Hyzaar 50/12.5) 2 each PO DAILY [facility] Stop: 11/12/18 09:01 Last Admin: 05/14/18 10:04 Dose: 2 each Heparin Sodium (Porcine) (Heparin) 5,000 unit SQ Q12HCO [facility] Stop: 11/11/18 18:01 Last Admin: 05/14/18 05:27 Dose: 5,000 unit Hydroxyzine Pamoate (Hydroxyzine Pamoate) 25 mg PO DAILY PRN PRN Reason: Rash Dextrose (Dextrose 5%) 1,000 mls @ 100 mls/hr IVC .Q10H PRN PRN Reason: HYPOGLYCEMIA Stop: 11/11/18 13:46 Insulin Human Lispro (Humalog) 0 units SQ HS [facility]; Protocol Stop: 11/11/18 21:01 Last Admin: 05/13/18 20:34 Dose: Not Given Insulin Human Lispro (Humalog) 0 units SQ TIDAC NATHANIEL; Protocol Stop: 11/11/18 16:31 Last Admin: 05/14/18 10:10 Dose: Not Given Montelukast Sodium (Singulair) 10 mg PO HS [facility]ATHANIEL Stop: 11/12/18 09:01 Naloxone HCl (Narcan) 0.4 mg IVP Q2MIN PRN PRN Reason: SEE COMMENTS Stop: 11/11/18 13:43 Pharmacy Profile Note (Patient Taking Own Medication) 0 each PO DAILY NATHANIEL Stop: 11/12/18 09:01 Last Admin: 05/14/18 10:08 Dose: Not Given Laboratory Tests 05/12/18 05/14/18 05/14/18 11:20 02:49 02:49 Hgb 10.9 L Potassium 3.1 L 3.6 Creatinine 1.00 Troponin I < 0.03 - Imaging and Cardiology Chest Xray: report reviewed Echo: report reviewed - EKG Interpretation EKG results cardiology: personally reviewed (ECG with SB, HR 59.), other (Telemetry reviewed with average HR previous 12 hours noted to be 53, SB. PVCs and PACs noted.) Consult Discharge Plan - Plan Referrals: Antwan Tucker Jr, MD [Primary Care Provider] - 05/18/18 1:00 pm (You will see Fanny Trujillo.) <Vida Mancuso - Last Filed: 05/14/18 19:14> - Attending Attestation Patient was seen and evaluated independently by me. Findings, assessment and plan were discussed at length with patient, questions answered. Agree with nurse practitioner's documentation. Addition as follows, 87 yo CF ho HTN, CVA, RA lymphoma, DVT s/p IVCF. P/w recurrent near-syncope while standing with palpitations. Neg orthostatic in hospital. ECG SR. Tele nocturnal pause <3 seconds. TTE nl EF, mild LVH, mild-mod AR. Neg trop. A: near syncope, neurocardiogenic likely, r/o intermittent CHB and tachyarrhtymia P: hydration counter-measure for neurocardiogenic syncope event monitor 4 wks [facility] f/u Vida Mancuso MD, PhD Assessment and Plan Discussion w patient/family: The assessment and plan as outlined above was discussed with the patient and/or family members who expressed understanding and agreement. All questions were answered. Thank you for involving us in the care of your patient. Please call with any questions. History of Present Illness History of present illness: Ms. Curry is a 87 year old female All Systems Review: The remainder of the systems were reviewed and are negative Results 05/14/18 02:49 05/14/18 02:49 Lab Results 05/14/18 05/14/18 02:49 02:49 WBC 7.0 Hgb 10.9 L Hct 35.9 Plt Count 218 Sodium 140 Potassium 3.6 Chloride 105 Carbon Dioxide 29 BUN 23 Creatinine 1.00 Glucose 123 H Calcium 9.7
[2018-05-14 12:11] VITALS: BP 158/57
--- NOTE | 2018-05-18 18:05 | Electrocardiograph Report ---
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
== END 2018-05-14 15:25 | disposition home or self-care (01) ==
LOC: EMEROOARM 10:59 → 3BNU 10:59 → SUATTDRO 12:51 → 3BNU 13:37
PROVIDERS: ADMIT Internal Medicine Nephrology; ATTEND Student in an Organized Health Care Education/Training Program

== ENCOUNTER 2019-04-12 16:40 | Observation (INO) ==
[2019-04-12] MEDS ORDERED: Aspirin 81 MG TAB.CHEW PO ONE (16:57)
[2019-04-12 17:25] LABS: Basophils % 0.6 %; Eosinophils # 0.5 K/mcL (0.0-0.6); Eosinophils % 6.8 %; Hematocrit 39.8 % (35.3-44.9); Hemoglobin 12.3 g/dL (11.5-15.4); Immature Granulocytes % 0.6 % (0-4); Lymphocytes # 1.3 K/mcL (0.6-4.6); Lymphocytes % 18.4 %; Mean Corpuscular HGB Conc 30.9 g/dL (31.6-35.5); Mean Corpuscular Hemoglobin 24.7 pg (28.0-33.3); Mean Corpuscular Volume 80.1 fL (83.0-100.0); Mean Platelet Volume 9.9 fL (9.4-12.4); Monocytes # 0.5 K/mcL (0.0-1.3); Monocytes % 7.1 %; Neutrophils # 4.8 K/mcL (1.6-8.9); Platelet Count 230 K/mcL (140-400); Red Blood Count 4.97 M/mcL (3.82-4.97); Red Cell Distribution Width 17.1 % (11.5-14.5); Segmented Neutrophils % 66.5 %; White Blood Count 7.2 K/mcL (4.3-11.1)
[2019-04-12 17:28] LABS: Bilirubin,Urine Negative (Negative); Blood,Urine Negative (Negative); Clarity,Urine Clear (Clear); Color,Urine Yellow (Yellow); Glucose,Urine (UA) Normal (Normal); Ketones,Urine Negative (Negative); Leukocyte Esterase,Urine Negative (Negative); Nitrite,Urine Negative (Negative); Protein,Urine 30 mg/dL (Neg-Trace); Specific Gravity,Urine 1.011 (1.010-1.025); Urobilinogen,Urine Normal (Normal)
[2019-04-12 17:35] LABS: Activated Partial Thrombo Time 25.7 Seconds (26.0-36.0)
[2019-04-12 17:43] LABS: BUN/Creatinine Ratio 16 (6-26); Blood Urea Nitrogen 20 mg/dL (8-23); Carbon Dioxide 26 mEq/L (23-29); Chloride 103 mEq/L (98-107); Glucose 189 mg/dL (70-105); Osmolality,Calculated 296 (280-300); Potassium 3.4 mEq/L (3.5-5.1); Sodium 139 mEq/L (136-145); eGFR For African Americans 49 (> 60); eGFR For Non-African Americans 40 (> 60)
[2019-04-12 17:44] LABS: Troponin I < 0.03 ng/mL (< 0.04)
[2019-04-12 18:20] LABS: Squamous Epithelial Cell,Urine Few per lpf (None-Few)
[2019-04-12] MEDS ORDERED: Ondansetron 4 MG/2 ML VIAL IVP PRN (20:35)
[2019-04-12] MEDS ORDERED: Naloxone 0.4 MG/ML INJ IVP PRN (20:35)
[2019-04-12] MEDS ORDERED: D5% in Water 1,000 ML IVC PRN (20:52)
[2019-04-12] MEDS ORDERED: Dextrose Gel 15 GM/37.5 ML TUBE PO PRN ×2 (20:52)
[2019-04-12] MEDS ORDERED: *HR* Dextrose 50 % in Water (Syg) 50 ML SYRINGE IVP PRN (20:52)
[2019-04-12] MEDS: 0.9 % Sodium Chloride 1,000 ML IVC SCH (21:46)
[2019-04-12] MEDS: Insulin LISPRO 300 UNITS/3 ML VIAL SQ SCH (21:47)
[2019-04-13] MEDS: 0.9 % Sodium Chloride 1,000 ML IVC SCH (00:45)
[2019-04-13 00:57] LABS: Troponin I < 0.03 ng/mL (< 0.04)
[2019-04-13 02:02] LABS: BUN/Creatinine Ratio 15 (6-26); Blood Urea Nitrogen 16 mg/dL (8-23); Calcium 8.9 mg/dL (8.6-10.3); Carbon Dioxide 28 mEq/L (23-29); Chloride 105 mEq/L (98-107); Glucose 210 mg/dL (70-105); Osmolality,Calculated 299 (280-300); Sodium 141 mEq/L (136-145); eGFR For African Americans 57 (> 60); eGFR For Non-African Americans 47 (> 60)
[2019-04-13 05:10] LABS: Mean Corpuscular HGB Conc 29.3 g/dL (31.6-35.5); Mean Corpuscular Hemoglobin 23.4 pg (28.0-33.3); Mean Corpuscular Volume 79.9 fL (83.0-100.0); Mean Platelet Volume 10.5 fL (9.4-12.4); Platelet Count 181 K/mcL (140-400); Red Blood Count 5.13 M/mcL (3.82-4.97); Red Cell Distribution Width 17.1 % (11.5-14.5); White Blood Count 6.2 K/mcL (4.3-11.1)
[2019-04-13 05:37] LABS: Alanine Aminotransferase 10 Units/L (7-52); Albumin/Globulin Ratio 1.7 (1.1-2.2); Alkaline Phosphatase 86 Units/L (34-104); Aspartate Amino Transferase 18 Units/L (13-39); BUN/Creatinine Ratio 18 (6-26); Bilirubin,Total 0.4 mg/dL (0.3-1.0); Blood Urea Nitrogen 18 mg/dL (8-23); Carbon Dioxide 28 mEq/L (23-29); Chloride 105 mEq/L (98-107); Chol/HDL Ratio 5.3 (0-4.9); Cholesterol 253 mg/dL (< 200); Globulin 2.4 g/dL (2.4-3.5); Glucose 116 mg/dL (70-105); HDL Cholesterol 48 mg/dL (40-59); LDL Cholesterol,Calculated 167 mg/dL (0-99); Magnesium 2.1 mg/dL (1.6-2.6); Osmolality,Calculated 295 (280-300); Phosphorous 3.5 mg/dL (2.7-4.5); Potassium 3.5 mEq/L (3.5-5.1); Sodium 141 mEq/L (136-145); Total Protein 6.4 g/dL (6.4-8.9); Triglycerides 191 mg/dL (< 150); eGFR For African Americans > 60 (> 60); eGFR For Non-African Americans 54 (> 60)
[2019-04-13] MEDS ORDERED: Regadenoson 0.4 MG/5 ML SYRINGE IVP ONE (06:53)
[2019-04-13] MEDS: Insulin LISPRO 300 UNITS/3 ML VIAL SQ SCH ×2 (08:56→12:29)
[2019-04-13] MEDS ORDERED: Aspirin Enteric Coated 81 MG Tablet PO SCH (09:00)
[2019-04-13] MEDS ORDERED: amLODIPine 5 MG TABLET PO SCH (09:00)
[2019-04-13 11:36] VITALS: BP 186/62
== END 2019-04-13 15:33 | disposition home or self-care (01) ==
LOC: EMEROOARM 16:40 → 3BNU 16:40 → SUATTDRO 19:54 → 3BNU 20:22
PROVIDERS: ADMIT Pharmacist; ATTEND Family Medicine

== ENCOUNTER 2019-08-28 09:21 | Observation (INO) ==
[2019-08-28] MEDS ORDERED: *HR* HYDROmorphone 2 MG/ML SYRINGE IVP STA (09:35)
[2019-08-28] MEDS ORDERED: 0.9 % Sodium Chloride 500 ML IVC ONE (09:35)
[2019-08-28] MEDS ORDERED: Ondansetron 4 MG/2 ML VIAL IVP ONE (09:35)
[2019-08-28 10:05] LABS: Basophils # 0.1 K/mcL (0.0-0.2); Basophils % 0.7 %; Eosinophils # 0.4 K/mcL (0.0-0.6); Eosinophils % 5.4 %; Hematocrit 38.8 % (35.3-44.9); Hemoglobin 12.1 g/dL (11.5-15.4); Lymphocytes # 1.3 K/mcL (0.6-4.6); Mean Corpuscular HGB Conc 31.2 g/dL (31.6-35.5); Mean Corpuscular Hemoglobin 24.3 pg (28.0-33.3); Mean Corpuscular Volume 78.1 fL (83.0-100.0); Mean Platelet Volume 10.4 fL (9.4-12.4); Monocytes # 0.6 K/mcL (0.0-1.3); Monocytes % 9.3 %; Neutrophils # 4.3 K/mcL (1.6-8.9); Platelet Count 259 K/mcL (140-400); Red Blood Count 4.97 M/mcL (3.82-4.97); Red Cell Distribution Width 17.2 % (11.5-14.5); Segmented Neutrophils % 63.6 %; White Blood Count 6.7 K/mcL (4.3-11.1)
[2019-08-28 10:23] LABS: Alanine Aminotransferase 9 Units/L (7-52); Albumin 4.1 g/dL (3.5-5.7); Albumin/Globulin Ratio 1.6 (1.1-2.2); Alkaline Phosphatase 103 Units/L (34-104); Aspartate Amino Transferase 14 Units/L (13-39); BUN/Creatinine Ratio 16 (6-26); Bilirubin,Total 0.5 mg/dL (0.3-1.0); Blood Urea Nitrogen 17 mg/dL (8-23); Calcium 9.3 mg/dL (8.6-10.3); Carbon Dioxide 30 mEq/L (23-29); Chloride 103 mEq/L (98-107); Globulin 2.6 g/dL (2.4-3.5); Glucose 130 mg/dL (70-105); Osmolality,Calculated 297 (280-300); Potassium 3.6 mEq/L (3.5-5.1); Sodium 142 mEq/L (136-145); Total Protein 6.7 g/dL (6.4-8.9); eGFR For African Americans > 60 (> 60); eGFR For Non-African Americans 50 (> 60)
[2019-08-28 10:52] LABS: Bilirubin,Urine Negative (Negative); Blood,Urine Negative (Negative); Clarity,Urine Clear (Clear); Color,Urine Yellow (Yellow); Glucose,Urine (UA) Normal (Normal); Ketones,Urine Negative (Negative); Leukocyte Esterase,Urine Negative (Negative); Nitrite,Urine Negative (Negative); PH,Urine 7.5 pH Units (5.0-8.0); Protein,Urine Negative (Neg-Trace); Specific Gravity,Urine 1.014 (1.010-1.025); Urobilinogen,Urine Normal (Normal)
[2019-08-28] MEDS ORDERED: Acetaminophen 325 MG TABLET PO PRN (11:00)
[2019-08-28] MEDS ORDERED: Ondansetron 4 MG/2 ML VIAL IVP PRN (11:00)
[2019-08-28] MEDS ORDERED: Naloxone 0.4 MG/ML INJ IVP PRN (11:00)
[2019-08-28] MEDS ORDERED: Isovue-370 500 ML BOTTLE IVP ONE (11:10)
[2019-08-28] MEDS ORDERED: D5% in Water 1,000 ML IVC PRN (12:04)
[2019-08-28] MEDS ORDERED: Dextrose Gel 15 GM/37.5 ML TUBE PO PRN ×2 (12:04)
[2019-08-28] MEDS ORDERED: *HR* Dextrose 50 % in Water (Syg) 50 ML SYRINGE IVP PRN (12:04)
[2019-08-28] MEDS ORDERED: Ipratropium/Albuterol Neb 3 ML IH PRN (12:16)
[2019-08-28] MEDS: amLODIPine 5 MG TABLET PO SCH (12:22)
[2019-08-28] MEDS: *HR* HYDROmorphone 2 MG/ML SYRINGE IVP PRN ×2 (15:02→21:15)
[2019-08-28] MEDS: *HR* Heparin 5,000 UNIT/ML VIAL SQ SCH ×2 (15:02→21:15)
[2019-08-28] MEDS: Insulin LISPRO 300 UNITS/3 ML VIAL SQ SCH (16:33)
[2019-08-29 01:33] LABS: Basophils # 0.1 K/mcL (0.0-0.2); Basophils % 0.6 %; Eosinophils # 0.4 K/mcL (0.0-0.6); Eosinophils % 5.2 %; Hematocrit 37.4 % (35.3-44.9); Hemoglobin 11.6 g/dL (11.5-15.4); Immature Granulocytes % 0.6 % (0-4); Lymphocytes # 1.3 K/mcL (0.6-4.6); Lymphocytes % 15.7 %; Mean Corpuscular Hemoglobin 24.9 pg (28.0-33.3); Mean Corpuscular Volume 80.4 fL (83.0-100.0); Mean Platelet Volume 10.5 fL (9.4-12.4); Monocytes # 0.7 K/mcL (0.0-1.3); Neutrophils # 5.7 K/mcL (1.6-8.9); Platelet Count 239 K/mcL (140-400); Red Blood Count 4.65 M/mcL (3.82-4.97); Red Cell Distribution Width 17.2 % (11.5-14.5); Segmented Neutrophils % 69.9 %; White Blood Count 8.2 K/mcL (4.3-11.1)
[2019-08-29 01:53] LABS: Calcium 9.2 mg/dL (8.6-10.3); Magnesium 2.2 mg/dL (1.6-2.6); Potassium 3.9 mEq/L (3.5-5.1)
[2019-08-29] MEDS: *HR* Heparin 5,000 UNIT/ML VIAL SQ SCH (05:28)
[2019-08-29] MEDS: amLODIPine 5 MG TABLET PO SCH (08:24)
[2019-08-29] MEDS: Insulin LISPRO 300 UNITS/3 ML VIAL SQ SCH (08:24)
[2019-08-29] MEDS ORDERED: Apixaban 5 MG TABLET PO SCH (09:00)
[2019-08-29] MEDS ORDERED: Aspirin Enteric Coated 81 MG Tablet PO SCH (09:00)
[2019-08-29] MEDS ORDERED: Insulin DETEMIR 100 UNIT/ML X5UNITS SQ SCH (09:00)
[2019-08-29] MEDS ORDERED: Furosemide 40 MG TABLET PO SCH (09:00)
[2019-08-29 09:18] VITALS: BP 140/60
[2019-08-29] MEDS ORDERED: Budesonide/Formoterol 160/4.5 1 PUFF INH IH SCH (10:00)
== END 2019-08-29 11:48 | disposition home or self-care (01) ==
LOC: 3BNU 09:21 → EMEROOARM 09:21 → SUATTDRO 10:56 → 3BNU 11:45
PROVIDERS: ADMIT Pharmacist; ATTEND Internal Medicine

== ENCOUNTER 2020-02-29 13:45 | Observation (INO) ==
[2020-02-29] MEDS ORDERED: 0.9 % Sodium Chloride 1,000 ML IVC ONE (13:53)
[2020-02-29] MEDS ORDERED: Ondansetron 4 MG/2 ML VIAL IVP ONE (13:53)
[2020-02-29 14:15] LABS: Basophils % 0.7 %; Eosinophils # 0.1 K/mcL (0.0-0.6); Eosinophils % 0.9 %; Hematocrit 36.4 % (35.3-44.9); Immature Granulocytes % 0.5 % (0-4); Lymphocytes # 1.1 K/mcL (0.6-4.6); Lymphocytes % 19.2 %; Mean Corpuscular HGB Conc 30.2 g/dL (31.6-35.5); Mean Corpuscular Hemoglobin 24.4 pg (28.0-33.3); Mean Corpuscular Volume 80.7 fL (83.0-100.0); Monocytes # 0.9 K/mcL (0.0-1.3); Monocytes % 15.2 %; Neutrophils # 3.6 K/mcL (1.6-8.9); Platelet Count 241 K/mcL (140-400); Red Blood Count 4.51 M/mcL (3.82-4.97); Red Cell Distribution Width 17.6 % (11.5-14.5); Segmented Neutrophils % 63.5 %; White Blood Count 5.7 K/mcL (4.3-11.1)
[2020-02-29 14:37] LABS: Alanine Aminotransferase 10 Units/L (7-52); Albumin 3.8 g/dL (3.5-5.7); Albumin/Globulin Ratio 1.4 (1.1-2.2); Alkaline Phosphatase 82 Units/L (34-104); Aspartate Amino Transferase 19 Units/L (13-39); BUN/Creatinine Ratio 14 (6-26); Bilirubin,Total 0.5 mg/dL (0.3-1.0); Blood Urea Nitrogen 14 mg/dL (8-23); Carbon Dioxide 24 mEq/L (23-29); Chloride 101 mEq/L (98-107); Globulin 2.7 g/dL (2.4-3.5); Glucose 125 mg/dL (70-105); Osmolality,Calculated 284 (280-300); Potassium 3.2 mEq/L (3.5-5.1); Sodium 136 mEq/L (136-145); Total Protein 6.5 g/dL (6.4-8.9); eGFR For African Americans > 60 (> 60); eGFR For Non-African Americans 51 (> 60)
[2020-02-29 14:38] LABS: Troponin I 0.03 ng/mL (< 0.04)
[2020-02-29 15:33] LABS: Adenovirus Not Detected (Not Detect); Bordetella Pertussis Not Detected (Not Detect); Chlamydophila pneumoniae Not Detected (Not Detect); Coronavirus 229E Not Detected (Not Detect); Coronavirus HKU1 Not Detected (Not Detect); Coronavirus NL63 Not Detected (Not Detect); Coronavirus OC43 Not Detected (Not Detect); Human Metapneumovirus Not Detected (Not Detect); Human Rhinovirus/Enterovirus Not Detected (Not Detect); Influenza A Subtype 2009 H1 Not Detected (Not Detect); Influenza B Not Detected (Not Detect); Mycoplasma pneumoniae Not Detected (Not Detect); Parainfluenza Virus 1 Not Detected (Not Detect); Parainfluenza Virus 2 Not Detected (Not Detect); Parainfluenza Virus 3 Not Detected (Not Detect); Parainfluenza Virus 4 Not Detected (Not Detect); Respiratory Syncytial Virus Not Detected (Not Detect)
[2020-02-29 15:38] LABS: Bacteria,Urine Few per hpf (None-Few); Bilirubin,Urine Negative (Negative); Blood,Urine Negative (Negative); Clarity,Urine Turbid (Clear); Color,Urine Light-Yellow (Yellow); Glucose,Urine (UA) Normal (Normal); Ketones,Urine Negative (Negative); Leukocyte Esterase,Urine Negative (Negative); Mucus,Urine Few per lpf (None-Few); Nitrite,Urine Negative (Negative); PH,Urine 6.5 pH Units (5.0-8.0); Protein,Urine Trace mg/dL (Neg-Trace); RBC,Urine 0-3 per hpf (0-3); Specific Gravity,Urine 1.007 (1.010-1.025); Squamous Epithelial Cell,Urine Moderate per hpf (None-Few); Urobilinogen,Urine Normal (Normal); WBC,Urine 0-3 per hpf (0-3)
[2020-02-29] MEDS ORDERED: Ondansetron 4 MG/2 ML VIAL IVP PRN (16:01)
[2020-02-29] MEDS ORDERED: Naloxone 0.4 MG/ML INJ IVP PRN (16:01)
[2020-02-29] MEDS ORDERED: *HR* HYDROcodone/Acet 5/325 mg TABLET PO PRN (16:05)
[2020-02-29] MEDS ORDERED: Dextrose Gel 15 GM/37.5 ML TUBE PO PRN ×2 (16:14)
[2020-02-29] MEDS ORDERED: *HR* Dextrose 50 % in Water (Vial) 50 ML VIAL IVP PRN (16:14)
[2020-02-29] MEDS ORDERED: D5% in Water 1,000 ML IVC PRN (16:14)
[2020-02-29] MEDS ORDERED: Acetaminophen 325 MG TABLET PO PRN (17:13)
[2020-02-29] MEDS: 0.9 % Sodium Chloride 1,000 ML IVC SCH (17:28)
[2020-02-29] MEDS: Azithromycin 500 MG in 0.9 % Sodium Chloride 250 ML IVPB SCH (17:29)
[2020-02-29] MEDS: cefTRIAXone 1,000 MG in Water for inj. (sterile) 10 ML IVP SCH (17:29)
[2020-02-29] MEDS: Insulin LISPRO 300 UNITS/3 ML VIAL SQ SCH (17:45)
[2020-02-29] MEDS ORDERED: amLODIPine 5 MG TABLET PO ONE (20:19)
[2020-02-29] MEDS: Apixaban 5 MG TABLET PO SCH (22:08)
[2020-03-01] MEDS: Insulin LISPRO 300 UNITS/3 ML VIAL SQ SCH ×4 (01:25→20:43)
[2020-03-01] MEDS: 0.9 % Sodium Chloride 1,000 ML IVC SCH (04:47)
[2020-03-01] MEDS: cefTRIAXone 1,000 MG in Water for inj. (sterile) 10 ML IVP SCH (08:30)
[2020-03-01] MEDS: Apixaban 5 MG TABLET PO SCH ×2 (08:30→20:44)
[2020-03-01] MEDS: amLODIPine 5 MG TABLET PO SCH (08:30)
[2020-03-01 08:38] LABS: Basophils % 0.5 %; Eosinophils % 0.5 %; Hematocrit 35.5 % (35.3-44.9); Hemoglobin 10.5 g/dL (11.5-15.4); Immature Granulocytes % 0.5 % (0-4); Lymphocytes # 1.3 K/mcL (0.6-4.6); Lymphocytes % 33.5 %; Mean Corpuscular HGB Conc 29.6 g/dL (31.6-35.5); Mean Corpuscular Hemoglobin 24.4 pg (28.0-33.3); Mean Corpuscular Volume 82.4 fL (83.0-100.0); Monocytes # 0.6 K/mcL (0.0-1.3); Monocytes % 15.2 %; Neutrophils # 1.9 K/mcL (1.6-8.9); Platelet Count 207 K/mcL (140-400); Red Blood Count 4.31 M/mcL (3.82-4.97); Red Cell Distribution Width 17.7 % (11.5-14.5); Segmented Neutrophils % 49.8 %; White Blood Count 3.8 K/mcL (4.3-11.1)
[2020-03-01] MEDS ORDERED: Furosemide 40 MG TABLET PO SCH (09:00)
[2020-03-01 09:28] LABS: BUN/Creatinine Ratio 13 (6-26); Blood Urea Nitrogen 12 mg/dL (8-23); Calcium 8.3 mg/dL (8.6-10.3); Carbon Dioxide 26 mEq/L (23-29); Chloride 106 mEq/L (98-107); Glucose 119 mg/dL (70-105); Magnesium 2.1 mg/dL (1.6-2.6); Osmolality,Calculated 285 (280-300); Phosphorous 2.7 mg/dL (2.7-4.5); Potassium 3.5 mEq/L (3.5-5.1); Sodium 137 mEq/L (136-145); eGFR For African Americans > 60 (> 60); eGFR For Non-African Americans 55 (> 60)
[2020-03-01] MEDS ORDERED: Furosemide 40 MG/4 ML VIAL IVP ONE (10:06)
[2020-03-01] MEDS: Azithromycin 500 MG in 0.9 % Sodium Chloride 250 ML IVPB SCH (17:19)
[2020-03-02 05:13] LABS: Basophils % 0.4 %; Eosinophils # 0.1 K/mcL (0.0-0.6); Eosinophils % 1.8 %; Hemoglobin 10.8 g/dL (11.5-15.4); Immature Granulocytes % 0.2 % (0-4); Lymphocytes # 1.2 K/mcL (0.6-4.6); Lymphocytes % 26.3 %; Mean Corpuscular Hemoglobin 24.3 pg (28.0-33.3); Mean Corpuscular Volume 81.1 fL (83.0-100.0); Mean Platelet Volume 10.5 fL (9.4-12.4); Monocytes # 0.4 K/mcL (0.0-1.3); Monocytes % 9.9 %; Neutrophils # 2.7 K/mcL (1.6-8.9); Platelet Count 209 K/mcL (140-400); Red Blood Count 4.44 M/mcL (3.82-4.97); Red Cell Distribution Width 17.5 % (11.5-14.5); Segmented Neutrophils % 61.4 %; White Blood Count 4.5 K/mcL (4.3-11.1)
[2020-03-02 05:21] LABS: Fibrinogen 264 mg/dL (169-393)
[2020-03-02 05:23] LABS: D-Dimer 883 ng/mLFEU (0-500)
[2020-03-02 05:29] LABS: Alanine Aminotransferase 11 Units/L (7-52); Albumin 3.4 g/dL (3.5-5.7); Albumin/Globulin Ratio 1.7 (1.1-2.2); Alkaline Phosphatase 69 Units/L (34-104); Aspartate Amino Transferase 23 Units/L (13-39); BUN/Creatinine Ratio 13 (6-26); Bilirubin,Indirect 0.4 mg/dL (0.0-1.0); Bilirubin,Total 0.4 mg/dL (0.3-1.0); Blood Urea Nitrogen 12 mg/dL (8-23); C-Reactive Protein < 5 mg/L (Less than 10); Calcium 8.3 mg/dL (8.6-10.3); Carbon Dioxide 24 mEq/L (23-29); Chloride 106 mEq/L (98-107); Glucose 139 mg/dL (70-105); Osmolality,Calculated 290 (280-300); Potassium 3.1 mEq/L (3.5-5.1); Sodium 139 mEq/L (136-145); Total Protein 5.4 g/dL (6.4-8.9); eGFR For African Americans > 60 (> 60); eGFR For Non-African Americans 57 (> 60)
[2020-03-02] MEDS: cefTRIAXone 1,000 MG in Water for inj. (sterile) 10 ML IVP SCH (08:10)
[2020-03-02] MEDS: Apixaban 5 MG TABLET PO SCH (08:11)
[2020-03-02] MEDS: amLODIPine 5 MG TABLET PO SCH (08:11)
[2020-03-02] MEDS: Insulin LISPRO 300 UNITS/3 ML VIAL SQ SCH ×2 (08:14→12:39)
[2020-03-02] MEDS ORDERED: Furosemide 40 MG/4 ML VIAL IVP ONE (08:52)
[2020-03-02 11:45] VITALS: BP 145/74
[2020-03-02] MEDS ORDERED: Budesonide/Formoterol 160/4.5 1 PUFF INH IH SCH (22:00)
== END 2020-03-02 18:27 | disposition home or self-care (01) ==
LOC: EMEROOARM 13:45 → 2NENU 13:45 → SUATTDRO 16:42 → 2NENU 18:12
PROVIDERS: ADMIT Student in an Organized Health Care Education/Training Program; ATTEND Student in an Organized Health Care Education/Training Program